=== PATIENT | female | born 1950 | race American Indian/Alaskan Native ===

== ENCOUNTER 2019-04-22 23:03 | Emergency (ER) | payer MEDICARE ==
[2019-04-22] MEDS ORDERED: MORPHINE 4 MG/1 ML INJ IM ONE (23:13)
[2019-04-22] MEDS ORDERED: ONDANSETRON 4 MG/2 ML INJ IM ONE (23:13)
--- NOTE | 2019-04-22 23:17 | Emergency Department Report ---
ED Back Pain/Injury HPI - General Chief Complaint: Back Pain/Injury Stated Complaint: BACK PAIN Time Seen by Provider: 04/22/19 23:09 Source: patient, EMS Limitations: Physical Limitation - History of Present Illness Initial Comments: Patient is 68 years old female, nontoxic, with history of diabetes and seizure. Patient brought to the emergency room via EMS from home for evaluation of sudden onset of lower back pain. Patient stated that she was bending to grab something from the ground when all of a sudden started having CVA or lower back pain. Patient described her pain as sharp with no radiation. Patient denied any weakness numbness or tingling sensation in the lower extremities. She also denied any bowel or bladder incontinence. No fever. MD Complaint: back pain, back injury -: This evening Similar Symptoms Previously: No Place: home Radiation: none Severity: moderate Quality: sharp Consistency: intermittent Improves With: immobilization Worsens With: movement Context: bending Associated Symptoms: denies other symptoms - Related Data Home Medications Medication Instructions Recorded Confirmed Last Taken Depakote 750 mg PO BID 10/22/15 10/22/15 Unknown Elavil 25 mg PO QHS 10/22/15 10/22/15 Unknown Lidocaine Topical 5% TRANSDERMA BID 10/22/15 Unknown Lopressor 25 mg PO DAILY 10/22/15 10/22/15 Unknown Norvasc 10 mg PO DAILY 10/22/15 10/22/15 Unknown Ventolin HFA 2 puff INHALATION Q6H PRN 10/22/15 10/22/15 Unknown Previous Rx's Medication Instructions Recorded Last Taken Type levoFLOXacin [Levaquin] 750 mg PO QDAY #10 tablet 10/27/15 Unknown Rx Allergies Allergy/AdvReac Type Severity Reaction Status Date / Time No Known Allergies Allergy Verified 10/22/15 09:48 ED Review of Systems ROS: Stated complaint: BACK PAIN Other details as noted in HPI Comment: All other systems reviewed and negative Constitutional: denies: chills, fever Respiratory: denies: cough, shortness of breath Cardiovascular: denies: chest pain Gastrointestinal: denies: abdominal pain, nausea, vomiting Musculoskeletal: back pain. denies: joint swelling Neurological: denies: headache, weakness, numbness, paresthesias, confusion, ab normal gait ED Past Medical Hx - Past Medical History Hx Hypertension: Yes Hx Arthritis: Yes Hx Seizures: Yes - Surgical History Additional Surgical History: Hysterectomy, Tonsillectomy - Social History Smoking Status: Never Smoker - Medications Home Medications: Home Medications Medication Instructions Recorded Confirmed Last Taken Type Depakote 750 mg PO BID 10/22/15 10/22/15 Unknown History Elavil 25 mg PO QHS 10/22/15 10/22/15 Unknown History Lidocaine Topical 5% TRANSDERMA BID 10/22/15 Unknown History Lopressor 25 mg PO DAILY 10/22/15 10/22/15 Unknown History Norvasc 10 mg PO DAILY 10/22/15 10/22/15 Unknown History Ventolin HFA 2 puff INHALATION Q6H PRN 10/22/15 10/22/15 Unknown History levoFLOXacin [Levaquin] 750 mg PO QDAY #10 tablet 10/27/15 Unknown Rx ED Physical Exam - General Limitations: Physical Limitation General appearance: alert, in no apparent distress - Head Head exam: Present: atraumatic, normocephalic, normal inspection - Eye Eye exam: Present: normal appearance - ENT ENT exam: Present: normal exam, normal orophraynx, mucous membranes moist - Neck Neck exam: Present: normal inspection - Respiratory Respiratory exam: Present: normal lung sounds bilaterally - Cardiovascular Cardiovascular Exam: Present: regular rate, normal rhythm, normal heart sounds - GI/Abdominal GI/Abdominal exam: Present: soft, normal bowel sounds. Absent: distended, tenderness, guarding, rebound, rigid, organomegaly, mass, bruit, pulsatile mass, hernia - Extremities Exam Extremities exam: Present: normal inspection, full ROM, normal capillary refill - Back Exam Back exam: Present: normal inspection, full ROM, paraspinal tenderness. Absent: tenderness, CVA tenderness (R), CVA tenderness (L), muscle spasm, vertebral tenderness - Neurological Exam Neurological exam: Present: alert, oriented X3, CN II-XII intact, normal gait, reflexes normal - Psychiatric Psychiatric exam: Present: normal mood - Skin Skin exam: Present: warm, intact, normal color ED Course Vital Signs 04/22/19 23:16 Temperature 98.3 F Pulse Rate 103 H Respiratory 18 Rate Blood Pressure 153/97 O2 Sat by Pulse 97 Oximetry ED Medical Decision Making - Medical Decision Making Patient is 68 years old female, nontoxic, with history of diabetes and seizure. Patient brought to the emergency room via EMS from home for evaluation of sudden onset of lower back pain. Patient stated that she was bending to grab something from the ground when all of a sudden started having CVA or lower back pain. Patient described her pain as sharp with no radiation. Patient denied any weakness numbness or tingling sensation in the lower extremities. She also denied any bowel or bladder incontinence. No fever. Patient received morphine and Zofran. Patient is sleeping comfortably in no acute distress. Patient stated that she is feeling much better. CT lumbar spine is unremarkable except for degenerative disease. Patient advised to follow-up with her primary care physician in the next 2-3 days and to return to the ER if symptoms have not improved. Critical care attestation.: If time is entered above; I have spent that time in minutes in the direct care of this critically ill patient, excluding procedure time. ED Disposition Clinical Impression: Acute back pain Disposition: DC-01 TO HOME OR SELFCARE Is pt being admited?: No Condition: Stable Instructions: Acute Low Back Pain (ED) Referrals: PRIMARY CARE [Referring] - 3-5 Days
--- NOTE | 2019-04-23 01:02 | Cat Scan Report ---
Examination: CT of the lumbar spine without contrast, 04/23/2019 Clinical information: Low back pain after heavy lifting Comparison: None Technical: Multiple axial CT images of the lumbar spine were obtained without intravenous contrast. S agittal and coronal reformats were obtained. All CTs at this facility utilize dose reduction techniq ues including automated exposure control, iterative reconstruction and weight based dosing when appro priate to reduce patient radiation dose to as low as reasonable achievable. Findings: There are moderately advanced bony degenerative changes throughout the lumbar spine with multilevel f acet arthropathy and anterior osteophyte formation. There is moderate disc space narrowing at the L4- L5 and L5-S1 level. Vertebral body alignment appears normal. Evaluation of limited intra-abdominal contents demonstrates multiple pancreatic calcifications. Impression: 1. Advanced degenerative changes of the lumbar spine. 2. Pancreatic calcifications compatible with chronic pancreatitis. Signer Name: Arelis Pop MD Signed: 04/23/2019 12:58 AM Workstation Name: [id number]
[2019-04-23 02:57] VITALS: BP 108/63
== END 2019-04-23 03:14 | disposition home or self-care (01) ==
LOC: ED 23:03
DX: M54.89 Other dorsalgia (principal); I10 Essential (primary) hypertension; M19.90 Unspecified osteoarthritis, unspecified site; Z86.69 Personal history of other diseases of the nervous system and sense organs; Z90.710 Acquired absence of both cervix and uterus; Z98.890 Other specified postprocedural states; Z79.899 Other long term (current) drug therapy
CPT/HCPCS: 72131; 96372; 99284; J2270; J2405

== ENCOUNTER 2019-09-01 22:17 | Inpatient (IN) | payer MEDICARE ==
--- NOTE | 2019-09-01 22:25 | Emergency Department Report ---
ED Shortness of Breath HPI - General Stated Complaint: SVT Time Seen by Provider: 09/01/19 22:20 Source: patient Mode of arrival: Stretcher Limitations: No Limitations - History of Present Illness Initial Comments: Ms. Valdovinos is a 69-year-old female with history of SVT, hypertension, seizure, diabetes mellitus who presents with shortness of breath since 10 AM this morning. She called her PCP Dr. Anam Vidales who recommended 911 transfer to the emergency department going directly to the emergency department. Upon arrival EMS discovered the patient did have labored breathing heart rate greater than 200. Systolic blood pressure 240 mmHg. Initial impression EMS ventricu lar tachycardia. Treated with amiodarone and adenosine. Upon my review of the EMS strip rhythm was narrow complex tachycardia, SVT. Patient denies chest pain. Patient does smoke tobacco. Patient denies fever, cough, sick contacts, travel. She has been home with male roommate. Current medications amitriptyline 25 mg 1 tablet p.o. at bedtime Januvia 100 mg 1 tablet daily Lisinopril 2.5 mg 1 tablet daily Amlodipine 2.5 mg 1 tablet daily Divalproex 250 mg ER 3 tablets twice daily Complaint: shortness of breath -: Gradual, This morning Severity: severe Consistency: constant Improves With: oxygen Worsens With: nothing Known History Of: other (SVT pulmonary embolism hypertension no history of coronary artery disease according to her report) - Related Data Home Medications Medication Instructions Recorded Confirmed Last Taken Amitriptyline [Elavil] 25 mg PO QHS 09/01/19 09/01/19 Unknown Amlodipine Besylate [Norvasc] 2.5 mg PO DAILY 09/01/19 09/01/19 Unknown Divalproex ER [DepaKOTE ER] 250 mg PO BID 09/01/19 09/01/19 Unknown Lisinopril [Zestril TAB] 2.5 mg PO QDAY 09/01/19 09/01/19 Unknown Sitagliptin Phosphate [Januvia] 100 mg PO DAILY 09/01/19 09/01/19 Unknown Allergies Allergy/AdvReac Type Severity Reaction Status Date / Time No Known Allergies Allergy Verified 10/22/15 09:48 ED Review of Systems ROS: Stated complaint: SVT Other details as noted in HPI Comment: All other systems reviewed and negative Constitutional: denies: fever, malaise Respiratory: shortness of breath. denies: cough Cardiovascular: palpitations. denies: chest pain Gastrointestinal: denies: abdominal pain ED Past Medical Hx - Past Medical History Previous Medical History?: Yes Hx Hypertension: Yes Hx Arthritis: Yes Hx Seizures: Yes - Surgical History Past Surgical History?: Yes Additional Surgical History: Hysterectomy, Tonsillectomy - Social History Smoking Status: Current Every Day Smoker - Medications Home Medications: Home Medications Medication Instructions Recorded Confirmed Last Taken Type Amitriptyline [Elavil] 25 mg PO QHS 09/01/19 09/01/19 Unknown History Amlodipine Besylate [Norvasc] 2.5 mg PO DAILY 09/01/19 09/01/19 Unknown History Divalproex ER [DepaKOTE ER] 250 mg PO BID 09/01/19 09/01/19 Unknown History Lisinopril [Zestril TAB] 2.5 mg PO QDAY 09/01/19 09/01/19 Unknown History Sitagliptin Phosphate [Januvia] 100 mg PO DAILY 09/01/19 09/01/19 Unknown History ED Physical Exam - General General appearance: alert, in no apparent distress - Head Head exam: Present: atraumatic, normocephalic - Eye Eye exam: Present: normal appearance. Absent: scleral icterus, conjunctival injection - ENT ENT exam: Present: mucous membranes moist - Neck Neck exam: Present: normal inspection - Respiratory Respiratory exam: Present: normal lung sounds bilaterally. Absent: respiratory distress, wheezes, rales, rhonchi - Cardiovascular Cardiovascular Exam: Present: normal rhythm, tachycardia, normal heart sounds. Absent: systolic murmur, diastolic murmur, rubs, gallop - GI/Abdominal GI/Abdominal exam: Present: soft, normal bowel sounds. Absent: distended, tenderness, guarding, rebound - Extremities Exam Extremities exam: Present: normal inspection - Neurological Exam Neurological exam: Present: alert, oriented X3 - Psychiatric Psychiatric exam: Present: normal affect, normal mood - Skin Skin exam: Present: warm, dry, intact, normal color. Absent: rash ED Course Vital Signs 09/01/19 09/01/19 09/01/19 22:27 22:29 23:00 Temperature 99.1 F Pulse Rate 113 H 118 H 112 H Respiratory 28 H 17 Rate Blood Pressure 124/80 Blood Pressure 124/80 [Right] O2 Sat by Pulse 98 95 Oximetry 09/02/19 09/02/19 00:00 00:30 Temperature Pulse Rate 102 H 100 H Respiratory 21 27 H Rate Blood Pressure 115/69 115/69 Blood Pressure [Right] O2 Sat by Pulse 89 96 Oximetry ED Medical Decision Making - Lab Data Result diagrams: 09/01/19 22:42 09/01/19 22:42 Laboratory Results - last 24 hr 09/01/19 09/01/19 09/01/19 22:42 22:42 22:42 WBC 8.1 RBC 4.68 Hgb 15.7 H Hct 45.9 H MCV 98 H MCH 34 H MCHC 34 RDW 15.2 Plt Count 110 L Lymph % (Auto) 10.3 L [place] % (Auto) 4.1 Eos % (Auto) 0.4 Baso % (Auto) 1.1 Lymph # 0.8 L [place] # 0.3 Eos # 0.0 Baso # 0.1 Seg Neutrophils % 84.1 H Seg Neutrophils # 6.8 PT 13.8 INR 1.05 APTT 25.7 D-Dimer 374.58 H Sodium 135 L Potassium 3.4 L Chloride 95.5 L Carbon Dioxide 25 Anion Gap 18 BUN 19 H Creatinine 1.4 H Estimated GFR 45 BUN/Creatinine Ratio 14 Glucose 146 H Calcium 9.3 Total Bilirubin 0.50 AST 18 ALT 8 Alkaline Phosphatase 72 Troponin T 0.031 H NT-Pro-B Natriuret Pep Total Protein 7.2 Albumin 3.2 L Albumin/Globulin Ratio 0.8 Triglycerides 147 Cholesterol 190 LDL Cholesterol Direct 125 HDL Cholesterol 32 L Cholesterol/HDL Ratio 5.93 09/01/19 09/02/19 22:42 01:15 WBC RBC Hgb Hct MCV MCH MCHC RDW Plt Count Lymph % (Auto) [place] % (Auto) Eos % (Auto) Baso % (Auto) Lymph # [place] # Eos # Baso # Seg Neutrophils % Seg Neutrophils # PT INR APTT D-Dimer Sodium Potassium Chloride Carbon Dioxide Anion Gap BUN Creatinine Estimated GFR BUN/Creatinine Ratio Glucose Calcium Total Bilirubin AST ALT Alkaline Phosphatase Troponin T 0.070 H D NT-Pro-B Natriuret Pep 532.1 Total Protein Albumin Albumin/Globulin Ratio Triglycerides Cholesterol LDL Cholesterol Direct HDL Cholesterol Cholesterol/HDL Ratio - EKG Data 09/01/19 22:25 EKG obtained 2216 Sinus tachycardia rate 115 bpm left axis deviation right bundle branch block no ST elevation nonspecific T wave pattern - Radiology Data Radiology results: report reviewed Portable chest 1 view: Mild interstitial disease no airspace consolidation no pneumothorax according to radiology report and my personal interpretation Lung perfusion scan: Bilateral subsegmental perfusion defects differential diagnosis chronic interstitial fibrosis versus small pulmonary emboli - Medical Decision Making Mrs. 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 For rate control per EMS patient required antiarrhythmic and AV lisa blockade with amiodarone and adenosine respectively. Due to comorbid illnesses and cardiovascular risk factors, further inpatient cardiac evaluation is indicated. Due to moderate suspicion of pulmonary embolism and equivocal lung perfusion scan, I do not suspect acute pulmonary embolism as a cause of her symptoms including SVT. CTA unable to be obtained due to lack of appropriate IV access and decreased GFR. Tachycardia has spontaneously resolved. Critical care attestation.: If time is entered above; I have spent that time in minutes in the direct care of this critically ill patient, excluding procedure time. ED Disposition Clinical Impression: SVT (supraventricular tachycardia), Dyspnea Disposition: 09 OP ADMIT IP TO THIS HOSP Is pt being admited?: Yes Does the pt Need Aspirin: No Condition: Stable
[2019-09-01] MEDS ORDERED: ASPIRIN 325 MG TAB PO ONE (22:26)
--- NOTE | 2019-09-01 23:11 | XRay Report ---
CHEST 1 VIEW INDICATION / CLINICAL INFORMATION: Shortness of breath. COMPARISON: 10/26/2015 FINDINGS: SUPPORT DEVICES: None. HEART / MEDIASTINUM: No significant abnormality. LUNGS / PLEURA: There is mild interstitial prominence bilaterally, increased since the comparison bryan dy. No demonstrated airspace consolidation. No pneumothorax. ADDITIONAL FINDINGS: No significant additional findings. IMPRESSION: 1. Mild interstitial disease. Signer Name: Ezekiel Berrios MD Signed: 09/01/2019 11:07 PM Workstation Name: [id number]
[2019-09-01 23:23] LABS: Basophils # (Auto) 0.1 K/mm3 (0.0-0.1); Basophils % (Auto) 1.1 % (0.0-1.8); Eosinophils % (Auto) 0.4 % (0.0-4.3); Hematocrit 45.9 % (30.3-42.9); Hemoglobin 15.7 gm/dl (10.1-14.3); Lymphocytes # (Auto) 0.8 K/mm3 (1.2-5.4); Lymphocytes % (Auto) 10.3 % (13.4-35.0); Mean Corpuscular HGB Conc 34 % (30-34); Mean Corpuscular Volume 98 fl (79-97); Monocytes # (Auto) 0.3 K/mm3 (0.0-0.8); Monocytes % (Auto) 4.1 % (0.0-7.3); Platelet Count 110 K/mm3 (140-440); Red Blood Count 4.68 M/mm3 (3.65-5.03); Red Cell Distribution Width 15.2 % (13.2-15.2)
[2019-09-01 23:41] LABS: INR 1.05 (0.87-1.13)
[2019-09-01 23:42] LABS: Partial Thromboplastin Time 25.7 Sec. (24.2-36.6)
[2019-09-01 23:43] LABS: Albumin 3.2 g/dL (3.9-5); Calcium 9.3 mg/dL (8.4-10.2)
[2019-09-02 01:11] LABS: Chol/HDL Ratio 5.93 %
--- NOTE | 2019-09-02 01:29 | Nuclear Medicine Report ---
NM perfusion only lung scan INDICATION / CLINICAL INFORMATION: dyspnea tachycardia hx of PE. TECHNIQUE: Dose / Agent / Route: 5mCi technetium 99m MAA IV COMPARISON: AP chest x-ray 09/01/2019 FINDINGS: There are bilateral subsegmental perfusion defects. There is upper zone predominance. Interstitial opacity on the chest x-ray may represent chronic lung disease. IMPRESSION: 1. Abnormal perfusion scan most likely on the basis of chronic interstitial fibrosis but small pulmon donna emboli could produce these findings. Signer Name: Ezekiel Berrios MD Signed: 09/02/2019 1:25 AM Workstation Name: [id number]
[2019-09-02] MEDS ORDERED: DEXTROSE 50% IN WATER (25GM) 50 ML SYRINGE IV PRN (02:54)
[2019-09-02] MEDS ORDERED: ONDANSETRON 4 MG/2 ML INJ IV PRN (02:54)
--- NOTE | 2019-09-02 03:00 | History and Physical Report ---
History of Present Illness History of present illness: 69-year-old woman with hypertension, diabetes, chronic kidney disease comes emergency room for evaluation. She stated that this morning she started having palpitations, symptoms worsen so she came to the emergency room for evaluation. Also complain of a dry cough, no fever, chills, recent travel, sick contacts. Per EMS report the patient was in SVT with a rate in the 200s, blood pressure was also in the 200s, she was given adenosine then amiodarone. Patient is now in normal sinus, regular rate. Patient will be admitted for pneumonia, rule out covid Review Of Systems: Constitutional: no weight loss, fever, chills Ears, eyes, nose, mouth and throat: no nasal congestion, no nasal discharge, no sinus pressure, blurry vision, diplopia Neck: No neck pain or rigidity. Cardiovascular: No palpitations, chest pain Respiratory: No shortness of breath, cough Gastrointestinal: No hematochezia Genitourinary : no dysuria, frequency Musculoskeletal: no muscle ache , joint pain Integumentary: no rash, no pruritis Neurological: no parathesias, focal weakness Endocrine: no cold or heat intolerance, no polyuria or polydipsia Hematologic/Lymphatic: no easy bruising, no easy bleeding, no gland swelling Allergic/Immunologic: no urticaria, no angioedema. PAST MEDICAL HISTORY: hypertension, diabetes, chronic kidney disease PAST SURGICAL HISTORY: hysterectomy SOCIAL HISTORY: Social alcohol, smoke 1 pack a day, no drugs FAMILY HISTORY: Hypertension Medications and Allergies Allergies Allergy/AdvReac Type Severity Reaction Status Date / Time No Known Allergies Allergy Verified 10/22/15 09:48 Home Medications Medication Instructions Recorded Confirmed Last Taken Type Amitriptyline [Elavil] 25 mg PO QHS 09/01/19 09/01/19 Unknown History Amlodipine Besylate [Norvasc] 2.5 mg PO DAILY 09/01/19 09/01/19 Unknown History Divalproex ER [DepaKOTE ER] 250 mg PO BID 09/01/19 09/01/19 Unknown History Lisinopril [Zestril TAB] 2.5 mg PO QDAY 09/01/19 09/01/19 Unknown History Sitagliptin Phosphate [Januvia] 100 mg PO DAILY 09/01/19 09/01/19 Unknown History Active Meds: Active Medications Acetaminophen (Tylenol) 650 mg PO Q4H PRN PRN Reason: Pain MILD(1-3)/Fever >100.5/NÚÑEZ Dextrose (D50w (25gm) Syringe) 50 ml IV Q30MIN PRN; Protocol PRN Reason: Hypoglycemia Enoxaparin Sodium (Enoxaparin) 30 mg SUB-Q QDAY EYAD Sodium Chloride (Nacl 0.9% 1000 Ml) 1,000 mls @ 75 mls/hr IV DIRECT EYAD Ondansetron HCl (Zofran) 4 mg IV Q8H PRN PRN Reason: Nausea And Vomiting Sodium Chloride (Sodium Chloride Flush Syringe 10 Ml) 10 ml IV BID EYAD Sodium Chloride (Sodium Chloride Flush Syringe 10 Ml) 10 ml IV PRN PRN PRN Reason: LINE FLUSH Exam - Physical Exam Narrative exam: Gen. appearance: Patient lying in bed, no apparent distress HEENT: Normocephalic, atraumatic, pupils equally round and reactive to light, extraocular movement intact, and no sclericterus,. No JVD or thyromegaly or nod ule,neck supple, no carotid bruit ,mucous membranes moist, no exudate or erythema Heart: S1, S2, regular rate and rhythm Lungs: Decreased breath sounds bilaterally, breathing comfortable Abdomen: Positive bowel sounds, nontender, nondistended, no organomegaly Extremity: no edema, cyanosis, clubbing Skin: No rash, nodules, warm, dry Neuro: speech is fluent, moves extremities, sensory intact - Constitutional Vitals: Temp Pulse Resp BP Pulse Ox 99.1 F 81 25 H 112/70 95 09/01/19 22:27 09/02/19 02:30 09/02/19 02:30 09/02/19 02:30 09/02/19 02:30 Results - Labs CBC & Chem 7: 09/01/19 22:42 09/01/19 22:42 Labs: Abnormal lab results 09/01/19 09/01/19 09/01/19 Range/Units 22:42 22:42 22:42 Hgb 15.7 H (10.1-14.3) gm/dl Hct 45.9 H (30.3-42.9) % MCV 98 H (79-97) fl MCH 34 H (28-32) pg Plt Count 110 L (140-440) K/mm3 Lymph % (Auto) 10.3 L (13.4-35.0) % Lymph # 0.8 L (1.2-5.4) K/mm3 Seg Neutrophils % 84.1 H (40.0-70.0) % D-Dimer 374.58 H (0-234) ng/mlDDU Sodium 135 L (137-145) mmol/L Potassium 3.4 L (3.6-5.0) mmol/L Chloride 95.5 L (98-107) mmol/L BUN 19 H (7-17) mg/dL Creatinine 1.4 H (0.7-1.2) mg/dL Glucose 146 H (65-100) mg/dL Troponin T 0.031 H (0.00-0.029) ng/mL Albumin 3.2 L (3.9-5) g/dL HDL Cholesterol 32 L (40-59) mg/dL 09/02/19 Range/Units 01:15 Hgb (10.1-14.3) gm/dl Hct (30.3-42.9) % MCV (79-97) fl MCH (28-32) pg Plt Count (140-440) K/mm3 Lymph % (Auto) (13.4-35.0) % Lymph # (1.2-5.4) K/mm3 Seg Neutrophils % (40.0-70.0) % D-Dimer (0-234) ng/mlDDU Sodium (137-145) mmol/L Potassium (3.6-5.0) mmol/L Chloride (98-107) mmol/L BUN (7-17) mg/dL Creatinine (0.7-1.2) mg/dL Glucose (65-100) mg/dL Troponin T 0.070 H D (0.00-0.029) ng/mL Albumin (3.9-5) g/dL HDL Cholesterol (40-59) mg/dL - Imaging and Cardiology EKG: image reviewed Chest x-ray: report reviewed Assessment and Plan Assessment Assessment SVT Check cardiac enzymes, consult cardiology v/q equivocial, check doppler of LE Fever, cough, rule out covid Start Rocephin, consult ID Placed on contact and droplet precaution Paperwork for COVID were filled out, Department of Health notified Hypertension Continue outpatient medications Diabetes check fingersticks, start insulin sliding scale DVT prophylaxis
[2019-09-02] MEDS: SODIUM CHLORIDE 0.9% 1000 ML 1,000 ML IV SCH ×3 (03:39→21:38)
[2019-09-02 04:31] LABS: Creatine Kinase MB 2.9 ng/mL (0.0-4.0)
[2019-09-02] MEDS: DIVALPROEX ER 250 MG TAB PO SCH ×2 (09:53→21:50)
[2019-09-02] MEDS: ENOXAPARIN 40 MG/0.4 ML INJ SUB-Q SCH (09:53)
[2019-09-02] MEDS: LISINOPRIL 5 MG TAB PO SCH (09:53)
[2019-09-02] MEDS: LINAGLIPTIN 5 MG TAB PO SCH (09:53)
[2019-09-02] MEDS ORDERED: NON-FORMULARY EACH (Sitagliptin Phosphate [Januvia] 100 MG) PO SCH (10:00)
[2019-09-02] MEDS ORDERED: AMLODIPINE BESYLATE 2.5 MG PO SCH (10:00)
[2019-09-02] MEDS ORDERED: amLODIPine 5 MG TAB PO SCH (10:00)
[2019-09-02] MEDS ORDERED: NON-FORMULARY EACH (Lisinopril [Zestril Tab] 2.5 MG) PO SCH (10:00)
[2019-09-02 10:07] LABS: Calcium 8.8 mg/dL (8.4-10.2)
[2019-09-02 10:08] LABS: Creatine Kinase MB 3.1 ng/mL (0.0-4.0)
[2019-09-02 10:09] LABS: C-Reactive Protein 13.1 mg/dL (0.00-1.30)
--- NOTE | 2019-09-02 13:25 | Consultation ---
History of Present Illness Consult date: 09/02/19 Requesting physician: VIKTOR DELUCA Consult reason: other (svt) History of present illness: The pt is a 69-year-old female with history of paroxysmal SVT, hypertension, seizure disorder, diabetes. She is previously unknown to our practice. Pt is COVID-19 PUI and thus HPI is obtained per the chart. Pt presented with c/o SOB since yesterday morning. She called her PCP Dr. Anam Vidales who recommended 911 transfer to the emergency department. Upon EMS arrival, patient found to have labored breathing heart rate greater than 200. Systolic blood pressure 240 mmHg. Initial impression per EMS ventricular tachycardia, pt was given amiodarone and adenosine. Per ED physician, EMS strip rhythm showed narrow complex tachycardia, SVT. Rhythm strips are not currently available for review. Review of ECG and telemetry since admission shows NSR. 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 Past History Past Medical History: other (as per HPI) Medications and Allergies Allergies Allergy/AdvReac Type Severity Reaction Status Date / Time No Known Allergies Allergy Verified 10/22/15 09:48 Home Medications Medication Instructions Recorded Confirmed Last Taken Type Amitriptyline [Elavil] 25 mg PO QHS 09/01/19 09/01/19 Unknown History Amlodipine Besylate [Norvasc] 2.5 mg PO DAILY 09/01/19 09/01/19 Unknown History Divalproex ER [DepaKOTE ER] 250 mg PO BID 09/01/19 09/01/19 Unknown History Lisinopril [Zestril TAB] 2.5 mg PO QDAY 09/01/19 09/01/19 Unknown History Sitagliptin Phosphate [Januvia] 100 mg PO DAILY 09/01/19 09/01/19 Unknown History Active Meds: Active Medications Acetaminophen (Tylenol) 650 mg PO Q4H PRN PRN Reason: Pain MILD(1-3)/Fever >100.5/NÚÑEZ Amitriptyline HCl (Elavil) 25 mg PO QHS [facility] Amlodipine Besylate (Amlodipine) 2.5 mg PO QDAY [facility] Last Admin: 09/02/19 09:53 Dose: 2.5 mg Documented by: Dextrose (D50w (25gm) Syringe) 0 ml IV Q30MIN PRN; Protocol PRN Reason: Hypoglycemia Divalproex Sodium (Depakote Er) 250 mg PO BID [facility] Last Admin: 09/02/19 09:53 Dose: 250 mg Documented by: Enoxaparin Sodium (Enoxaparin) 40 mg SUB-Q QDAY [facility] Last Admin: 09/02/19 09:53 Dose: 40 mg Documented by: Sodium Chloride (Nacl 0.9% 1000 Ml) 1,000 mls @ 75 mls/hr IV DIRECT [facility] Last Admin: 09/02/19 03:39 Dose: 75 mls/hr Documented by: Linagliptin (Tradjenta) 5 mg PO QDAY [facility] Last Admin: 09/02/19 09:53 Dose: 5 mg Documented by: Lisinopril (Zestril) 2.5 mg PO QDAY [facility] Last Admin: 09/02/19 09:53 Dose: 2.5 mg Documented by: Ondansetron HCl (Zofran) 4 mg IV Q8H PRN PRN Reason: Nausea And Vomiting Sodium Chloride (Sodium Chloride Flush Syringe 10 Ml) 10 ml IV BID [facility] Last Admin: 09/02/19 09:53 Dose: 10 ml Documented by: Sodium Chloride (Sodium Chloride Flush Syringe 10 Ml) 10 ml IV PRN PRN PRN Reason: LINE FLUSH Review of Systems All systems: negative (as per HPI) Physical Examination Vital Signs Temp Pulse Resp BP Pulse Ox 99.1 F 113 H 28 H 124/80 98 09/01/19 22:27 09/01/19 22:27 09/01/19 22:27 09/01/19 22:27 09/01/19 22:27 Narrative exam: Physical examination deferred to primary team Results 09/01/19 22:42 09/02/19 08:24 Cardiac Enzymes 09/01/19 09/02/19 09/02/19 Range/Units 22:42 03:58 08:24 AST 18 (5-40) units/L Lactate Dehydrogenase 266 H (91-180) units/L CK-MB (CK-2) 2.9 3.1 (0.0-4.0) ng/mL Coagulation 09/01/19 Range/Units 22:42 PT 13.8 (12.2-14.9) Sec. INR 1.05 (0.87-1.13) APTT 25.7 (24.2-36.6) Sec. Lipids 09/01/19 Range/Units 22:42 Triglycerides 147 (2-149) mg/dL Cholesterol 190 (50-199) mg/dL HDL Cholesterol 32 L (40-59) mg/dL Cholesterol/HDL Ratio 5.93 % CBC 09/01/19 Range/Units 22:42 WBC 8.1 (4.5-11.0) K/mm3 RBC 4.68 (3.65-5.03) M/mm3 Hgb 15.7 H (10.1-14.3) gm/dl Hct 45.9 H (30.3-42.9) % Plt Count 110 L (140-440) K/mm3 Lymph # 0.8 L (1.2-5.4) K/mm3 [place] # 0.3 (0.0-0.8) K/mm3 Eos # 0.0 (0.0-0.4) K/mm3 Baso # 0.1 (0.0-0.1) K/mm3 Comprehensive Metabolic Panel 09/01/19 09/02/19 Range/Units 22:42 08:24 Sodium 135 L 134 L (137-145) mmol/L Potassium 3.4 L 3.6 (3.6-5.0) mmol/L Chloride 95.5 L 93.8 L (98-107) mmol/L Carbon Dioxide 25 25 (22-30) mmol/L BUN 19 H 22 H (7-17) mg/dL Creatinine 1.4 H 1.2 (0.7-1.2) mg/dL Glucose 146 H 102 H (65-100) mg/dL Calcium 9.3 8.8 (8.4-10.2) mg/dL AST 18 (5-40) units/L ALT 8 (7-56) units/L Alkaline Phosphatase 72 (35-129) units/L Total Protein 7.2 (6.3-8.2) g/dL Albumin 3.2 L (3.9-5) g/dL - Imaging and Cardiology Echo: pending EKG: report reviewed, image reviewed EKG interpretations - Telemetry EKG Rhythm: Sinus Rhythm - EKG Sinus rhythms and dysrhythmias: sinus rhythm AV and intraventricular conduction: right bundle branch block, left anterior fascicular Assessment and Plan Initiate lopressor. Obtain thyroid profile and serum Mg. Obtain echo. Cont to observe on telemetry. Consider stress test once medically stabilized - could be done as OP. R/o COVID-19 per primary. Will follow. The patient has been seen in conjunction with Dr. Yessy Choe who agrees with the assessment and plan of care. - Patient Problems (1) SVT (supraventricular tachycardia) Current Visit: Yes Status: Suspected (2) RBBB Current Visit: Yes Status: Acute (3) Suspected 2019 novel coronavirus infection Current Visit: Yes Status: Suspected (4) HTN (hypertension) Current Visit: Yes Status: Chronic (5) Diabetes Current Visit: Yes Status: Chronic (6) History of seizure Current Visit: Yes Status: Chronic
--- NOTE | 2019-09-02 14:31 | Event Note ---
Date: 09/02/19 Patient seen and examined remains clinically stable no new complaints at this time. She complains of bilateral knee pain which is chronic for her she has osteoarthritis. Continue rule out for COVID 19 induced pneumonia
--- NOTE | 2019-09-02 20:43 | Consultation ---
History of Present Illness - Reason for Consult Consult date: 09/02/19 r/o COVID Requesting physician: VIKTOR DELUCA - History of Present Illness 69-year-old woman with hypertension, paroximal SVT, seizure disorder, diabetes, chronic kidney disease admitted on due to 3-day history of generalized weakness, palpitations, sweats, cough and progressive SOB. She called her PCP who sent her to the ED. She lives in [place], has been mainly staying home. comes emergency room for evaluation. Per EMS report, the patient was in SVT with a rate in the 200s, blood pressure was also in the 200s, she was given adenosine then amiodarone. On arrival, temp 99.1, HR 113. WB 8.1. Plat 110. Creat 1.4. CRP 13. LDH 266. Ferritin 711. Ddimer 374. Influenza ag negative. CXR with bilateral interstitial prominence. Review of Systems: positive in bold print General: + fever, +chills, +malaise Cutaneous: rash, pruritus Head: headaches or injury Eyes: changes in vision, eye pain, double vision Ears: ear pain, ear discharge, ringing or hearing loss Nose: nose bleeding, stuffiness Mouth & throat: bleeding gums, horseness, no dental problems, or swollen glands Neck: no pain, node enlargement/lumps, tyroid enlargement or tenderness Respiratory: +SOB, +cough, +STEVENSON, wheezing, pleuritic chest pain Cardiovascular: +palpitations, chest pain, leg edema, cyanosis, STEVENSON, orthopnea Musculoskeletal: edema Gastrointestinal: nausea, vomiting, hematemesis, diarrhea, constipation, melena, bright red blood in stools, fecal incontinence, jaundice Genitourinary/Reproductive: frequent urination, dysuria, hematuria, incontinence Neurogical: seizures, headaches, weakness, paresthesias, loss of speech or vision; memory loss, vertigo, tremors, numbness Psychiatric: stable mood; excessive anxiety, sadness or moodiness Past History Past Medical History: other (as per HPI) Medications and Allergies Allergies Allergy/AdvReac Type Severity Reaction Status Date / Time No Known Allergies Allergy Verified 10/22/15 09:48 Home Medications Medication Instructions Recorded Confirmed Last Taken Type Amitriptyline [Elavil] 25 mg PO QHS 09/01/19 09/01/19 Unknown History Amlodipine Besylate [Norvasc] 2.5 mg PO DAILY 09/01/19 09/01/19 Unknown History Divalproex ER [DepaKOTE ER] 250 mg PO BID 09/01/19 09/01/19 Unknown History Lisinopril [Zestril TAB] 2.5 mg PO QDAY 09/01/19 09/01/19 Unknown History Sitagliptin Phosphate [Januvia] 100 mg PO DAILY 09/01/19 09/01/19 Unknown History Active Meds: Active Medications Acetaminophen (Tylenol) 650 mg PO Q4H PRN PRN Reason: Pain MILD(1-3)/Fever >100.5/NÚÑEZ Amitriptyline HCl (Elavil) 25 mg PO QHS [facility] Dextrose (D50w (25gm) Syringe) 0 ml IV Q30MIN PRN; Protocol PRN Reason: Hypoglycemia Divalproex Sodium (Depakote Er) 250 mg PO BID [facility] Last Admin: 09/02/19 09:53 Dose: 250 mg Documented by: Enoxaparin Sodium (Enoxaparin) 40 mg SUB-Q QDAY [facility] Last Admin: 09/02/19 09:53 Dose: 40 mg Documented by: Sodium Chloride (Nacl 0.9% 1000 Ml) 1,000 mls @ 75 mls/hr IV DIRECT [facility] Last Admin: 09/02/19 19:49 Dose: 75 mls/hr Documented by: Linagliptin (Tradjenta) 5 mg PO QDAY [facility] Last Admin: 09/02/19 09:53 Dose: 5 mg Documented by: Lisinopril (Zestril) 2.5 mg PO QDAY [facility] Last Admin: 09/02/19 09:53 Dose: 2.5 mg Documented by: Metoprolol Tartrate (Metoprolol) 25 mg PO BID [facility] Ondansetron HCl (Zofran) 4 mg IV Q8H PRN PRN Reason: Nausea And Vomiting Sodium Chloride (Sodium Chloride Flush Syringe 10 Ml) 10 ml IV BID [facility] Last Admin: 09/02/19 09:53 Dose: 10 ml Documented by: Sodium Chloride (Sodium Chloride Flush Syringe 10 Ml) 10 ml IV PRN PRN PRN Reason: LINE FLUSH Physical Examination - Physical Exam Narrative exam: Exam performed in conjunction with nursings staff due to lack of PPE General appearance: Alert in NAD Eyes: limited due to lack of PPE HENT: Atraumatic; oropharynx limited due to lack of PPE Lungs: Coarse breath sounds bilaterally CV: RRR Abdomen: limited due to lack of PPE Extremities: limited due to lack of PPE Skin: No rash. Psych: Appropriate affect, alert and oriented to person, place and time. Neuro: alert and oriented x 3. Moving all extermities - Constitutional Vitals: Vital Signs Temp Pulse Resp BP Pulse Ox 97.5 F L 100 H 22 137/72 91 09/02/19 17:28 09/02/19 18:04 09/02/19 18:04 09/02/19 17:28 09/02/19 18:04 Temperature -Last 24 Hours Temperature 97.5 F Temperature 98.0 F Temperature 97.4 F Temperature 99.1 F Results - Labs CBC & Chem 7: 09/01/19 22:42 09/02/19 08:24 Labs: Abnormal lab results 09/01/19 09/01/19 09/01/19 Range/Units 22:42 22:42 22:42 Hgb 15.7 H (10.1-14.3) gm/dl Hct 45.9 H (30.3-42.9) % MCV 98 H (79-97) fl MCH 34 H (28-32) pg Plt Count 110 L (140-440) K/mm3 Lymph % (Auto) 10.3 L (13.4-35.0) % Lymph # 0.8 L (1.2-5.4) K/mm3 Seg Neutrophils % 84.1 H (40.0-70.0) % D-Dimer 374.58 H (0-234) ng/mlDDU Sodium 135 L (137-145) mmol/L Potassium 3.4 L (3.6-5.0) mmol/L Chloride 95.5 L (98-107) mmol/L BUN 19 H (7-17) mg/dL Creatinine 1.4 H (0.7-1.2) mg/dL Glucose 146 H (65-100) mg/dL Ferritin (13.0-400.0) ng/mL Lactate Dehydrogenase (91-180) units/L CK-MB (CK-2) Rel Index (0-4) Troponin T 0.031 H (0.00-0.029) ng/mL C-Reactive Protein (0.00-1.30) mg/dL Albumin 3.2 L (3.9-5) g/dL HDL Cholesterol 32 L (40-59) mg/dL 09/02/19 09/02/19 09/02/19 Range/Units 01:15 03:58 08:24 Hgb (10.1-14.3) gm/dl Hct (30.3-42.9) % MCV (79-97) fl MCH (28-32) pg Plt Count (140-440) K/mm3 Lymph % (Auto) (13.4-35.0) % Lymph # (1.2-5.4) K/mm3 Seg Neutrophils % (40.0-70.0) % D-Dimer (0-234) ng/mlDDU Sodium (137-145) mmol/L Potassium (3.6-5.0) mmol/L Chloride (98-107) mmol/L BUN (7-17) mg/dL Creatinine (0.7-1.2) mg/dL Glucose (65-100) mg/dL Ferritin (13.0-400.0) ng/mL Lactate Dehydrogenase 266 H (91-180) units/L CK-MB (CK-2) Rel Index 4.5 H (0-4) Troponin T 0.070 H D 0.069 H 0.047 H D (0.00-0.029) ng/mL C-Reactive Protein 13.10 H (0.00-1.30) mg/dL Albumin (3.9-5) g/dL HDL Cholesterol (40-59) mg/dL 09/02/19 09/02/19 Range/Units 08:24 09:16 Hgb (10.1-14.3) gm/dl Hct (30.3-42.9) % MCV (79-97) fl MCH (28-32) pg Plt Count (140-440) K/mm3 Lymph % (Auto) (13.4-35.0) % Lymph # (1.2-5.4) K/mm3 Seg Neutrophils % (40.0-70.0) % D-Dimer (0-234) ng/mlDDU Sodium 134 L (137-145) mmol/L Potassium (3.6-5.0) mmol/L Chloride 93.8 L (98-107) mmol/L BUN 22 H (7-17) mg/dL Creatinine (0.7-1.2) mg/dL Glucose 102 H (65-100) mg/dL Ferritin 711.6 H (13.0-400.0) ng/mL Lactate Dehydrogenase (91-180) units/L CK-MB (CK-2) Rel Index (0-4) Troponin T (0.00-0.029) ng/mL C-Reactive Protein (0.00-1.30) mg/dL Albumin (3.9-5) g/dL HDL Cholesterol (40-59) mg/dL Assessment and Plan Culture: none Assessment: 69-year-old woman with hypertension, paroximal SVT, seizure disorder, diabetes, chronic kidney disease admitted on due to 3-day history of generalized weakness, palpitations, sweats, cough and progressive SOB: #Severe sepsis: Present on admission with low grade fever, tachycardia, KI. Li morgan due to bilateral pneumonia #Bilateral pneumonia: suspicion for COVID pneumonia. COVID test pending. Risk for ARDS is mild for now. Inflammatory markers - mildly elevated - CRP 13. LDH 266. Ferritin 711. Ddimer 374. #Acute hypoxemia: on NC 2 L #STV #Thrombocytopenia: due to COVIV? Recommendations: Continuos pulse oximetry and exercise oxymetry Repeat CXR in the am Continue COVID isolation precautions per [facility] protocol Follow-up COVID testing Check serial Ferritin, LDH, D-Dimer, CRP every 48 hour Start ceftriaxone 2 gm IV q day and azithromycin Will follow Constance Hu MD Infectious Diseases Hemstitching Machine Operator [facility] ([facility]) M [phone] O [phone]
[2019-09-02] MEDS ORDERED: cefTRIAXone/NS 2 GM/100 ML 2 GM/100 ML BAG IV SCH (21:00)
[2019-09-02] MEDS: AMITRIPTYLINE 25 MG TAB PO SCH (21:50)
[2019-09-02] MEDS: METOPROLOL TARTRATE 25 MG TAB PO SCH (21:51)
[2019-09-02] MEDS: ACETAMINOPHEN 325 MG TAB PO PRN (21:52)
[2019-09-02] MEDS: cefTRIAXone/NS 2 GM/100 ML 2 GM/100 ML BAG IV SCH (21:54)
[2019-09-03] MEDS: cefTRIAXone/NS 2 GM/100 ML 2 GM/100 ML BAG IV SCH (09:03)
[2019-09-03] MEDS: ENOXAPARIN 40 MG/0.4 ML INJ SUB-Q SCH (09:03)
[2019-09-03] MEDS: METOPROLOL TARTRATE 25 MG TAB PO SCH ×2 (09:04→22:08)
[2019-09-03] MEDS: AZITHROMYCIN 250 MG TAB PO SCH (09:04)
[2019-09-03] MEDS: DIVALPROEX ER 250 MG TAB PO SCH ×2 (09:05→22:07)
[2019-09-03] MEDS: LISINOPRIL 5 MG TAB PO SCH (09:07)
[2019-09-03] MEDS: LINAGLIPTIN 5 MG TAB PO SCH (09:10)
[2019-09-03] MEDS ORDERED: cefTRIAXone/NS 2 GM/100 ML 2 GM/100 ML BAG IV SCH (10:00)
--- NOTE | 2019-09-03 11:14 | Progress Note ---
Assessment and Plan Tele reviewed - in NSR with no acute events overnight. tte reviewed - EF 35-40%, mild LVH. No apparent evidence of acutely decompensated HF. Cont present cardiac management, including lopressor and lisinopril. Cont to observe on telemetry. Consider stress test once medically stabilized - could be done as OP. R/o COVID-19 per primary. The patient has been seen in conjunction with Dr. Yessy Choe who agrees with the assessment and plan of care. - Patient Problems (1) SVT (supraventricular tachycardia) Current Visit: Yes Status: Suspected (2) RBBB Current Visit: Yes Status: Acute (3) Suspected 2019 novel coronavirus infection Current Visit: Yes Status: Suspected (4) HTN (hypertension) Current Visit: Yes Status: Chronic (5) Diabetes Current Visit: Yes Status: Chronic (6) History of seizure Current Visit: Yes Status: Chronic Subjective Date of service: 09/03/19 Principal diagnosis: SVT Interval history: tele reviewed - in NSR, no acute events noted overnight. PUI?: Yes COVID19: Pending Objective Last Vital Signs Temp 99.9 F H 09/03/19 04:20 Pulse 100 H 09/03/19 09:07 Resp 22 09/03/19 06:00 BP 133/69 09/03/19 09:07 Pulse Ox 95 09/03/19 09:35 - Physical Examination Narrative exam: Physical examination deferred to primary team - Imaging and Cardiology EKG: report reviewed, image reviewed Echo: pending - EKG Sinus rhythms and dysrhythmias: sinus rhythm AV and intraventricular conduction: right bundle branch block, left anterior fascicular
[2019-09-03 11:28] LABS: Basophils % (Auto) 0.8 % (0.0-1.8); Hemoglobin 14.7 gm/dl (10.1-14.3); Lymphocytes # (Auto) 0.7 K/mm3 (1.2-5.4); Lymphocytes % (Auto) 16.2 % (13.4-35.0); Mean Corpuscular HGB Conc 35 % (30-34); Mean Corpuscular Volume 95 fl (79-97); Monocytes # (Auto) 0.3 K/mm3 (0.0-0.8); Monocytes % (Auto) 5.6 % (0.0-7.3); Platelet Count 121 K/mm3 (140-440); Red Blood Count 4.41 M/mm3 (3.65-5.03)
[2019-09-03 11:55] LABS: BUN/Creatinine Ratio 16; Blood Urea Nitrogen 13 mg/dL (7-17); Calcium 8.6 mg/dL (8.4-10.2); Hemolysis Index 20
[2019-09-03] MEDS: SODIUM CHLORIDE 0.9% 1000 ML 1,000 ML IV SCH (14:22)
--- NOTE | 2019-09-03 19:19 | Progress Note ---
Assessment and Plan Culture: none Assessment: 69-year-old woman with hypertension, paroximal SVT, seizure disorder, diabetes, chronic kidney disease admitted on due to 3-day history of generalized weakness, palpitations, sweats, cough and progressive SOB: #Severe sepsis: fever better. Likely due to bilateral pneumonia #COVID pneumonia: COVID test positive.Risk for ARDS is mild for now. Inflammatory markers - mildly elevated - CRP 13. LDH 266. Ferritin 711. Ddimer 374. #Acute hypoxemia: on NC 2 L #STV #Thrombocytopenia: due to COVID? Better Recommendations: Continuos pulse oximetry and exercise oxymetry Repeat CXR in the am If O2 sat <93% start hydroxychoroquine Continue COVID isolation precautions per [facility] protocol Check serial Ferritin, LDH, D-Dimer, CRP every 48 hour Continue ceftriaxone 2 gm IV q day and azithromycin Will follow Constance Hu MD Infectious Diseases Regulatory Compliance Officer [facility] ([facility]) M [phone] O [phone] Subjective Date of service: 09/03/19 Principal diagnosis: SVT Interval history: No fever today better on NC O 2 2L PUI?: Yes COVID19: Pending Objective - Exam Narrative Exam: Exam performed in conjunction with nursings staff due to lack of PPE General appearance: Alert in NAD Eyes: limited due to lack of PPE HENT: Atraumatic; oropharynx limited due to lack of PPE Lungs: Coarse breath sounds bilaterally CV: RRR Abdomen: limited due to lack of PPE Extremities: limited due to lack of PPE Skin: No rash. Psych: Appropriate affect, alert and oriented to person, place and time. Neuro: alert and oriented x 3. Moving all extermities - Constitutional Vitals: Vital Signs Temp Pulse Resp BP Pulse Ox 99.5 F 88 20 116/66 92 09/03/19 15:30 09/03/19 15:30 09/03/19 15:30 09/03/19 15:30 09/03/19 18:00 Temperature -Last 24 Hours Temperature 99.5 F Temperature 98.8 F Temperature 99.9 F Temperature 101.6 F - Labs CBC & Chem 7: 09/03/19 10:20 09/03/19 10:20 Labs: Abnormal lab results 09/03/19 09/03/19 09/03/19 Range/Units 09:20 10:20 10:20 Hgb 14.7 H (10.1-14.3) gm/dl MCH 33 H (28-32) pg MCHC 35 H (30-34) % Plt Count 121 L (140-440) K/mm3 Lymph # 0.7 L (1.2-5.4) K/mm3 Seg Neutrophils % 77.4 H (40.0-70.0) % Sodium 133 L (137-145) mmol/L Potassium 3.5 L (3.6-5.0) mmol/L Chloride 96.8 L (98-107) mmol/L Carbon Dioxide 21 L (22-30) mmol/L Glucose 118 H (65-100) mg/dL POC Glucose 119 H (70-105)
[2019-09-03] MEDS: AMITRIPTYLINE 25 MG TAB PO SCH (22:07)
[2019-09-03] MEDS: ACETAMINOPHEN 325 MG TAB PO PRN (22:28)
[2019-09-04] MEDS: SODIUM CHLORIDE 0.9% 1000 ML 1,000 ML IV SCH ×2 (04:54→22:02)
[2019-09-04 05:41] LABS: Hematocrit 45.4 % (30.3-42.9); Hemoglobin 15.3 gm/dl (10.1-14.3); Mean Corpuscular HGB Conc 34 % (30-34); Mean Corpuscular Volume 97 fl (79-97); Platelet Count 142 K/mm3 (140-440); Red Blood Count 4.66 M/mm3 (3.65-5.03); Red Cell Distribution Width 15.2 % (13.2-15.2)
[2019-09-04 06:10] LABS: BUN/Creatinine Ratio 13; Blood Urea Nitrogen 10 mg/dL (7-17); Calcium 8.9 mg/dL (8.4-10.2); Hemolysis Index 4
--- NOTE | 2019-09-04 08:50 | Progress Note ---
Assessment and Plan Assessment and plan: Patient is a 69 yo woman with a history of tobacco dependency, OA, SVT, hypertension, seizure disorder and DM type 2 who presented to [facility] ED on 09/02/19 with SOB and cough. Per ED documentation, EMS found HR >200, SVT, SBP 240 mmHg and treated with Amiodarone and Adenosine. * pCXR: Mild bilateral interstitial disease * NM perfusion lung scan (v/q not available) Impression: Abnormal perfusion scan most likely on the basis of chronic interstitial fibrosis but small PE could produce these findings (no CTA due Ki and lack IV access placement) * TTE Conclusions: mild concentric LVH, est EF 35-40%, abnormal diastolic filling c/w impaired relaxation, RVSF mildly reduced, technically difficult Severe Sespis due to pneumonia: treat with IV abx Bilateral pneumonia most likely COVID 19 related: treat with rocephin, azithromycin, ID following Acute hypoxic respiratory failure: continue O2 supplementation SVT: consulted cardiology, input noted +COVID 19: ID following, ordered procalitonin and prone position KI, suspected vasomotor nephropathy, poa, resolved HYpokalemia: replete and monitor closely Tobacco dependency: nurses' association counselor on stopping. Chronic Combined heart failure: Cardiology following DM type 2: SSI Seizure D/O: continue Depakote DVT ppx sq lovenox full code 09/04/19: First day with patient, he is COVID 19 positive. D/W ID will start protocol. History Interval history: Patient was seen and examined. Follow-up on current diagnosis PNA and PUI for COVID 19. Overnight uneventful as no events directly reported to me. Patient denies any chest pain, or severe headaches. Imaging, nursing note, chart, labs and old chart reviewed. Discussed with patient. PUI?: Yes COVID19: Positive Hospitalist Physical - Physical exam Narrative exam: Gen: WDWN, NAD, Awake, Alert, Orientated HEENT: NCAT, EOMI, PERRL, OP Clear Neck: supple, no adenopathy, no thyromegaly, no JVD CVS/Heart: RRR, normal S1S2, pulses present bilaterally Chest/Lungs: diminished bs bilateral Symmetrical chest expansion, good air entry bilaterally GI/Abdomen: soft, NTND, good bowel sounds, no guarding or rebound /Bladder: no suprapubic tenderness, no CVA or paraspinal tenderness Extermity/Skin: no c/c/e, no obvious rash MSK: FROM x 4 Neuro: CN 2-12 grossly intact, no new focal deficits Psych: calm - Constitutional Vitals: Temp Pulse Resp BP Pulse Ox 98.4 F 100 H 20 146/86 95 09/04/19 05:36 09/04/19 05:36 09/04/19 05:36 09/04/19 05:36 09/04/19 05:36 Results - Labs CBC & Chem 7: 09/04/19 04:36 09/04/19 04:36 Labs: Laboratory Last Values WBC 5.3 K/mm3 (4.5-11.0) 09/04/19 04:36 RBC 4.66 M/mm3 (3.65-5.03) 09/04/19 04:36 Hgb 15.3 gm/dl (10.1-14.3) H 09/04/19 04:36 Hct 45.4 % (30.3-42.9) H 09/04/19 04:36 MCV 97 fl (79-97) 09/04/19 04:36 MCH 33 pg (28-32) H 09/04/19 04:36 MCHC 34 % (30-34) 09/04/19 04:36 RDW 15.2 % (13.2-15.2) 09/04/19 04:36 Plt Count 142 K/mm3 (140-440) 09/04/19 04:36 Lymph % (Auto) 16.2 % (13.4-35.0) 09/03/19 10:20 [place] % (Auto) 5.6 % (0.0-7.3) 09/03/19 10:20 Eos % (Auto) 0.0 % (0.0-4.3) 09/03/19 10:20 Baso % (Auto) 0.8 % (0.0-1.8) 09/03/19 10:20 Lymph # 0.7 K/mm3 (1.2-5.4) L 09/03/19 10:20 [place] # 0.3 K/mm3 (0.0-0.8) 09/03/19 10:20 Eos # 0.0 K/mm3 (0.0-0.4) 09/03/19 10:20 Baso # 0.0 K/mm3 (0.0-0.1) 09/03/19 10:20 Seg Neutrophils % 77.4 % (40.0-70.0) H 09/03/19 10:20 Seg Neutrophils # 3.6 K/mm3 (1.8-7.7) 09/03/19 10:20 PT 13.8 Sec. (12.2-14.9) 09/01/19 22:42 INR 1.05 (0.87-1.13) 09/01/19 22:42 APTT 25.7 Sec. (24.2-36.6) 09/01/19 22:42 D-Dimer 556.48 ng/mlDDU (0-234) H 09/04/19 04:36 Sodium 136 mmol/L (137-145) L 09/04/19 04:36 Potassium 3.3 mmol/L (3.6-5.0) L 09/04/19 04:36 Chloride 97.2 mmol/L (98-107) L 09/04/19 04:36 Carbon Dioxide 22 mmol/L (22-30) 09/04/19 04:36 Anion Gap 20 mmol/L 09/04/19 04:36 BUN 10 mg/dL (7-17) 09/04/19 04:36 Creatinine 0.8 mg/dL (0.7-1.2) 09/04/19 04:36 Estimated GFR > 60 ml/min 09/04/19 04:36 BUN/Creatinine Ratio 13 % 09/04/19 04:36 Glucose 89 mg/dL (65-100) 09/04/19 04:36 POC Glucose 119 (70-105) H 09/03/19 09:20 Calcium 8.9 mg/dL (8.4-10.2) 09/04/19 04:36 Magnesium 2.10 mg/dL (1.7-2.3) 09/02/19 13:51 Ferritin 753.3 ng/mL (13.0-400.0) H 09/04/19 04:36 Total Bilirubin 0.50 mg/dL (0.1-1.2) 09/01/19 22:42 AST 18 units/L (5-40) 09/01/19 22:42 ALT 8 units/L (7-56) 09/01/19 22:42 Alkaline Phosphatase 72 units/L (35-129) 09/01/19 22:42 Lactate Dehydrogenase 385 units/L (91-180) H 09/04/19 04:36 Total Creatine Kinase 68 units/L (30-135) 09/02/19 08:24 CK-MB (CK-2) 3.1 ng/mL (0.0-4.0) 09/02/19 08:24 CK-MB (CK-2) Rel Index 4.5 (0-4) H 09/02/19 08:24 Troponin T 0.047 ng/mL (0.00-0.029) H D 09/02/19 08:24 C-Reactive Protein 11.10 mg/dL (0.00-1.30) H 09/04/19 04:36 NT-Pro-B Natriuret Pep 532.1 pg/mL (0-900) 09/01/19 22:42 Total Protein 7.2 g/dL (6.3-8.2) 09/01/19 22:42 Albumin 3.2 g/dL (3.9-5) L 09/01/19 22:42 Albumin/Globulin Ratio 0.8 % 09/01/19 22:42 Triglycerides 147 mg/dL (2-149) 09/01/19 22:42 Cholesterol 190 mg/dL (50-199) 09/01/19 22:42 LDL Cholesterol Direct 125 mg/dL (50-130) 09/01/19 22:42 HDL Cholesterol 32 mg/dL (40-59) L 09/01/19 22:42 Cholesterol/HDL Ratio 5.93 % 09/01/19 22:42 TSH 0.868 mlU/mL (0.270-4.200) 09/02/19 13:51 Free T4 1.04 ng/dL (0.76-1.46) 09/02/19 13:51 Influenza A (Rapid) Negative (Negative) 09/02/19 02:36 Influenza B (Rapid) Negative (Negative) 09/02/19 02:36 Miscellaneous Test See scanned result 09/02/19 Unknown - Diagnostic Impressions Diagnostic Impressions: Echocardiogram 09/02/19 02:58 Transthoracic Echocardiogram Indication: SVT BP: 116/58 HR: 89 Conclusions *Mild concentric left ventricular hypertrophy is observed. *Global left ventricular systolic function is moderately decreased. *The estimated ejection fraction is 35-40%. *There is no pericardial effusion. Findings Procedure Info: The study quality is technically difficult. Left Ventricle: The left ventricular chamber size is normal. Mild concentric left ventricular hypertrophy is observed. Global left ventricular systolic function is moderately decreased. The estimated ejection fraction is 35-40%. Abnormal left ventricular diastolic filling is observed, consistent with impaired relaxation. Left Atrium: The left atrial chamber size is normal. Right Ventricle: The right ventricular cavity size is normal. The right ventricular global systolic function is mildly reduced. Right Atrium: The right atrial cavity size is normal. Aortic Valve: Mild aortic leaflet calcification is visualized. Mitral Valve: The mitral valve leaflets are mildly thickened. There is trace of mitral regurgitation. Tricuspid Valve: The tricuspid valve leaflets are normal. Pulmonic Valve: The pulmonic valve is not well visualized. Pericardium: There is no pericardial effusion. Aorta: The aorta appears normal. Venous: The inferior vena cava appears normal. Measurements Chambers 2D Name Value Normal Range IVSd (2D) 1.17 cm (0.6 - 1.1) LVPWd (2D) 1.16 cm (0.6 - 1.1) LVIDd (2D) 4.74 cm (3.7 - 5.6) LVIDs (2D) 3.87 cm (2 - 3.8) LV FS (2D) 18.41 % - EF Teichholz (2D) 38.12 % - Ao root diameter (2D) 2.89 cm (2 - 3.7) Volumes/Mass Name Value Normal Range LA ESV SP 4CH (A/L) 29.66 ml - LA ESV SP 2CH (A/L) 42.5 ml - LA ESV BP (A/L) 38.26 ml - LA ESV BP (A/L) index 18.22 ml/m2 - LA ESV SP 4CH (MOD) 28.22 ml - LA ESV SP 2CH (MOD) 40.85 ml - LA ESV BP (MOD) 36.54 ml - LA ESV BP (MOD) index 17.4 ml/m2 - LV EDV SP 4CH (MOD) 66.87 ml - LV ESV SP 4CH (MOD) 50.83 ml - EF SP 4CH (MOD) 23.99 % - LV EDV SP 2CH (MOD) 83.49 ml - LV ESV SP 2CH (MOD) 51.79 ml - EF SP 2CH (MOD) 37.98 % - LV EDV BP 80.05 ml - LV ESV BP 52.53 ml - BP EF (MOD) 34.38 % - Diastolic/Systolic Function Name Value Normal Range MV E-wave Vmax 0.68 m/sec - MV deceleration time 223.11 msec - MV A-wave Vmax 1.06 m/sec - MV E:A ratio 0.64 ratio - Aortic Valve Name Value Normal Range AV Vmax 1.31 m/sec - AV VTI 22.93 cm - AV peak gradient 6.86 mmHg - AV mean gradient 3.78 mmHg - LVOT diameter 2.06 cm - LVOT Vmax 0.8 m/sec - LVOT VTI 16.35 cm - LVOT peak gradient 2.57 mmHg - LVOT mean gradient 1.4 mmHg - SV LVOT 54.25 ml - [place] (continuity Vmax) 2.03 cm2 - [place] (continuity VTI) 2.37 cm2 - Mitral Valve Name Value Normal Range MR Vmax 3.22 m/sec - [place]/IV: Voiding Method External Female Catheter IV Catheter Type [Left Hand] INT / Saline Lock Active Medications - Current Medications Current Medications: Generic Name Dose Route Start Last Admin Trade Name Freq PRN Reason Stop Dose Admin Acetaminophen 650 mg 09/02/19 02:54 09/03/19 22:28 Tylenol PO 650 mg Q4H PRN Administration Pain MILD(1-3)/Fever >100.5/NÚÑEZ Amitriptyline HCl 25 mg 09/02/19 22:00 09/03/19 22:07 Elavil PO 25 mg QHS EYAD Administration Azithromycin 250 mg 09/03/19 10:00 09/03/19 09:04 Zithromax PO 250 mg QDAY EYAD Administration Dextrose 0 ml 09/02/19 02:54 D50w (25gm) Syringe IV Q30MIN PRN Hypoglycemia Protocol Divalproex Sodium 250 mg 09/02/19 10:00 09/03/19 22:07 Depakote Er PO 250 mg BID EYAD Administration Enoxaparin Sodium 40 mg 09/02/19 10:00 09/03/19 09:03 Enoxaparin SUB-Q 40 mg QDAY EYAD Administration Sodium Chloride 1,000 mls @ 75 mls/hr 09/02/19 03:00 09/04/19 04:54 Nacl 0.9% 1000 Ml IV 75 mls/hr DIRECT EYAD Administration Ceftriaxone Sodium 2 gm in 100 mls @ 200 mls/hr 09/02/19 21:00 09/03/19 09:03 Rocephin/Ns 2 Gm/100 Ml IV 200 mls/hr Q24HR EYAD Administration Protocol Linagliptin 5 mg 09/02/19 10:00 09/03/19 09:10 Tradjenta PO 5 mg QDAY EYAD Administration Lisinopril 2.5 mg 09/02/19 10:00 09/03/19 09:07 Zestril PO 2.5 mg QDAY EYAD Administration Metoprolol Tartrate 25 mg 09/02/19 22:00 09/03/19 22:08 Metoprolol PO 25 mg BID EYAD Administration Ondansetron HCl 4 mg 09/02/19 02:54 Zofran IV Q8H PRN Nausea And Vomiting Sodium Chloride 10 ml 09/02/19 10:00 09/03/19 22:07 Sodium Chloride Flush Syringe 10 Ml IV 10 ml BID EYAD Administration Sodium Chloride 10 ml 09/02/19 02:54 Sodium Chloride Flush Syringe 10 Ml IV PRN PRN LINE FLUSH
[2019-09-04] MEDS: cefTRIAXone/NS 2 GM/100 ML 2 GM/100 ML BAG IV SCH (09:25)
[2019-09-04] MEDS: LISINOPRIL 5 MG TAB PO SCH (09:26)
[2019-09-04] MEDS: LINAGLIPTIN 5 MG TAB PO SCH (09:28)
[2019-09-04] MEDS: DIVALPROEX ER 250 MG TAB PO SCH (09:28)
[2019-09-04] MEDS: AZITHROMYCIN 250 MG TAB PO SCH (09:28)
[2019-09-04] MEDS: METOPROLOL TARTRATE 25 MG TAB PO SCH ×2 (09:29→22:01)
[2019-09-04] MEDS: ENOXAPARIN 40 MG/0.4 ML INJ SUB-Q SCH (09:29)
--- NOTE | 2019-09-04 10:28 | Progress Note ---
Assessment and Plan Tele reviewed - in NSR with no acute events overnight. tte reviewed - EF 35-40%, mild LVH. No apparent evidence of acutely decompensated HF. Cont present cardiac management, including lopressor and lisinopril. Cont to observe on telemetry. Consider stress test once medically stabilized - could be done as OP. Management of COVID-19 per primary. The patient has been seen in conjunction with Dr. Yessy Choe who agrees with the assessment and plan of care. - Patient Problems (1) COVID-19 virus infection Current Visit: Yes Status: Acute (2) SVT (supraventricular tachycardia) Current Visit: Yes Status: Suspected (3) RBBB Current Visit: Yes Status: Acute (4) HTN (hypertension) Current Visit: Yes Status: Chronic (5) Diabetes Current Visit: Yes Status: Chronic (6) History of seizure Current Visit: Yes Status: Chronic Subjective Date of service: 09/04/19 Principal diagnosis: SVT Interval history: tele reviewed - in NSR, no acute events noted overnight. PUI?: Yes COVID19: Positive Objective Last Vital Signs Temp 98.4 F 09/04/19 05:36 Pulse 100 H 09/04/19 09:29 Resp 20 09/04/19 05:36 BP 146/86 09/04/19 09:29 Pulse Ox 95 09/04/19 05:36 - Physical Examination Narrative exam: Physical examination deferred to primary team - Labs and Meds Cardiac Enzymes 09/04/19 Range/Units 04:36 Lactate Dehydrogenase 385 H (91-180) units/L CBC 09/03/19 09/04/19 Range/Units 10:20 04:36 WBC 4.6 5.3 (4.5-11.0) K/mm3 RBC 4.41 4.66 (3.65-5.03) M/mm3 Hgb 14.7 H 15.3 H (10.1-14.3) gm/dl Hct 42.0 45.4 H (30.3-42.9) % Plt Count 121 L 142 (140-440) K/mm3 Lymph # 0.7 L (1.2-5.4) K/mm3 [place] # 0.3 (0.0-0.8) K/mm3 Eos # 0.0 (0.0-0.4) K/mm3 Baso # 0.0 (0.0-0.1) K/mm3 Comprehensive Metabolic Panel 09/03/19 09/04/19 Range/Units 10:20 04:36 Sodium 133 L 136 L (137-145) mmol/L Potassium 3.5 L 3.3 L (3.6-5.0) mmol/L Chloride 96.8 L 97.2 L (98-107) mmol/L Carbon Dioxide 21 L 22 (22-30) mmol/L BUN 13 10 (7-17) mg/dL Creatinine 0.8 0.8 (0.7-1.2) mg/dL Glucose 118 H 89 (65-100) mg/dL Calcium 8.6 8.9 (8.4-10.2) mg/dL - Imaging and Cardiology EKG: report reviewed, image reviewed Echo: pending - EKG Sinus rhythms and dysrhythmias: sinus rhythm AV and intraventricular conduction: right bundle branch block, left anterior fascicular
[2019-09-04] MEDS: INSULIN LISPRO 100 UNIT/ML SUB-Q SCH ×2 (14:55→22:00)
--- NOTE | 2019-09-04 14:56 | Progress Note ---
Assessment and Plan Culture: none Assessment: 69-year-old woman with hypertension, paroximal SVT, seizure disorder, diabetes, chronic kidney disease admitted on due to 3-day history of generalized weakness, palpitations, sweats, cough and progressive SOB: #Severe sepsis: remains with fever. Likely due to bilateral pneumonia #COVID pneumonia: COVID test positive. Risk for ARDS is mild for now. Inflammatory markers - mildly elevated - CRP 13-->11. LDH 266-->385. Ferritin 711-->753. Ddimer 374-->556. #Acute hypoxemia: on NC 2 L #STV #Thrombocytopenia: due to COVID? Better Recommendations: Continuos pulse oximetry and exercise oxymetry Repeat CXR in the am start hydroxychoroquine - markers up and sats 94% on 2 L Continue COVID isolation precautions per [facility] protocol Check serial Ferritin, LDH, D-Dimer, CRP every 48 hour Continue ceftriaxone 2 gm IV q day Stop azithromycin Will follow Constance Hu MD Infectious Diseases Supply Chain Engineer [facility] ([facility]) M [phone] O [phone] Subjective Date of service: 09/04/19 Principal diagnosis: SVT Interval history: Feels better temp 101.2 on NC O 2 2L PUI?: Yes COVID19: Positive Objective - Exam Narrative Exam: Exam performed in conjunction with nursings staff due to lack of PPE General appearance: Alert in NAD Eyes: limited due to lack of PPE HENT: Atraumatic; oropharynx limited due to lack of PPE Lungs: Coarse breath sounds bilaterally CV: RRR Abdomen: limited due to lack of PPE Extremities: limited due to lack of PPE Skin: No rash. Psych: Appropriate affect, alert and oriented to person, place and time. Neuro: alert and oriented x 3. Moving all extermities - Constitutional Vitals: Vital Signs Temp Pulse Resp BP Pulse Ox 98.8 F 92 H 22 125/79 94 09/04/19 11:45 09/04/19 11:45 09/04/19 11:45 09/04/19 11:45 09/04/19 11:45 Temperature -Last 24 Hours Temperature 98.8 F Temperature 98.4 F Temperature 101.2 F Temperature 99.5 F - Labs CBC & Chem 7: 09/04/19 04:36 09/04/19 04:36 Labs: Abnormal lab results 09/04/19 09/04/19 09/04/19 Range/Units 04:36 04:36 04:36 Hgb 15.3 H (10.1-14.3) gm/dl Hct 45.4 H (30.3-42.9) % MCH 33 H (28-32) pg D-Dimer 556.48 H (0-234) ng/mlDDU Sodium 136 L (137-145) mmol/L Potassium 3.3 L (3.6-5.0) mmol/L Chloride 97.2 L (98-107) mmol/L Ferritin (13.0-400.0) ng/mL Lactate Dehydrogenase 385 H (91-180) units/L C-Reactive Protein 11.10 H (0.00-1.30) mg/dL 09/04/19 Range/Units 04:36 Hgb (10.1-14.3) gm/dl Hct (30.3-42.9) % MCH (28-32) pg D-Dimer (0-234) ng/mlDDU Sodium (137-145) mmol/L Potassium (3.6-5.0) mmol/L Chloride (98-107) mmol/L Ferritin 753.3 H (13.0-400.0) ng/mL Lactate Dehydrogenase (91-180) units/L C-Reactive Protein (0.00-1.30) mg/dL
[2019-09-04] MEDS ORDERED: HYDROXYCHLOROQUINE 200 MG TAB PO SCH (14:58)
[2019-09-04] MEDS ORDERED: POTASSIUM CHLORIDE ER 20 MEQ TAB PO ONE (15:21)
[2019-09-04] MEDS: DIVALPROEX DR 250 MG TAB PO SCH (22:01)
[2019-09-04] MEDS: AMITRIPTYLINE 25 MG TAB PO SCH (22:01)
[2019-09-05] MEDS: cefTRIAXone/NS 2 GM/100 ML 2 GM/100 ML BAG IV SCH (09:37)
[2019-09-05] MEDS: LINAGLIPTIN 5 MG TAB PO SCH (09:37)
[2019-09-05] MEDS: DIVALPROEX DR 250 MG TAB PO SCH ×2 (09:37→22:00)
[2019-09-05] MEDS: METOPROLOL TARTRATE 25 MG TAB PO SCH ×2 (09:38→22:00)
[2019-09-05] MEDS: ENOXAPARIN 40 MG/0.4 ML INJ SUB-Q SCH (09:38)
[2019-09-05] MEDS: HYDROXYCHLOROQUINE 200 MG TAB PO SCH ×2 (09:38→21:59)
[2019-09-05] MEDS: LISINOPRIL 5 MG TAB PO SCH (09:39)
--- NOTE | 2019-09-05 11:08 | Progress Note ---
Assessment and Plan Tele reviewed - in NSR with no acute events overnight. tte reviewed - EF 35-40%, mild LVH. No apparent evidence of acutely decompensated HF. Cont present cardiac management, including lopressor and lisinopril. Cont to observe on telemetry. Consider stress test once medically stabilized - could be done as OP. Management of COVID-19 per primary. Nothing further to add from cardiac perspective at this time. Will sign off. Recommend pt follow up in our office with Dr. Yessy Choe within 1 month of discharge ([phone]). The patient has been seen in conjunction with Dr. Yessy Choe who agrees with the assessment and plan of care. - Patient Problems (1) COVID-19 virus infection Current Visit: Yes Status: Acute (2) SVT (supraventricular tachycardia) Current Visit: Yes Status: Suspected (3) RBBB Current Visit: Yes Status: Acute (4) HTN (hypertension) Current Visit: Yes Status: Chronic (5) Diabetes Current Visit: Yes Status: Chronic (6) History of seizure Current Visit: Yes Status: Chronic Subjective Date of service: 09/05/19 Principal diagnosis: SVT Interval history: tele reviewed - in NSR, no acute events noted overnight. PUI?: Yes COVID19: Positive Objective Last Vital Signs Temp 99.9 F H 09/05/19 04:10 Pulse 104 H 09/05/19 09:39 Resp 24 09/05/19 04:10 BP 139/72 09/05/19 09:39 Pulse Ox 90 09/05/19 04:10 - Physical Examination Narrative exam: Physical examination deferred to primary team - Imaging and Cardiology EKG: report reviewed, image reviewed Echo: pending - EKG Sinus rhythms and dysrhythmias: sinus rhythm AV and intraventricular conduction: right bundle branch block, left anterior fascicular
[2019-09-05] MEDS: ZINC SULFATE 220 MG CAP PO SCH (12:00)
--- NOTE | 2019-09-05 16:34 | Progress Note ---
Assessment and Plan Culture: none Assessment: 69-year-old woman with hypertension, paroximal SVT, seizure disorder, diabetes, chronic kidney disease admitted on due to 3-day history of generalized weakness, palpitations, sweats, cough and progressive SOB: #Severe sepsis: remains with fever. Likely due to bilateral pneumonia #COVID pneumonia: COVID test positive. Risk for ARDS is mild for now. Inflammatory markers - mildly elevated - CRP 13-->11. LDH 266-->385. Ferritin 711-->753. Ddimer 374-->556. MARKERS SLIGHTLY WORSENING #Acute hypoxemia: on NC 2 L now on 3L #STV #Thrombocytopenia: due to COVID? Better Recommendations: Close monitor - may progress to ARDS Continuos pulse oximetry and exercise oxymetry Repeat CXR Continue hydroxychoroquine and zinc Consider prophylactic anticoagulation Continue COVID isolation precautions per [facility] protocol Check serial Ferritin, LDH, D-Dimer, CRP every 48 hour Continue ceftriaxone 2 gm IV q day Will follow Constance Hu MD Infectious Diseases Sales Agent Insurance [facility] ([facility]) M [phone] O [phone] Subjective Date of service: 09/05/19 Principal diagnosis: SVT Interval history: Feels better fever improving on NC O2 3L PUI?: Yes COVID19: Positive Objective - Exam Narrative Exam: Exam performed in conjunction with nursings staff due to lack of PPE General appearance: Alert in NAD Eyes: limited due to lack of PPE HENT: Atraumatic; oropharynx limited due to lack of PPE Lungs: Coarse breath sounds bilaterally CV: RRR Abdomen: limited due to lack of PPE Extremities: limited due to lack of PPE Skin: No rash. Psych: Appropriate affect, alert and oriented to person, place and time. Neuro: alert and oriented x 3. Moving all extermities - Constitutional Vitals: Vital Signs Temp Pulse Resp BP Pulse Ox 98.7 F 89 20 115/65 92 09/05/19 12:09 09/05/19 12:09 09/05/19 12:09 09/05/19 12:09 09/05/19 12:09 Temperature -Last 24 Hours Temperature 98.7 F Temperature 99.9 F Temperature 99 F Temperature 99.0 F Temperature 98.9 F - Labs CBC & Chem 7: 09/04/19 04:36 09/04/19 04:36
[2019-09-05] MEDS ORDERED: POTASSIUM CHLORIDE ER 20 MEQ TAB PO NR (16:39)
--- NOTE | 2019-09-05 16:43 | Progress Note ---
Assessment and Plan Assessment and plan: Patient is a 69 yo woman with a history of tobacco dependency, OA, SVT, hypertension, seizure disorder and DM type 2 who presented to [facility] ED on 09/02/19 with SOB and cough. Per ED documentation, EMS found HR >200, SVT, SBP 240 mmHg and treated with Amiodarone and Adenosine. * pCXR: Mild bilateral interstitial disease * NM perfusion lung scan (v/q not available) Impression: Abnormal perfusion scan most likely on the basis of chronic interstitial fibrosis but small PE could produce these findings (no CTA due Ki and lack IV access placement) * TTE Conclusions: mild concentric LVH, est EF 35-40%, abnormal diastolic filling c/w impaired relaxation, RVSF mildly reduced, technically difficult Severe Sespis due to pneumonia: treat with IV abx Bilateral pneumonia most likely COVID 19 related: treat with rocephin, azithromycin, ID following Acute hypoxic respiratory failure: continue O2 supplementation SVT: consulted cardiology, input noted +COVID 19: ID following, ordered procalitonin and prone position KI, suspected vasomotor nephropathy, poa, resolved HYpokalemia: replete and monitor closely Tobacco dependency: deputy general counsel on stopping. Chronic Combined heart failure: Cardiology following DM type 2: SSI Seizure D/O: continue Depakote DVT ppx sq lovenox full code 09/04/19: First day with patient, he is COVID 19 positive. D/W ID will start protocol. 09/05/19: still on 3liters O2, 93% o2 sat, holding steady, Inflammatory markers slightly increase, will repeat in 48h History Interval history: Patient was seen and examined. Follow-up on current diagnosis PNA and PUI for COVID 19. Overnight uneventful as no events directly reported to me. Patient denies any chest pain, or severe headaches. Imaging, nursing note, chart, labs and old chart reviewed. Discussed with patient. PUI?: Yes COVID19: Positive Hospitalist Physical - Physical exam Narrative exam: Gen: WDWN, NAD, Awake, Alert, Orientated HEENT: NCAT, EOMI, PERRL, OP Clear Neck: supple, no adenopathy, no thyromegaly, no JVD CVS/Heart: RRR, normal S1S2, pulses present bilaterally Chest/Lungs: diminished bs bilateral Symmetrical chest expansion, good air entry bilaterally GI/Abdomen: soft, NTND, good bowel sounds, no guarding or rebound /Bladder: no suprapubic tenderness, no CVA or paraspinal tenderness Extermity/Skin: no c/c/e, no obvious rash MSK: FROM x 4 Neuro: CN 2-12 grossly intact, no new focal deficits Psych: calm - Constitutional Vitals: Temp Pulse Resp BP Pulse Ox 98.7 F 89 20 115/65 92 09/05/19 12:09 09/05/19 12:09 09/05/19 12:09 09/05/19 12:09 09/05/19 12:09 Results - Labs CBC & Chem 7: 09/04/19 04:36 09/04/19 04:36 Labs: Laboratory Last Values WBC 5.3 K/mm3 (4.5-11.0) 09/04/19 04:36 RBC 4.66 M/mm3 (3.65-5.03) 09/04/19 04:36 Hgb 15.3 gm/dl (10.1-14.3) H 09/04/19 04:36 Hct 45.4 % (30.3-42.9) H 09/04/19 04:36 MCV 97 fl (79-97) 09/04/19 04:36 MCH 33 pg (28-32) H 09/04/19 04:36 MCHC 34 % (30-34) 09/04/19 04:36 RDW 15.2 % (13.2-15.2) 09/04/19 04:36 Plt Count 142 K/mm3 (140-440) 09/04/19 04:36 Lymph % (Auto) 16.2 % (13.4-35.0) 09/03/19 10:20 Cataño % (Auto) 5.6 % (0.0-7.3) 09/03/19 10:20 Eos % (Auto) 0.0 % (0.0-4.3) 09/03/19 10:20 Baso % (Auto) 0.8 % (0.0-1.8) 09/03/19 10:20 Lymph # 0.7 K/mm3 (1.2-5.4) L 09/03/19 10:20 Cataño # 0.3 K/mm3 (0.0-0.8) 09/03/19 10:20 Eos # 0.0 K/mm3 (0.0-0.4) 09/03/19 10:20 Baso # 0.0 K/mm3 (0.0-0.1) 09/03/19 10:20 Seg Neutrophils % 77.4 % (40.0-70.0) H 09/03/19 10:20 Seg Neutrophils # 3.6 K/mm3 (1.8-7.7) 09/03/19 10:20 PT 13.8 Sec. (12.2-14.9) 09/01/19 22:42 INR 1.05 (0.87-1.13) 09/01/19 22:42 APTT 25.7 Sec. (24.2-36.6) 09/01/19 22:42 D-Dimer 556.48 ng/mlDDU (0-234) H 09/04/19 04:36 Sodium 136 mmol/L (137-145) L 09/04/19 04:36 Potassium 3.3 mmol/L (3.6-5.0) L 09/04/19 04:36 Chloride 97.2 mmol/L (98-107) L 09/04/19 04:36 Carbon Dioxide 22 mmol/L (22-30) 09/04/19 04:36 Anion Gap 20 mmol/L 09/04/19 04:36 BUN 10 mg/dL (7-17) 09/04/19 04:36 Creatinine 0.8 mg/dL (0.7-1.2) 09/04/19 04:36 Estimated GFR > 60 ml/min 09/04/19 04:36 BUN/Creatinine Ratio 13 % 09/04/19 04:36 Glucose 89 mg/dL (65-100) 09/04/19 04:36 POC Glucose 83 (70-105) 09/04/19 21:50 Calcium 8.9 mg/dL (8.4-10.2) 09/04/19 04:36 Magnesium 2.10 mg/dL (1.7-2.3) 09/02/19 13:51 Ferritin 753.3 ng/mL (13.0-400.0) H 09/04/19 04:36 Total Bilirubin 0.50 mg/dL (0.1-1.2) 09/01/19 22:42 AST 18 units/L (5-40) 09/01/19 22:42 ALT 8 units/L (7-56) 09/01/19 22:42 Alkaline Phosphatase 72 units/L (35-129) 09/01/19 22:42 Lactate Dehydrogenase 385 units/L (91-180) H 09/04/19 04:36 Total Creatine Kinase 68 units/L (30-135) 09/02/19 08:24 CK-MB (CK-2) 3.1 ng/mL (0.0-4.0) 09/02/19 08:24 CK-MB (CK-2) Rel Index 4.5 (0-4) H 09/02/19 08:24 Troponin T 0.047 ng/mL (0.00-0.029) H D 09/02/19 08:24 C-Reactive Protein 11.10 mg/dL (0.00-1.30) H 09/04/19 04:36 NT-Pro-B Natriuret Pep 532.1 pg/mL (0-900) 09/01/19 22:42 Total Protein 7.2 g/dL (6.3-8.2) 09/01/19 22:42 Albumin 3.2 g/dL (3.9-5) L 09/01/19 22:42 Albumin/Globulin Ratio 0.8 % 09/01/19 22:42 Triglycerides 147 mg/dL (2-149) 09/01/19 22:42 Cholesterol 190 mg/dL (50-199) 09/01/19 22:42 LDL Cholesterol Direct 125 mg/dL (50-130) 09/01/19 22:42 HDL Cholesterol 32 mg/dL (40-59) L 09/01/19 22:42 Cholesterol/HDL Ratio 5.93 % 09/01/19 22:42 Procalcitonin < 0.05 ng/mL (<0.15) 09/04/19 04:36 TSH 0.868 mlU/mL (0.270-4.200) 09/02/19 13:51 Free T4 1.04 ng/dL (0.76-1.46) 09/02/19 13:51 Influenza A (Rapid) Negative (Negative) 09/02/19 02:36 Influenza B (Rapid) Negative (Negative) 09/02/19 02:36 Miscellaneous Test See scanned result 09/02/19 Unknown - Diagnostic Impressions Diagnostic Impressions: Echocardiogram 09/02/19 02:58 Transthoracic Echocardiogram Indication: SVT BP: 116/58 HR: 89 Conclusions *Mild concentric left ventricular hypertrophy is observed. *Global left ventricular systolic function is moderately decreased. *The estimated ejection fraction is 35-40%. *There is no pericardial effusion. Findings Procedure Info: The study quality is technically difficult. Left Ventricle: The left ventricular chamber size is normal. Mild concentric left ventricular hypertrophy is observed. Global left ventricular systolic function is moderately decreased. The estimated ejection fraction is 35-40%. Abnormal left ventricular diastolic filling is observed, consistent with impaired relaxation. Left Atrium: The left atrial chamber size is normal. Right Ventricle: The right ventricular cavity size is normal. The right ventricular global systolic function is mildly reduced. Right Atrium: The right atrial cavity size is normal. Aortic Valve: Mild aortic leaflet calcification is visualized. Mitral Valve: The mitral valve leaflets are mildly thickened. There is trace of mitral regurgitation. Tricuspid Valve: The tricuspid valve leaflets are normal. Pulmonic Valve: The pulmonic valve is not well visualized. Pericardium: There is no pericardial effusion. Aorta: The aorta appears normal. Venous: The inferior vena cava appears normal. Measurements Chambers 2D Name Value Normal Range IVSd (2D) 1.17 cm (0.6 - 1.1) LVPWd (2D) 1.16 cm (0.6 - 1.1) LVIDd (2D) 4.74 cm (3.7 - 5.6) LVIDs (2D) 3.87 cm (2 - 3.8) LV FS (2D) 18.41 % - EF Teichholz (2D) 38.12 % - Ao root diameter (2D) 2.89 cm (2 - 3.7) Volumes/Mass Name Value Normal Range LA ESV SP 4CH (A/L) 29.66 ml - LA ESV SP 2CH (A/L) 42.5 ml - LA ESV BP (A/L) 38.26 ml - LA ESV BP (A/L) index 18.22 ml/m2 - LA ESV SP 4CH (MOD) 28.22 ml - LA ESV SP 2CH (MOD) 40.85 ml - LA ESV BP (MOD) 36.54 ml - LA ESV BP (MOD) index 17.4 ml/m2 - LV EDV SP 4CH (MOD) 66.87 ml - LV ESV SP 4CH (MOD) 50.83 ml - EF SP 4CH (MOD) 23.99 % - LV EDV SP 2CH (MOD) 83.49 ml - LV ESV SP 2CH (MOD) 51.79 ml - EF SP 2CH (MOD) 37.98 % - LV EDV BP 80.05 ml - LV ESV BP 52.53 ml - BP EF (MOD) 34.38 % - Diastolic/Systolic Function Name Value Normal Range MV E-wave Vmax 0.68 m/sec - MV deceleration time 223.11 msec - MV A-wave Vmax 1.06 m/sec - MV E:A ratio 0.64 ratio - Aortic Valve Name Value Normal Range AV Vmax 1.31 m/sec - AV VTI 22.93 cm - AV peak gradient 6.86 mmHg - AV mean gradient 3.78 mmHg - LVOT diameter 2.06 cm - LVOT Vmax 0.8 m/sec - LVOT VTI 16.35 cm - LVOT peak gradient 2.57 mmHg - LVOT mean gradient 1.4 mmHg - SV LVOT 54.25 ml - CARLTON (continuity Vmax) 2.03 cm2 - CARLTON (continuity VTI) 2.37 cm2 - Mitral Valve Name Value Normal Range MR Vmax 3.22 m/sec - Fountain/IV: Voiding Method Toilet IV Catheter Type [Left Hand] INT / Saline Lock Active Medications - Current Medications Current Medications: Generic Name Dose Route Start Last Admin Trade Name Freq PRN Reason Stop Dose Admin Acetaminophen 650 mg 09/02/19 02:54 09/03/19 22:28 Tylenol PO 650 mg Q4H PRN Administration Pain MILD(1-3)/Fever >100.5/NÚÑEZ Amitriptyline HCl 25 mg 09/02/19 22:00 09/04/19 22:01 Elavil PO 25 mg QHS EYAD Administration Dextrose 0 ml 09/02/19 02:54 D50w (25gm) Syringe IV Q30MIN PRN Hypoglycemia Protocol Divalproex Sodium 250 mg 09/04/19 22:00 09/05/19 09:[address] PO 250 mg BID EYAD Administration Enoxaparin Sodium 40 mg 09/02/19 10:00 09/05/19 09:38 Enoxaparin SUB-Q 40 mg QDAY EYAD Administration Hydroxychloroquine Sulfate 200 mg 09/05/19 10:00 09/05/19 09:38 Plaquenil PO 09/08/19 22:01 200 mg BID EYAD Administration Sodium Chloride 1,000 mls @ 75 mls/hr 09/02/19 03:00 09/04/19 22:02 Nacl 0.9% 1000 Ml IV 75 mls/hr DIRECT EYAD Administration Ceftriaxone Sodium 2 gm in 100 mls @ 200 mls/hr 09/02/19 21:00 09/05/19 09:37 Rocephin/Ns 2 Gm/100 Ml IV 200 mls/hr Q24HR EYAD Administration Protocol Insulin Human Lispro 0 unit 09/04/19 11:30 09/04/19 22:00 Humalog SUB-Q Not Given ACHS EYAD Protocol Linagliptin 5 mg 09/02/19 10:00 09/05/19 09:37 Tradjenta PO 5 mg QDAY EYAD Administration Lisinopril 2.5 mg 09/02/19 10:00 09/05/19 09:39 Zestril PO 2.5 mg QDAY EYAD Administration Metoprolol Tartrate 25 mg 09/02/19 22:00 09/05/19 09:38 Metoprolol PO 25 mg BID EYAD Administration Ondansetron HCl 4 mg 09/02/19 02:54 Zofran IV Q8H PRN Nausea And Vomiting Potassium Chloride 40 meq 09/05/19 16:39 K-Dur PO 09/05/19 16:40 ONCE ONE Sodium Chloride 10 ml 09/02/19 10:00 09/05/19 09:38 Sodium Chloride Flush Syringe 10 Ml IV 10 ml BID EYAD Administration Sodium Chloride 10 ml 09/02/19 02:54 Sodium Chloride Flush Syringe 10 Ml IV PRN PRN LINE FLUSH Zinc Sulfate 220 mg 09/05/19 12:00 09/05/19 12:00 Zinc Sulfate PO 09/08/19 12:01 220 mg DAILY@1200 EYAD Administration
[2019-09-05] MEDS: SODIUM CHLORIDE 0.9% 1000 ML 1,000 ML IV SCH (17:37)
--- NOTE | 2019-09-05 19:27 | XRay Report ---
CHEST 1 VIEW INDICATION / CLINICAL INFORMATION: worsening inflammatory markers for ARDS, COVID+. COMPARISON: Chest radiograph 09/01/2019 FINDINGS: SUPPORT DEVICES: None. HEART / MEDIASTINUM: No significant abnormality. LUNGS / PLEURA: Increased interstitial prominence with diffuse, symmetric distribution. No focal airs pace opacity or pleural fluid. No pneumothorax. IMPRESSION: Slight increase in the prominence of the interstitial markings in the lungs in comparison to 09/01/2019 . Heart size remains normal. Signer Name: Demario Cavanaugh MD Signed: 09/05/2019 7:23 PM Workstation Name: [id number]
[2019-09-05] MEDS: AMITRIPTYLINE 25 MG TAB PO SCH (22:00)
[2019-09-05] MEDS: INSULIN LISPRO 100 UNIT/ML SUB-Q SCH (22:00)
[2019-09-05] MEDS: ACETAMINOPHEN 325 MG TAB PO PRN (22:00)
[2019-09-06 06:15] LABS: C-Reactive Protein 17.3 mg/dL (0.00-1.30)
[2019-09-06] MEDS: LISINOPRIL 5 MG TAB PO SCH (09:48)
[2019-09-06] MEDS: ENOXAPARIN 40 MG/0.4 ML INJ SUB-Q SCH (09:48)
[2019-09-06] MEDS: METOPROLOL TARTRATE 25 MG TAB PO SCH ×2 (09:48→21:48)
[2019-09-06] MEDS: HYDROXYCHLOROQUINE 200 MG TAB PO SCH ×2 (09:48→21:48)
[2019-09-06] MEDS: SODIUM CHLORIDE 0.9% 1000 ML 1,000 ML IV SCH ×2 (09:50→21:50)
[2019-09-06] MEDS: INSULIN LISPRO 100 UNIT/ML SUB-Q SCH ×3 (09:50→17:13)
[2019-09-06] MEDS: DIVALPROEX DR 250 MG TAB PO SCH ×2 (09:50→21:48)
--- NOTE | 2019-09-06 10:19 | Progress Note ---
Assessment and Plan Culture: none Assessment: 69-year-old woman with hypertension, paroximal SVT, seizure disorder, diabetes, chronic kidney disease admitted on due to 3-day history of generalized weakness, palpitations, sweats, cough and progressive SOB: #Severe sepsis: remains with fever. Likely due to bilateral pneumonia #COVID pneumonia: COVID test positive. Risk for ARDS is mild for now. Inflammatory markers continue to worsen, trend every 48 hours. #Acute hypoxemia: on NC 2 L now on 3L #STV #Thrombocytopenia: due to COVID? Better Recommendations: Close monitor - may progress to ARDS Continuos pulse oximetry and exercise oxymetry Continue hydroxychoroquine and zinc total 5 days Consider prophylactic anticoagulation Continue COVID isolation precautions per [facility] protocol Check serial Ferritin, LDH, D-Dimer, CRP every 48 hour Continue ceftriaxone 2 gm IV q day Will follow Laya Soares MD [facility] ([facility]) M: [phone] O: [phone] F: [phone] Subjective Date of service: 09/06/19 Principal diagnosis: SVT Interval history: Afebrile with low grade temperatures. Reports some SOB with exertion. PUI?: Yes COVID19: Positive Objective - Exam Narrative Exam: Exam performed in conjunction with nursings staff due to lack of PPE General appearance: Alert in NAD Eyes: limited due to lack of PPE HENT: Atraumatic; oropharynx limited due to lack of PPE Lungs: Coarse breath sounds bilaterally CV: RRR Abdomen: limited due to lack of PPE Extremities: limited due to lack of PPE Skin: No rash. Psych: Appropriate affect, alert and oriented to person, place and time. Neuro: alert and oriented x 3. Moving all extremities - Constitutional Vitals: Vital Signs Temp Pulse Resp BP Pulse Ox 98.4 F 84 16 125/64 96 09/06/19 05:13 09/06/19 05:13 09/06/19 05:13 09/06/19 05:13 09/06/19 09:18 Temperature -Last 24 Hours Temperature 98.4 F Temperature 100.2 F Temperature 98.1 F Temperature 98.7 F - Labs CBC & Chem 7: 09/04/19 04:36 09/04/19 04:36 Labs: Abnormal lab results 09/05/19 09/06/19 09/06/19 Range/Units 21:33 05:16 05:16 D-Dimer 843.94 H (0-234) ng/mlDDU POC Glucose 118 H (70-105) Ferritin 856.2 H (13.0-400.0) ng/mL Lactate Dehydrogenase (91-180) units/L C-Reactive Protein (0.00-1.30) mg/dL 09/06/19 Range/Units 05:16 D-Dimer (0-234) ng/mlDDU POC Glucose (70-105) Ferritin (13.0-400.0) ng/mL Lactate Dehydrogenase 491 H (91-180) units/L C-Reactive Protein 17.30 H (0.00-1.30) mg/dL
[2019-09-06] MEDS: LINAGLIPTIN 5 MG TAB PO SCH (11:01)
--- NOTE | 2019-09-06 11:09 | Progress Note ---
Assessment and Plan Assessment and plan: Patient is a 69 yo woman with a history of tobacco dependency, OA, SVT, hypertension, seizure disorder and DM type 2 who presented to [facility] ED on 09/02/19 with SOB and cough. Per ED documentation, EMS found HR >200, SVT, SBP 240 mmHg and treated with Amiodarone and Adenosine. * pCXR: Mild bilateral interstitial disease * NM perfusion lung scan (v/q not available) Impression: Abnormal perfusion scan most likely on the basis of chronic interstitial fibrosis but small PE could produce these findings (no CTA due Ki and lack IV access placement) * TTE Conclusions: mild concentric LVH, est EF 35-40%, abnormal diastolic filling c/w impaired relaxation, RVSF mildly reduced, technically difficult Severe Sespis due to pneumonia: treat with IV abx Bilateral pneumonia most likely COVID 19 related: treat with rocephin, azithromycin, ID following Acute hypoxic respiratory failure: continue O2 supplementation SVT: consulted cardiology, input noted +COVID 19: ID following, ordered procalitonin and prone position KI, suspected vasomotor nephropathy, poa, resolved HYpokalemia: replete and monitor closely 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 Chronic Combined heart failure: Cardiology following DM type 2: SSI Seizure D/O: continue Depakote DVT ppx sq lovenox full code 09/04/19: First day with patient, he is COVID 19 positive. D/W ID will start protocol. 09/05/19: still on 3liters O2, 93% o2 sat, holding steady, Inflammatory markers slightly increase, will repeat in 48h 09/06/19: on 2 liters holding steady, markers going up continue to monitor for ARDS. History Interval history: Patient was seen and examined. Follow-up on current diagnosis PNA and PUI for COVID 19. Overnight uneventful as no events directly reported to me. Patient denies any chest pain, or severe headaches. Imaging, nursing note, chart, labs and old chart reviewed. Discussed with patient. PUI?: Yes COVID19: Positive Hospitalist Physical - Physical exam Narrative exam: Gen: WDWN, NAD, Awake, Alert, Orientated HEENT: NCAT, EOMI, PERRL, OP Clear Neck: supple, no adenopathy, no thyromegaly, no JVD CVS/Heart: RRR, normal S1S2, pulses present bilaterally Chest/Lungs: diminished bs bilateral Symmetrical chest expansion, good air entry bilaterally GI/Abdomen: soft, NTND, good bowel sounds, no guarding or rebound /Bladder: no suprapubic tenderness, no CVA or paraspinal tenderness Extermity/Skin: no c/c/e, no obvious rash MSK: FROM x 4 Neuro: CN 2-12 grossly intact, no new focal deficits Psych: calm - Constitutional Vitals: Temp Pulse Resp BP Pulse Ox 98.4 F 84 18 125/64 96 09/06/19 05:13 09/06/19 05:13 09/06/19 10:00 09/06/19 05:13 09/06/19 09:18 Results - Labs CBC & Chem 7: 09/04/19 04:36 09/04/19 04:36 Labs: Laboratory Last Values WBC 5.3 K/mm3 (4.5-11.0) 09/04/19 04:36 RBC 4.66 M/mm3 (3.65-5.03) 09/04/19 04:36 Hgb 15.3 gm/dl (10.1-14.3) H 09/04/19 04:36 Hct 45.4 % (30.3-42.9) H 09/04/19 04:36 MCV 97 fl (79-97) 09/04/19 04:36 MCH 33 pg (28-32) H 09/04/19 04:36 MCHC 34 % (30-34) 09/04/19 04:36 RDW 15.2 % (13.2-15.2) 09/04/19 04:36 Plt Count 142 K/mm3 (140-440) 09/04/19 04:36 Lymph % (Auto) 16.2 % (13.4-35.0) 09/03/19 10:20 Grant % (Auto) 5.6 % (0.0-7.3) 09/03/19 10:20 Eos % (Auto) 0.0 % (0.0-4.3) 09/03/19 10:20 Baso % (Auto) 0.8 % (0.0-1.8) 09/03/19 10:20 Lymph # 0.7 K/mm3 (1.2-5.4) L 09/03/19 10:20 Grant # 0.3 K/mm3 (0.0-0.8) 09/03/19 10:20 Eos # 0.0 K/mm3 (0.0-0.4) 09/03/19 10:20 Baso # 0.0 K/mm3 (0.0-0.1) 09/03/19 10:20 Seg Neutrophils % 77.4 % (40.0-70.0) H 09/03/19 10:20 Seg Neutrophils # 3.6 K/mm3 (1.8-7.7) 09/03/19 10:20 PT 13.8 Sec. (12.2-14.9) 09/01/19 22:42 INR 1.05 (0.87-1.13) 09/01/19 22:42 APTT 25.7 Sec. (24.2-36.6) 09/01/19 22:42 D-Dimer 843.94 ng/mlDDU (0-234) H 09/06/19 05:16 Sodium 136 mmol/L (137-145) L 09/04/19 04:36 Potassium 3.3 mmol/L (3.6-5.0) L 09/04/19 04:36 Chloride 97.2 mmol/L (98-107) L 09/04/19 04:36 Carbon Dioxide 22 mmol/L (22-30) 09/04/19 04:36 Anion Gap 20 mmol/L 09/04/19 04:36 BUN 10 mg/dL (7-17) 09/04/19 04:36 Creatinine 0.8 mg/dL (0.7-1.2) 09/04/19 04:36 Estimated GFR > 60 ml/min 09/04/19 04:36 BUN/Creatinine Ratio 13 % 09/04/19 04:36 Glucose 89 mg/dL (65-100) 09/04/19 04:36 POC Glucose 118 (70-105) H 09/05/19 21:33 Calcium 8.9 mg/dL (8.4-10.2) 09/04/19 04:36 Magnesium 2.10 mg/dL (1.7-2.3) 09/02/19 13:51 Ferritin 856.2 ng/mL (13.0-400.0) H 09/06/19 05:16 Total Bilirubin 0.50 mg/dL (0.1-1.2) 09/01/19 22:42 AST 18 units/L (5-40) 09/01/19 22:42 ALT 8 units/L (7-56) 09/01/19 22:42 Alkaline Phosphatase 72 units/L (35-129) 09/01/19 22:42 Lactate Dehydrogenase 491 units/L (91-180) H 09/06/19 05:16 Total Creatine Kinase 68 units/L (30-135) 09/02/19 08:24 CK-MB (CK-2) 3.1 ng/mL (0.0-4.0) 09/02/19 08:24 CK-MB (CK-2) Rel Index 4.5 (0-4) H 09/02/19 08:24 Troponin T 0.047 ng/mL (0.00-0.029) H D 09/02/19 08:24 C-Reactive Protein 17.30 mg/dL (0.00-1.30) H 09/06/19 05:16 NT-Pro-B Natriuret Pep 532.1 pg/mL (0-900) 09/01/19 22:42 Total Protein 7.2 g/dL (6.3-8.2) 09/01/19 22:42 Albumin 3.2 g/dL (3.9-5) L 09/01/19 22:42 Albumin/Globulin Ratio 0.8 % 09/01/19 22:42 Triglycerides 147 mg/dL (2-149) 09/01/19 22:42 Cholesterol 190 mg/dL (50-199) 09/01/19 22:42 LDL Cholesterol Direct 125 mg/dL (50-130) 09/01/19 22:42 HDL Cholesterol 32 mg/dL (40-59) L 09/01/19 22:42 Cholesterol/HDL Ratio 5.93 % 09/01/19 22:42 Procalcitonin < 0.05 ng/mL (<0.15) 09/04/19 04:36 TSH 0.868 mlU/mL (0.270-4.200) 09/02/19 13:51 Free T4 1.04 ng/dL (0.76-1.46) 09/02/19 13:51 Influenza A (Rapid) Negative (Negative) 09/02/19 02:36 Influenza B (Rapid) Negative (Negative) 09/02/19 02:36 Miscellaneous Test See scanned result 09/02/19 Unknown Microbiology: Microbiology 09/05/19 19:37 Peripheral/Venous Blood Culture - Preliminary Culture in Progress 09/05/19 19:35 Peripheral/Venous Blood Culture - Preliminary Culture in Progress - Diagnostic Impressions Diagnostic Impressions: Echocardiogram 09/02/19 02:58 Transthoracic Echocardiogram Indication: SVT BP: 116/58 HR: 89 Conclusions *Mild concentric left ventricular hypertrophy is observed. *Global left ventricular systolic function is moderately decreased. *The estimated ejection fraction is 35-40%. *There is no pericardial effusion. Findings Procedure Info: The study quality is technically difficult. Left Ventricle: The left ventricular chamber size is normal. Mild concentric left ventricular hypertrophy is observed. Global left ventricular systolic function is moderately decreased. The estimated ejection fraction is 35-40%. Abnormal left ventricular diastolic filling is observed, consistent with impaired relaxation. Left Atrium: The left atrial chamber size is normal. Right Ventricle: The right ventricular cavity size is normal. The right ventricular global systolic function is mildly reduced. Right Atrium: The right atrial cavity size is normal. Aortic Valve: Mild aortic leaflet calcification is visualized. Mitral Valve: The mitral valve leaflets are mildly thickened. There is trace of mitral regurgitation. Tricuspid Valve: The tricuspid valve leaflets are normal. Pulmonic Valve: The pulmonic valve is not well visualized. Pericardium: There is no pericardial effusion. Aorta: The aorta appears normal. Venous: The inferior vena cava appears normal. Measurements Chambers 2D Name Value Normal Range IVSd (2D) 1.17 cm (0.6 - 1.1) LVPWd (2D) 1.16 cm (0.6 - 1.1) LVIDd (2D) 4.74 cm (3.7 - 5.6) LVIDs (2D) 3.87 cm (2 - 3.8) LV FS (2D) 18.41 % - EF Teichholz (2D) 38.12 % - Ao root diameter (2D) 2.89 cm (2 - 3.7) Volumes/Mass Name Value Normal Range LA ESV SP 4CH (A/L) 29.66 ml - LA ESV SP 2CH (A/L) 42.5 ml - LA ESV BP (A/L) 38.26 ml - LA ESV BP (A/L) index 18.22 ml/m2 - LA ESV SP 4CH (MOD) 28.22 ml - LA ESV SP 2CH (MOD) 40.85 ml - LA ESV BP (MOD) 36.54 ml - LA ESV BP (MOD) index 17.4 ml/m2 - LV EDV SP 4CH (MOD) 66.87 ml - LV ESV SP 4CH (MOD) 50.83 ml - EF SP 4CH (MOD) 23.99 % - LV EDV SP 2CH (MOD) 83.49 ml - LV ESV SP 2CH (MOD) 51.79 ml - EF SP 2CH (MOD) 37.98 % - LV EDV BP 80.05 ml - LV ESV BP 52.53 ml - BP EF (MOD) 34.38 % - Diastolic/Systolic Function Name Value Normal Range MV E-wave Vmax 0.68 m/sec - MV deceleration time 223.11 msec - MV A-wave Vmax 1.06 m/sec - MV E:A ratio 0.64 ratio - Aortic Valve Name Value Normal Range AV Vmax 1.31 m/sec - AV VTI 22.93 cm - AV peak gradient 6.86 mmHg - AV mean gradient 3.78 mmHg - LVOT diameter 2.06 cm - LVOT Vmax 0.8 m/sec - LVOT VTI 16.35 cm - LVOT peak gradient 2.57 mmHg - LVOT mean gradient 1.4 mmHg - SV LVOT 54.25 ml - CARLTON (continuity Vmax) 2.03 cm2 - CARLTON (continuity VTI) 2.37 cm2 - Mitral Valve Name Value Normal Range MR Vmax 3.22 m/sec - Fountain/IV: Voiding Method External Female Catheter IV Catheter Type [Left Hand] Peripheral IV Active Medications - Current Medications Current Medications: Generic Name Dose Route Start Last Admin Trade Name Freq PRN Reason Stop Dose Admin Acetaminophen 650 mg 09/02/19 02:54 09/05/19 22:00 Tylenol PO 650 mg Q4H PRN Administration Pain MILD(1-3)/Fever >100.5/NÚÑEZ Amitriptyline HCl 25 mg 09/02/19 22:00 09/05/19 22:00 Elavil PO 25 mg QHS EYAD Administration Dextrose 0 ml 09/02/19 02:54 D50w (25gm) Syringe IV Q30MIN PRN Hypoglycemia Protocol Divalproex Sodium 250 mg 09/04/19 22:00 09/06/19 09:[address] PO 250 mg BID EYAD Administration Enoxaparin Sodium 40 mg 09/02/19 10:00 09/06/19 09:48 Enoxaparin SUB-Q 40 mg QDAY EYAD Administration Hydroxychloroquine Sulfate 200 mg 09/05/19 10:00 09/06/19 09:48 Plaquenil PO 09/08/19 22:01 200 mg BID EYAD Administration Sodium Chloride 1,000 mls @ 75 mls/hr 09/02/19 03:00 09/06/19 09:50 Nacl 0.9% 1000 Ml IV 75 mls/hr DIRECT EYAD Administration Ceftriaxone Sodium 2 gm in 100 mls @ 200 mls/hr 09/02/19 21:00 09/05/19 09:37 Rocephin/Ns 2 Gm/100 Ml IV 200 mls/hr Q24HR EYAD Administration Protocol Insulin Human Lispro 0 unit 09/04/19 11:30 09/06/19 09:50 Humalog SUB-Q Not Given ACHS EYAD Protocol Linagliptin 5 mg 09/02/19 10:00 09/06/19 11:01 Tradjenta PO Not Given QDAY EYAD Lisinopril 2.5 mg 09/02/19 10:00 09/06/19 09:48 Zestril PO 2.5 mg QDAY EYAD Administration Metoprolol Tartrate 25 mg 09/02/19 22:00 09/06/19 09:48 Metoprolol PO 25 mg BID EYAD Administration Ondansetron HCl 4 mg 09/02/19 02:54 Zofran IV Q8H PRN Nausea And Vomiting Sodium Chloride 10 ml 09/02/19 10:00 09/06/19 09:51 Sodium Chloride Flush Syringe 10 Ml IV 10 ml BID EYAD Administration Sodium Chloride 10 ml 09/02/19 02:54 Sodium Chloride Flush Syringe 10 Ml IV PRN PRN LINE FLUSH Zinc Sulfate 220 mg 09/05/19 12:00 09/05/19 12:00 Zinc Sulfate PO 09/08/19 12:01 220 mg DAILY@1200 EYAD Administration
[2019-09-06] MEDS: ZINC SULFATE 220 MG CAP PO SCH (12:11)
[2019-09-06] MEDS: cefTRIAXone/NS 2 GM/100 ML 2 GM/100 ML BAG IV SCH (12:11)
[2019-09-06] MEDS: AMITRIPTYLINE 25 MG TAB PO SCH (21:48)
[2019-09-06] MEDS: ACETAMINOPHEN 325 MG TAB PO PRN (21:48)
[2019-09-07] MEDS: INSULIN LISPRO 100 UNIT/ML SUB-Q SCH ×5 (05:10→21:26)
[2019-09-07 06:08] LABS: C-Reactive Protein 14.6 mg/dL (0.00-1.30)
[2019-09-07] MEDS: METOPROLOL TARTRATE 25 MG TAB PO SCH ×2 (10:09→21:28)
[2019-09-07] MEDS: ENOXAPARIN 40 MG/0.4 ML INJ SUB-Q SCH (10:09)
[2019-09-07] MEDS: cefTRIAXone/NS 2 GM/100 ML 2 GM/100 ML BAG IV SCH (10:09)
[2019-09-07] MEDS: HYDROXYCHLOROQUINE 200 MG TAB PO SCH ×2 (10:09→21:29)
[2019-09-07] MEDS: DIVALPROEX DR 250 MG TAB PO SCH ×2 (10:10→21:28)
[2019-09-07] MEDS: LINAGLIPTIN 5 MG TAB PO SCH (10:10)
[2019-09-07] MEDS: LISINOPRIL 5 MG TAB PO SCH (10:10)
--- NOTE | 2019-09-07 10:55 | Progress Note ---
Assessment and Plan Assessment and plan: Patient is a 69 yo woman with a history of tobacco dependency, OA, SVT, hypertension, seizure disorder and DM type 2 who presented to [facility] ED on 09/02/19 with SOB and cough. Per ED documentation, EMS found HR >200, SVT, SBP 240 mmHg and treated with Amiodarone and Adenosine. * pCXR: Mild bilateral interstitial disease * NM perfusion lung scan (v/q not available) Impression: Abnormal perfusion scan most likely on the basis of chronic interstitial fibrosis but small PE could produce these findings (no CTA due Ki and lack IV access placement) * TTE Conclusions: mild concentric LVH, est EF 35-40%, abnormal diastolic filling c/w impaired relaxation, RVSF mildly reduced, technically difficult Severe Sespis due to pneumonia: treat with IV abx Bilateral pneumonia most likely COVID 19 related: treat with rocephin, azithromycin, ID following Acute hypoxic respiratory failure: continue O2 supplementation SVT: consulted cardiology, input noted +COVID 19: ID following, ordered procalitonin and prone position KI, suspected vasomotor nephropathy, poa, resolved HYpokalemia: replete and monitor closely 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 Chronic Combined heart failure: Cardiology following DM type 2: SSI Seizure D/O: continue Depakote DVT ppx sq lovenox full code 09/04/19: First day with patient, he is COVID 19 positive. D/W ID will start protocol. 09/05/19: still on 3liters O2, 93% o2 sat, holding steady, Inflammatory markers slightly increase, will repeat in 48h 09/06/19: on 2 liters holding steady, markers going up continue to monitor for ARDS. 09/07/19: doing well, no complaints, eating well, wants to go home 97% on 2 liters. some markers are normal now, hopefully home with o2 soon. History Interval history: Patient was seen and examined. Follow-up on current diagnosis PNA and PUI for COVID 19. Overnight uneventful as no events directly reported to me. Patient denies any chest pain, or severe headaches. Imaging, nursing note, chart, labs and old chart reviewed. Discussed with patient. PUI?: Yes COVID19: Positive Hospitalist Physical - Physical exam Narrative exam: Gen: WDWN, NAD, Awake, Alert, Orientated HEENT: NCAT, EOMI, PERRL, OP Clear Neck: supple, no adenopathy, no thyromegaly, no JVD CVS/Heart: RRR, normal S1S2, pulses present bilaterally Chest/Lungs: diminished bs bilateral Symmetrical chest expansion, good air entry bilaterally GI/Abdomen: soft, NTND, good bowel sounds, no guarding or rebound /Bladder: no suprapubic tenderness, no CVA or paraspinal tenderness Extermity/Skin: no c/c/e, no obvious rash MSK: FROM x 4 Neuro: CN 2-12 grossly intact, no new focal deficits Psych: calm - Constitutional Vitals: Temp Pulse Resp BP Pulse Ox 97.6 F 66 16 110/56 96 09/07/19 05:43 09/07/19 05:43 09/07/19 08:35 09/07/19 05:43 09/07/19 05:43 Results - Labs CBC & Chem 7: 09/04/19 04:36 09/04/19 04:36 Labs: Laboratory Last Values WBC 5.3 K/mm3 (4.5-11.0) 09/04/19 04:36 RBC 4.66 M/mm3 (3.65-5.03) 09/04/19 04:36 Hgb 15.3 gm/dl (10.1-14.3) H 09/04/19 04:36 Hct 45.4 % (30.3-42.9) H 09/04/19 04:36 MCV 97 fl (79-97) 09/04/19 04:36 MCH 33 pg (28-32) H 09/04/19 04:36 MCHC 34 % (30-34) 09/04/19 04:36 RDW 15.2 % (13.2-15.2) 09/04/19 04:36 Plt Count 142 K/mm3 (140-440) 09/04/19 04:36 Lymph % (Auto) 16.2 % (13.4-35.0) 09/03/19 10:20 Schleicher % (Auto) 5.6 % (0.0-7.3) 09/03/19 10:20 Eos % (Auto) 0.0 % (0.0-4.3) 09/03/19 10:20 Baso % (Auto) 0.8 % (0.0-1.8) 09/03/19 10:20 Lymph # 0.7 K/mm3 (1.2-5.4) L 09/03/19 10:20 Schleicher # 0.3 K/mm3 (0.0-0.8) 09/03/19 10:20 Eos # 0.0 K/mm3 (0.0-0.4) 09/03/19 10:20 Baso # 0.0 K/mm3 (0.0-0.1) 09/03/19 10:20 Seg Neutrophils % 77.4 % (40.0-70.0) H 09/03/19 10:20 Seg Neutrophils # 3.6 K/mm3 (1.8-7.7) 09/03/19 10:20 PT 13.8 Sec. (12.2-14.9) 09/01/19 22:42 INR 1.05 (0.87-1.13) 09/01/19 22:42 APTT 25.7 Sec. (24.2-36.6) 09/01/19 22:42 D-Dimer < 135.00 ng/mlDDU (0-234) 09/07/19 04:53 Sodium 136 mmol/L (137-145) L 09/04/19 04:36 Potassium 3.3 mmol/L (3.6-5.0) L 09/04/19 04:36 Chloride 97.2 mmol/L (98-107) L 09/04/19 04:36 Carbon Dioxide 22 mmol/L (22-30) 09/04/19 04:36 Anion Gap 20 mmol/L 09/04/19 04:36 BUN 10 mg/dL (7-17) 09/04/19 04:36 Creatinine 0.8 mg/dL (0.7-1.2) 09/04/19 04:36 Estimated GFR > 60 ml/min 09/04/19 04:36 BUN/Creatinine Ratio 13 % 09/04/19 04:36 Glucose 89 mg/dL (65-100) 09/04/19 04:36 POC Glucose 83 (70-105) 09/06/19 16:43 Calcium 8.9 mg/dL (8.4-10.2) 09/04/19 04:36 Magnesium 2.10 mg/dL (1.7-2.3) 09/02/19 13:51 Ferritin 1011.0 ng/mL (13.0-400.0) H 09/07/19 04:53 Total Bilirubin 0.50 mg/dL (0.1-1.2) 09/01/19 22:42 AST 18 units/L (5-40) 09/01/19 22:42 ALT 8 units/L (7-56) 09/01/19 22:42 Alkaline Phosphatase 72 units/L (35-129) 09/01/19 22:42 Lactate Dehydrogenase 393 units/L (91-180) H 09/07/19 04:53 Total Creatine Kinase 68 units/L (30-135) 09/02/19 08:24 CK-MB (CK-2) 3.1 ng/mL (0.0-4.0) 09/02/19 08:24 CK-MB (CK-2) Rel Index 4.5 (0-4) H 09/02/19 08:24 Troponin T 0.047 ng/mL (0.00-0.029) H D 09/02/19 08:24 C-Reactive Protein 14.60 mg/dL (0.00-1.30) H 09/07/19 04:53 NT-Pro-B Natriuret Pep 532.1 pg/mL (0-900) 09/01/19 22:42 Total Protein 7.2 g/dL (6.3-8.2) 09/01/19 22:42 Albumin 3.2 g/dL (3.9-5) L 09/01/19 22:42 Albumin/Globulin Ratio 0.8 % 09/01/19 22:42 Triglycerides 147 mg/dL (2-149) 09/01/19 22:42 Cholesterol 190 mg/dL (50-199) 09/01/19 22:42 LDL Cholesterol Direct 125 mg/dL (50-130) 09/01/19 22:42 HDL Cholesterol 32 mg/dL (40-59) L 09/01/19 22:42 Cholesterol/HDL Ratio 5.93 % 09/01/19 22:42 Procalcitonin < 0.05 ng/mL (<0.15) 09/04/19 04:36 TSH 0.868 mlU/mL (0.270-4.200) 09/02/19 13:51 Free T4 1.04 ng/dL (0.76-1.46) 09/02/19 13:51 Influenza A (Rapid) Negative (Negative) 09/02/19 02:36 Influenza B (Rapid) Negative (Negative) 09/02/19 02:36 Miscellaneous Test See scanned result 09/02/19 Unknown Microbiology: Microbiology 09/05/19 19:37 Peripheral/Venous Blood Culture - Preliminary NO GROWTH AFTER 24 HOURS 09/05/19 19:35 Peripheral/Venous Blood Culture - Preliminary NO GROWTH AFTER 24 HOURS - Diagnostic Impressions Diagnostic Impressions: Echocardiogram 09/02/19 02:58 Transthoracic Echocardiogram Indication: SVT BP: 116/58 HR: 89 Conclusions *Mild concentric left ventricular hypertrophy is observed. *Global left ventricular systolic function is moderately decreased. *The estimated ejection fraction is 35-40%. *There is no pericardial effusion. Findings Procedure Info: The study quality is technically difficult. Left Ventricle: The left ventricular chamber size is normal. Mild concentric left ventricular hypertrophy is observed. Global left ventricular systolic function is moderately decreased. The estimated ejection fraction is 35-40%. Abnormal left ventricular diastolic filling is observed, consistent with impaired relaxation. Left Atrium: The left atrial chamber size is normal. Right Ventricle: The right ventricular cavity size is normal. The right ventricular global systolic function is mildly reduced. Right Atrium: The right atrial cavity size is normal. Aortic Valve: Mild aortic leaflet calcification is visualized. Mitral Valve: The mitral valve leaflets are mildly thickened. There is trace of mitral regurgitation. Tricuspid Valve: The tricuspid valve leaflets are normal. Pulmonic Valve: The pulmonic valve is not well visualized. Pericardium: There is no pericardial effusion. Aorta: The aorta appears normal. Venous: The inferior vena cava appears normal. Measurements Chambers 2D Name Value Normal Range IVSd (2D) 1.17 cm (0.6 - 1.1) LVPWd (2D) 1.16 cm (0.6 - 1.1) LVIDd (2D) 4.74 cm (3.7 - 5.6) LVIDs (2D) 3.87 cm (2 - 3.8) LV FS (2D) 18.41 % - EF Teichholz (2D) 38.12 % - Ao root diameter (2D) 2.89 cm (2 - 3.7) Volumes/Mass Name Value Normal Range LA ESV SP 4CH (A/L) 29.66 ml - LA ESV SP 2CH (A/L) 42.5 ml - LA ESV BP (A/L) 38.26 ml - LA ESV BP (A/L) index 18.22 ml/m2 - LA ESV SP 4CH (MOD) 28.22 ml - LA ESV SP 2CH (MOD) 40.85 ml - LA ESV BP (MOD) 36.54 ml - LA ESV BP (MOD) index 17.4 ml/m2 - LV EDV SP 4CH (MOD) 66.87 ml - LV ESV SP 4CH (MOD) 50.83 ml - EF SP 4CH (MOD) 23.99 % - LV EDV SP 2CH (MOD) 83.49 ml - LV ESV SP 2CH (MOD) 51.79 ml - EF SP 2CH (MOD) 37.98 % - LV EDV BP 80.05 ml - LV ESV BP 52.53 ml - BP EF (MOD) 34.38 % - Diastolic/Systolic Function Name Value Normal Range MV E-wave Vmax 0.68 m/sec - MV deceleration time 223.11 msec - MV A-wave Vmax 1.06 m/sec - MV E:A ratio 0.64 ratio - Aortic Valve Name Value Normal Range AV Vmax 1.31 m/sec - AV VTI 22.93 cm - AV peak gradient 6.86 mmHg - AV mean gradient 3.78 mmHg - LVOT diameter 2.06 cm - LVOT Vmax 0.8 m/sec - LVOT VTI 16.35 cm - LVOT peak gradient 2.57 mmHg - LVOT mean gradient 1.4 mmHg - SV LVOT 54.25 ml - CARLTON (continuity Vmax) 2.03 cm2 - CARLTON (continuity VTI) 2.37 cm2 - Mitral Valve Name Value Normal Range MR Vmax 3.22 m/sec - Fountain/IV: Voiding Method External Female Catheter IV Catheter Type [Left Forearm Peripheral IV ] IV Catheter Type [Left Hand] Peripheral IV Active Medications - Current Medications Current Medications: Generic Name Dose Route Start Last Admin Trade Name Freq PRN Reason Stop Dose Admin Acetaminophen 650 mg 09/02/19 02:54 09/06/19 21:48 Tylenol PO 650 mg Q4H PRN Administration Pain MILD(1-3)/Fever >100.5/NÚÑEZ Amitriptyline HCl 25 mg 09/02/19 22:00 09/06/19 21:48 Elavil PO 25 mg QHS EYAD Administration Dextrose 0 ml 09/02/19 02:54 D50w (25gm) Syringe IV Q30MIN PRN Hypoglycemia Protocol Divalproex Sodium 250 mg 09/04/19 22:00 09/07/19 10:[address] PO 250 mg BID EYAD Administration Enoxaparin Sodium 40 mg 09/02/19 10:00 09/07/19 10:09 Enoxaparin SUB-Q 40 mg QDAY EYAD Administration Hydroxychloroquine Sulfate 200 mg 09/05/19 10:00 09/07/19 10:09 Plaquenil PO 09/08/19 22:01 200 mg BID EYAD Administration Sodium Chloride 1,000 mls @ 75 mls/hr 09/02/19 03:00 09/06/19 21:50 Nacl 0.9% 1000 Ml IV 75 mls/hr DIRECT EYAD Administration Ceftriaxone Sodium 2 gm in 100 mls @ 200 mls/hr 09/02/19 21:00 09/07/19 10:09 Rocephin/Ns 2 Gm/100 Ml IV 200 mls/hr Q24HR EYAD Administration Protocol Insulin Human Lispro 0 unit 09/04/19 11:30 09/07/19 08:00 Humalog SUB-Q Not Given ACHS EYAD Protocol Linagliptin 5 mg 09/02/19 10:00 09/07/19 10:10 Tradjenta PO Not Given QDAY EYAD Lisinopril 2.5 mg 09/02/19 10:00 09/07/19 10:10 Zestril PO 2.5 mg QDAY EYAD Administration Metoprolol Tartrate 25 mg 09/02/19 22:00 09/07/19 10:09 Metoprolol PO 25 mg BID EYAD Administration Ondansetron HCl 4 mg 09/02/19 02:54 Zofran IV Q8H PRN Nausea And Vomiting Sodium Chloride 10 ml 09/02/19 10:00 09/07/19 10:10 Sodium Chloride Flush Syringe 10 Ml IV 10 ml BID EYAD Administration Sodium Chloride 10 ml 09/02/19 02:54 Sodium Chloride Flush Syringe 10 Ml IV PRN PRN LINE FLUSH Zinc Sulfate 220 mg 09/05/19 12:00 09/06/19 12:11 Zinc Sulfate PO 09/08/19 12:01 220 mg DAILY@1200 EYAD Administration
[2019-09-07] MEDS: ZINC SULFATE 220 MG CAP PO SCH (14:15)
[2019-09-07] MEDS: SODIUM CHLORIDE 0.9% 1000 ML 1,000 ML IV SCH (15:35)
[2019-09-07] MEDS: AMITRIPTYLINE 25 MG TAB PO SCH (21:28)
[2019-09-07] MEDS: ACETAMINOPHEN 325 MG TAB PO PRN (21:28)
[2019-09-07] MEDS ORDERED: METOPROLOL TARTRATE 5 MG/5 ML INJ IV ONE (23:39)
[2019-09-08] MEDS ORDERED: dilTIAZem 25 MG/5 ML INJ IV ONE (00:08)
[2019-09-08 06:42] LABS: C-Reactive Protein 6.9 mg/dL (0.00-1.30)
[2019-09-08] MEDS: DIVALPROEX DR 250 MG TAB PO SCH ×2 (09:36→22:06)
[2019-09-08] MEDS: ENOXAPARIN 40 MG/0.4 ML INJ SUB-Q SCH (09:36)
[2019-09-08] MEDS: HYDROXYCHLOROQUINE 200 MG TAB PO SCH ×2 (09:36→22:06)
[2019-09-08] MEDS: cefTRIAXone/NS 2 GM/100 ML 2 GM/100 ML BAG IV SCH (09:36)
[2019-09-08] MEDS: LINAGLIPTIN 5 MG TAB PO SCH (09:36)
[2019-09-08] MEDS: INSULIN LISPRO 100 UNIT/ML SUB-Q SCH ×4 (09:37→23:22)
[2019-09-08] MEDS: LISINOPRIL 5 MG TAB PO SCH (09:42)
[2019-09-08] MEDS: METOPROLOL TARTRATE 25 MG TAB PO SCH ×2 (09:42→23:19)
--- NOTE | 2019-09-08 12:05 | Progress Note ---
Assessment and Plan Assessment and plan: Patient is a 69 yo woman with a history of tobacco dependency, OA, SVT, hypertension, seizure disorder and DM type 2 who presented to [facility] ED on 09/02/19 with SOB and cough. Per ED documentation, EMS found HR >200, SVT, SBP 240 mmHg and treated with Amiodarone and Adenosine. * pCXR: Mild bilateral interstitial disease * NM perfusion lung scan (v/q not available) Impression: Abnormal perfusion scan most likely on the basis of chronic interstitial fibrosis but small PE could produce these findings (no CTA due Ki and lack IV access placement) * TTE Conclusions: mild concentric LVH, est EF 35-40%, abnormal diastolic filling c/w impaired relaxation, RVSF mildly reduced, technically difficult Severe Sespis due to pneumonia: treat with IV abx Bilateral pneumonia most likely COVID 19 related: treat with rocephin, azithromycin, ID following Acute hypoxic respiratory failure: continue O2 supplementation SVT: consulted cardiology, input noted +COVID 19: ID following, ordered procalitonin and prone position KI, suspected vasomotor nephropathy, poa, resolved HYpokalemia: replete and monitor closely Tobacco dependency: senior counsel commercial on stopping. Chronic Combined heart failure: Cardiology following DM type 2: SSI Seizure D/O: continue Depakote DVT ppx sq lovenox full code 09/04/19: First day with patient, he is COVID 19 positive. D/W ID will start protocol. 09/05/19: still on 3liters O2, 93% o2 sat, holding steady, Inflammatory markers slightly increase, will repeat in 48h 09/06/19: on 2 liters holding steady, markers going up continue to monitor for ARDS. 09/07/19: doing well, no complaints, eating well, wants to go home 97% on 2 liters. some markers are normal now, hopefully home with o2 soon. 09/08/19: Inflammatory markers are slightly going down, d/c once cleared by ID History Interval history: Patient was seen and examined. Follow-up on current diagnosis PNA and PUI for COVID 19. Overnight uneventful as no events directly reported to me. Patient denies any chest pain, or severe headaches. Imaging, nursing note, chart, labs and old chart reviewed. Discussed with patient. PUI?: Yes COVID19: Positive Hospitalist Physical - Physical exam Narrative exam: Gen: WDWN, NAD, Awake, Alert, Orientated HEENT: NCAT, EOMI, PERRL, OP Clear Neck: supple, no adenopathy, no thyromegaly, no JVD CVS/Heart: RRR, normal S1S2, pulses present bilaterally Chest/Lungs: diminished bs bilateral Symmetrical chest expansion, good air entry bilaterally GI/Abdomen: soft, NTND, good bowel sounds, no guarding or rebound /Bladder: no suprapubic tenderness, no CVA or paraspinal tenderness Extermity/Skin: no c/c/e, no obvious rash MSK: FROM x 4 Neuro: CN 2-12 grossly intact, no new focal deficits Psych: calm - Constitutional Vitals: Temp Pulse Resp BP Pulse Ox 97.8 F 71 18 128/68 96 09/07/19 23:57 09/08/19 09:42 09/08/19 04:33 09/08/19 09:42 09/08/19 08:51 Results - Labs CBC & Chem 7: 09/04/19 04:36 09/04/19 04:36 Labs: Laboratory Last Values WBC 5.3 K/mm3 (4.5-11.0) 09/04/19 04:36 RBC 4.66 M/mm3 (3.65-5.03) 09/04/19 04:36 Hgb 15.3 gm/dl (10.1-14.3) H 09/04/19 04:36 Hct 45.4 % (30.3-42.9) H 09/04/19 04:36 MCV 97 fl (79-97) 09/04/19 04:36 MCH 33 pg (28-32) H 09/04/19 04:36 MCHC 34 % (30-34) 09/04/19 04:36 RDW 15.2 % (13.2-15.2) 09/04/19 04:36 Plt Count 142 K/mm3 (140-440) 09/04/19 04:36 Lymph % (Auto) 16.2 % (13.4-35.0) 09/03/19 10:20 [place] % (Auto) 5.6 % (0.0-7.3) 09/03/19 10:20 Eos % (Auto) 0.0 % (0.0-4.3) 09/03/19 10:20 Baso % (Auto) 0.8 % (0.0-1.8) 09/03/19 10:20 Lymph # 0.7 K/mm3 (1.2-5.4) L 09/03/19 10:20 [place] # 0.3 K/mm3 (0.0-0.8) 09/03/19 10:20 Eos # 0.0 K/mm3 (0.0-0.4) 09/03/19 10:20 Baso # 0.0 K/mm3 (0.0-0.1) 09/03/19 10:20 Seg Neutrophils % 77.4 % (40.0-70.0) H 09/03/19 10:20 Seg Neutrophils # 3.6 K/mm3 (1.8-7.7) 09/03/19 10:20 PT 13.8 Sec. (12.2-14.9) 09/01/19 22:42 INR 1.05 (0.87-1.13) 09/01/19 22:42 APTT 25.7 Sec. (24.2-36.6) 09/01/19 22:42 D-Dimer 810.2 ng/mlDDU (0-234) H 09/08/19 04:33 Sodium 136 mmol/L (137-145) L 09/04/19 04:36 Potassium 3.3 mmol/L (3.6-5.0) L 09/04/19 04:36 Chloride 97.2 mmol/L (98-107) L 09/04/19 04:36 Carbon Dioxide 22 mmol/L (22-30) 09/04/19 04:36 Anion Gap 20 mmol/L 09/04/19 04:36 BUN 10 mg/dL (7-17) 09/04/19 04:36 Creatinine 0.8 mg/dL (0.7-1.2) 09/04/19 04:36 Estimated GFR > 60 ml/min 09/04/19 04:36 BUN/Creatinine Ratio 13 % 09/04/19 04:36 Glucose 89 mg/dL (65-100) 09/04/19 04:36 POC Glucose 85 (70-105) 09/08/19 08:05 Calcium 8.9 mg/dL (8.4-10.2) 09/04/19 04:36 Magnesium 2.10 mg/dL (1.7-2.3) 09/02/19 13:51 Ferritin 893.8 ng/mL (13.0-400.0) H 09/08/19 04:33 Total Bilirubin 0.50 mg/dL (0.1-1.2) 09/01/19 22:42 AST 18 units/L (5-40) 09/01/19 22:42 ALT 8 units/L (7-56) 09/01/19 22:42 Alkaline Phosphatase 72 units/L (35-129) 09/01/19 22:42 Lactate Dehydrogenase 387 units/L (91-180) H 09/08/19 04:33 Total Creatine Kinase 68 units/L (30-135) 09/02/19 08:24 CK-MB (CK-2) 3.1 ng/mL (0.0-4.0) 09/02/19 08:24 CK-MB (CK-2) Rel Index 4.5 (0-4) H 09/02/19 08:24 Troponin T 0.047 ng/mL (0.00-0.029) H D 09/02/19 08:24 C-Reactive Protein 6.90 mg/dL (0.00-1.30) H 09/08/19 04:33 NT-Pro-B Natriuret Pep 532.1 pg/mL (0-900) 09/01/19 22:42 Total Protein 7.2 g/dL (6.3-8.2) 09/01/19 22:42 Albumin 3.2 g/dL (3.9-5) L 09/01/19 22:42 Albumin/Globulin Ratio 0.8 % 09/01/19 22:42 Triglycerides 147 mg/dL (2-149) 09/01/19 22:42 Cholesterol 190 mg/dL (50-199) 09/01/19 22:42 LDL Cholesterol Direct 125 mg/dL (50-130) 09/01/19 22:42 HDL Cholesterol 32 mg/dL (40-59) L 09/01/19 22:42 Cholesterol/HDL Ratio 5.93 % 09/01/19 22:42 Procalcitonin < 0.05 ng/mL (<0.15) 09/04/19 04:36 TSH 0.868 mlU/mL (0.270-4.200) 09/02/19 13:51 Free T4 1.04 ng/dL (0.76-1.46) 09/02/19 13:51 Influenza A (Rapid) Negative (Negative) 09/02/19 02:36 Influenza B (Rapid) Negative (Negative) 09/02/19 02:36 Miscellaneous Test See scanned result 09/02/19 Unknown Microbiology: Microbiology 09/05/19 19:37 Peripheral/Venous Blood Culture - Preliminary NO GROWTH AFTER 48 HOURS 09/05/19 19:35 Peripheral/Venous Blood Culture - Preliminary NO GROWTH AFTER 48 HOURS - Diagnostic Impressions Diagnostic Impressions: Echocardiogram 09/02/19 02:58 Transthoracic Echocardiogram Indication: SVT BP: 116/58 HR: 89 Conclusions *Mild concentric left ventricular hypertrophy is observed. *Global left ventricular systolic function is moderately decreased. *The estimated ejection fraction is 35-40%. *There is no pericardial effusion. Findings Procedure Info: The study quality is technically difficult. Left Ventricle: The left ventricular chamber size is normal. Mild concentric left ventricular hypertrophy is observed. Global left ventricular systolic function is moderately decreased. The estimated ejection fraction is 35-40%. Abnormal left ventricular diastolic filling is observed, consistent with impaired relaxation. Left Atrium: The left atrial chamber size is normal. Right Ventricle: The right ventricular cavity size is normal. The right ventricular global systolic function is mildly reduced. Right Atrium: The right atrial cavity size is normal. Aortic Valve: Mild aortic leaflet calcification is visualized. Mitral Valve: The mitral valve leaflets are mildly thickened. There is trace of mitral regurgitation. Tricuspid Valve: The tricuspid valve leaflets are normal. Pulmonic Valve: The pulmonic valve is not well visualized. Pericardium: There is no pericardial effusion. Aorta: The aorta appears normal. Venous: The inferior vena cava appears normal. Measurements Chambers 2D Name Value Normal Range IVSd (2D) 1.17 cm (0.6 - 1.1) LVPWd (2D) 1.16 cm (0.6 - 1.1) LVIDd (2D) 4.74 cm (3.7 - 5.6) LVIDs (2D) 3.87 cm (2 - 3.8) LV FS (2D) 18.41 % - EF Teichholz (2D) 38.12 % - Ao root diameter (2D) 2.89 cm (2 - 3.7) Volumes/Mass Name Value Normal Range LA ESV SP 4CH (A/L) 29.66 ml - LA ESV SP 2CH (A/L) 42.5 ml - LA ESV BP (A/L) 38.26 ml - LA ESV BP (A/L) index 18.22 ml/m2 - LA ESV SP 4CH (MOD) 28.22 ml - LA ESV SP 2CH (MOD) 40.85 ml - LA ESV BP (MOD) 36.54 ml - LA ESV BP (MOD) index 17.4 ml/m2 - LV EDV SP 4CH (MOD) 66.87 ml - LV ESV SP 4CH (MOD) 50.83 ml - EF SP 4CH (MOD) 23.99 % - LV EDV SP 2CH (MOD) 83.49 ml - LV ESV SP 2CH (MOD) 51.79 ml - EF SP 2CH (MOD) 37.98 % - LV EDV BP 80.05 ml - LV ESV BP 52.53 ml - BP EF (MOD) 34.38 % - Diastolic/Systolic Function Name Value Normal Range MV E-wave Vmax 0.68 m/sec - MV deceleration time 223.11 msec - MV A-wave Vmax 1.06 m/sec - MV E:A ratio 0.64 ratio - Aortic Valve Name Value Normal Range AV Vmax 1.31 m/sec - AV VTI 22.93 cm - AV peak gradient 6.86 mmHg - AV mean gradient 3.78 mmHg - LVOT diameter 2.06 cm - LVOT Vmax 0.8 m/sec - LVOT VTI 16.35 cm - LVOT peak gradient 2.57 mmHg - LVOT mean gradient 1.4 mmHg - SV LVOT 54.25 ml - CARLTON (continuity Vmax) 2.03 cm2 - CARLTON (continuity VTI) 2.37 cm2 - Mitral Valve Name Value Normal Range MR Vmax 3.22 m/sec - [place]/IV: Voiding Method External Female Catheter IV Catheter Type [Left Forearm Peripheral IV ] IV Catheter Type [Left Hand] Peripheral IV Active Medications - Current Medications Current Medications: Generic Name Dose Route Start Last Admin Trade Name Freq PRN Reason Stop Dose Admin Acetaminophen 650 mg 09/02/19 02:54 09/07/19 21:28 Tylenol PO 650 mg Q4H PRN Administration Pain MILD(1-3)/Fever >100.5/NÚÑEZ Amitriptyline HCl 25 mg 09/02/19 22:00 09/07/19 21:28 Elavil PO 25 mg QHS EYAD Administration Dextrose 0 ml 09/02/19 02:54 D50w (25gm) Syringe IV Q30MIN PRN Hypoglycemia Protocol Divalproex Sodium 250 mg 09/04/19 22:00 09/08/19 09:[address] PO 250 mg BID EYAD Administration Enoxaparin Sodium 40 mg 09/02/19 10:00 09/08/19 09:36 Enoxaparin SUB-Q 40 mg QDAY EYAD Administration Hydroxychloroquine Sulfate 200 mg 09/05/19 10:00 09/08/19 09:36 Plaquenil PO 09/08/19 22:01 200 mg BID EYAD Administration Sodium Chloride 1,000 mls @ 75 mls/hr 09/02/19 03:00 09/07/19 15:35 Nacl 0.9% 1000 Ml IV 75 mls/hr DIRECT EYAD Administration Ceftriaxone Sodium 2 gm in 100 mls @ 200 mls/hr 09/02/19 21:00 09/08/19 09:36 Rocephin/Ns 2 Gm/100 Ml IV 200 mls/hr Q24HR EYAD Administration Protocol Insulin Human Lispro 0 unit 09/04/19 11:30 09/08/19 09:37 Humalog SUB-Q Not Given ACHS EYAD Protocol Linagliptin 5 mg 09/02/19 10:00 09/08/19 09:36 Tradjenta PO 5 mg QDAY EYAD Administration Lisinopril 2.5 mg 09/02/19 10:00 09/08/19 09:42 Zestril PO 2.5 mg QDAY EYAD Administration Metoprolol Tartrate 25 mg 09/02/19 22:00 09/08/19 09:42 Metoprolol PO 25 mg BID EYAD Administration Ondansetron HCl 4 mg 09/02/19 02:54 Zofran IV Q8H PRN Nausea And Vomiting Sodium Chloride 10 ml 09/02/19 10:00 09/08/19 09:37 Sodium Chloride Flush Syringe 10 Ml IV 10 ml BID EYAD Administration Sodium Chloride 10 ml 09/02/19 02:54 Sodium Chloride Flush Syringe 10 Ml IV PRN PRN LINE FLUSH
[2019-09-08] MEDS: ZINC SULFATE 220 MG CAP PO SCH (13:35)
--- NOTE | 2019-09-08 15:03 | Progress Note ---
Assessment and Plan Assessment: 69-year-old woman with hypertension, paroxysmal SVT, seizure disorder, diabetes, chronic kidney disease admitted on due to 3-day history of generalized weakness, palpitations, sweats, cough and progressive SOB: #Severe sepsis: Likely due to bilateral pneumonia. #COVID-19 pneumonia: COVID test positive. #Acute hypoxic respiratory failure: on NC 2 L now on 3L #Thrombocytopenia: due to COVID? Better Recommendations: CRP trending down. Ferritin, LDH, d-dimer stable. No fever. Remains on oxygen. Completed 5 days of Plaquenil. OK for discharge home, eval for home oxygen prior to discharge. Return to the hospital if breathing worsens Preston Mccauley MD, FACP [facility] ([facility] C: [phone] O: [phone] F: [phone] Subjective Date of service: 09/08/19 Principal diagnosis: SVT Interval history: Afebrile. On oxygen, stable requirements, 2 liters by NC. PUI?: Yes COVID19: Positive Objective - Exam Narrative Exam: Physical Exam (reviewed in chart due to PPE conservation) Constitutional: limited due to PPE conservation strategy Head, Ears, Nose: limited due to PPE conservation strategy Eyes: limited due to PPE conservation strategy Neck: limited due to PPE conservation strategy Oral: limited due to PPE conservation strategy Cardiovascular: limited due to PPE conservation strategy Respiratory: limited due to PPE conservation strategy GI: limited due to PPE conservation strategy Musculoskeletal: limited due to PPE conservation strategy Skin: limited due to PPE conservation strategy Hem/Lymphatic: limited due to PPE conservation strategy Psych: limited due to PPE conservation strategy Neurological: limited due to PPE conservation strategy - Constitutional Vitals: Vital Signs Temp Pulse Resp BP Pulse Ox 98.4 F 77 18 138/65 91 09/08/19 12:08 09/08/19 12:08 09/08/19 12:08 09/08/19 12:08 09/08/19 12:08 Temperature -Last 24 Hours Temperature 98.4 F Temperature 98.0 F Temperature 97.8 F Temperature 97.8 F Temperature 98.1 F Temperature 99.3 F - Labs CBC & Chem 7: 09/04/19 04:36 09/04/19 04:36 Labs: Abnormal lab results 09/08/19 09/08/19 09/08/19 Range/Units 04:33 04:33 04:33 D-Dimer 810.2 H (0-234) ng/mlDDU Ferritin 893.8 H (13.0-400.0) ng/mL Lactate Dehydrogenase 387 H (91-180) units/L C-Reactive Protein 6.90 H (0.00-1.30) mg/dL
[2019-09-08] MEDS: SODIUM CHLORIDE 0.9% 1000 ML 1,000 ML IV SCH (16:57)
[2019-09-08] MEDS: AMITRIPTYLINE 25 MG TAB PO SCH (22:06)
[2019-09-09] MEDS: SODIUM CHLORIDE 0.9% 1000 ML 1,000 ML IV SCH (06:48)
[2019-09-09] MEDS: METOPROLOL TARTRATE 25 MG TAB PO SCH (09:37)
[2019-09-09] MEDS: ENOXAPARIN 40 MG/0.4 ML INJ SUB-Q SCH (09:37)
[2019-09-09] MEDS: LISINOPRIL 5 MG TAB PO SCH (09:37)
[2019-09-09] MEDS: cefTRIAXone/NS 2 GM/100 ML 2 GM/100 ML BAG IV SCH (09:37)
[2019-09-09] MEDS: DIVALPROEX DR 250 MG TAB PO SCH (09:38)
[2019-09-09] MEDS: LINAGLIPTIN 5 MG TAB PO SCH (09:38)
[2019-09-09] MEDS: INSULIN LISPRO 100 UNIT/ML SUB-Q SCH (09:39)
--- NOTE | 2019-09-09 14:09 | Discharge Summary ---
Providers - Providers Date of Admission: 09/02/19 03:42 Date of discharge: 09/09/19 Attending physician: RILEY GUSMAN 09/02/19 02:54 Consult to Physician [CONS] Routine Comment: Consulting Provider: DAVID RANGEL Physician Instructions: Reason For Exam: cough, sob, possible covid 09/02/19 02:57 Consult to Physician [CONS] Routine Comment: Consulting Provider: ARASELI VASQUEZ Physician Instructions: Reason For Exam: svt Primary care physician: MANAGER PLANNING Hospitalization Condition: Stable Hospital course: Patient is a 69 yo woman with a history of tobacco dependency, OA, SVT, hypertension, seizure disorder and DM type 2 who presented to [facility] ED on 09/02/19 with SOB and cough. Per ED documentation, EMS found HR >200, SVT, SBP 240 mmHg and treated with Amiodarone and Adenosine. His chest x-ray showed bilateral interstitial disease, suspected for COVID-19 and test was positive. ID was consulted patient was treated with Plaquenil. She has clinically improved, and ID cleared for discharge. Patient will follow-up outpatient and was discharged home with home oxygen in stable condition. Pshould self-quarantine for 14 days from symptom beginning. Patients should return to hospital regardless if they have worsening fevers or respiratory status. Please avoid NSAIDs. Radiological data: pCXR: Mild bilateral interstitial disease NM perfusion lung scan (v/q not available) Impression: Abnormal perfusion scan most likely on the basis of chronic interstitial fibrosis but small PE could produce these findings (no CTA due Ki and lack IV access placement) TTE Conclusions: mild concentric LVH, est EF 35-40%, abnormal diastolic filling c/w impaired relaxation, RVSF mildly reduced, technically difficult Discharge diagnosis: Severe Sespis due to pneumonia: Bilateral pneumonia most likely COVID 19 related: Acute hypoxic respiratory failure: Due to bilateral pneumonia, will need home oxygen SVT: consulted cardiology, input noted. Need stress test as outpatient +COVID 19 pneumonia KI, suspected vasomotor nephropathy, poa, resolved HYpokalemia: replete and monitor closely Tobacco dependency: pre parole counseling aide on stopping. Chronic Combined heart failure: Cardiology following DM type 2: SSI Seizure D/O: continue Depakote DVT ppx sq lovenox Physical exam: Gen: WDWN, NAD, Awake, Alert, Orientated HEENT: NCAT, EOMI, PERRL, OP Clear Neck: supple, no adenopathy, no thyromegaly, no JVD CVS/Heart: RRR, normal S1S2, pulses present bilaterally Chest/Lungs: diminished bs bilateral Symmetrical chest expansion, good air entry bilaterally GI/Abdomen: soft, NTND, good bowel sounds, no guarding or rebound /Bladder: no suprapubic tenderness, no CVA or paraspinal tenderness Extermity/Skin: no c/c/e, no obvious rash MSK: FROM x 4 Neuro: CN 2-12 grossly intact, no new focal deficits Psych: calm Disposition: DC/TX-06 HOME UNDER HOME HL Time spent for discharge: 34 minutes Core Measure Documentation - Palliative Care Palliative Care/ Comfort Measures: Not Applicable - Core Measures Any of the following diagnoses?: history only Exam - Constitutional Vitals: Temp Pulse Resp BP Pulse Ox 98.2 F 75 22 133/72 98 09/09/19 11:43 09/09/19 11:43 09/09/19 11:43 09/09/19 11:43 09/09/19 11:43 Plan Activity: advance as tolerated Weight Bearing Status: Weight Bear as Tolerated Diet: low fat, low salt Special Instructions: restrict fluid intake to (1.2L perday), record daily weights, home oxygen via (n/c) Additional Instructions: Patient should self-quarantine for 14 days from symptom beginning. Patients should return to hospital regardless if they have worsening fevers or respiratory status. Please avoid NSAIDs. need outpt stress test. Follow up with: VIOLET CAREY MD [Primary Care Provider] - 7 Days HAYLEY JOHNSON MD [Staff Physician] - 7 Days Prescriptions: Metoprolol [Lopressor TAB] 25 mg PO BID #60 tablet
--- NOTE | 2019-09-09 14:44 | Progress Note ---
Assessment and Plan Assessment: 69-year-old woman with hypertension, paroxysmal SVT, seizure disorder, diabetes, chronic kidney disease admitted on due to 3-day history of generalized weakness, palpitations, sweats, cough and progressive SOB: #Severe sepsis: Likely due to bilateral pneumonia. #COVID-19 pneumonia: COVID test positive. CRP trending down. Ferritin, LDH, d- dimer stable. No fever. Remains on oxygen. Completed 5 days of Plaquenil. #Acute hypoxic respiratory failure: on NC 2 L now on 3L #Thrombocytopenia: due to COVID? Better Recommendations: OK for discharge home with home oxygen Preston Mccauley MD, FACP [facility] [place] [facility] C: [phone] O: [phone] F: [phone] Subjective Date of service: 09/09/19 Principal diagnosis: SVT Interval history: Afebrile. On oxygen, stable requirements. PUI?: Yes COVID19: Positive Objective - Exam Narrative Exam: Physical Exam (reviewed in chart due to PPE conservation) Constitutional: limited due to PPE conservation strategy Head, Ears, Nose: limited due to PPE conservation strategy Eyes: limited due to PPE conservation strategy Neck: limited due to PPE conservation strategy Oral: limited due to PPE conservation strategy Cardiovascular: limited due to PPE conservation strategy Respiratory: limited due to PPE conservation strategy GI: limited due to PPE conservation strategy Musculoskeletal: limited due to PPE conservation strategy Skin: limited due to PPE conservation strategy Hem/Lymphatic: limited due to PPE conservation strategy Psych: limited due to PPE conservation strategy Neurological: limited due to PPE conservation strategy - Constitutional Vitals: Vital Signs Temp Pulse Resp BP Pulse Ox 98.2 F 75 22 133/72 98 09/09/19 11:43 09/09/19 11:43 09/09/19 11:43 09/09/19 11:43 09/09/19 11:43 Temperature -Last 24 Hours Temperature 98.2 F Temperature 97.0 F Temperature 97.6 F - Labs CBC & Chem 7: 09/04/19 04:36 09/04/19 04:36
[2019-09-09 16:31] VITALS: BP 143/87
== END 2019-09-09 17:00 | disposition home health service (06) | DRG 871 ==
LOC: ED 22:17 → 3A 09-02 03:42
PROVIDERS: ADMIT Internal Medicine; ATTEND Internal Medicine
DX: A41.89 Other specified sepsis (principal); U07.1 COVID-19; J12.89 Other viral pneumonia; N17.0 Acute kidney failure with tubular necrosis; J96.01 Acute respiratory failure with hypoxia; I47.1 Supraventricular tachycardia; I50.42 Chronic combined systolic (congestive) and diastolic (congestive) heart failure; I13.0 Hypertensive heart and chronic kidney disease with heart failure and stage 1 through stage 4 chronic kidney disease, or unspecified chronic kidney disease; M19.90 Unspecified osteoarthritis, unspecified site; G40.909 Epilepsy, unspecified, not intractable, without status epilepticus; I45.19 Other right bundle-branch block; D69.6 Thrombocytopenia, unspecified; E87.6 Hypokalemia; R65.20 Severe sepsis without septic shock; N18.9 Chronic kidney disease, unspecified; E11.22 Type 2 diabetes mellitus with diabetic chronic kidney disease; F17.210 Nicotine dependence, cigarettes, uncomplicated; Z86.711 Personal history of pulmonary embolism; Z90.710 Acquired absence of both cervix and uterus; Z90.89 Acquired absence of other organs; Z82.49 Family history of ischemic heart disease and other diseases of the circulatory system; Z71.6 Tobacco abuse counseling; Z79.4 Long term (current) use of insulin
CPT/HCPCS: 36415; 71045; 78580; 80048; 80053; 80061; 82550; 82553; 82728; 82962; 83615; 83735; 83880; 84145; 84439; 84443; 84484; 85025; 85027; 85379; 85610; 85730; 86140; 87040; 87400; 93005; 93010; 93306; 94760; G0378; 87502; A9540; J0696; J1650; J7030

== ENCOUNTER 2020-09-08 21:02 | Observation (INO) | payer MEDICARE ==
[2020-09-08] MEDS ORDERED: niCARdipine DRIP 40 MG/200 ML BAG ONE (21:05)
[2020-09-08] MEDS ORDERED: dilTIAZem 25 MG/5 ML INJ ONE (21:06)
[2020-09-08] MEDS ORDERED: dilTIAZem/D5W 100 MG/100 ML BAG IV ONE (21:14)
[2020-09-08] MEDS ORDERED: ASPIRIN 81 MG TAB CHEW PO ONE (21:15)
[2020-09-08] MEDS ORDERED: SODIUM CHLORIDE 0.9% 1000 ML 1,000 ML IV ONE (21:15)
[2020-09-08] MEDS ORDERED: dilTIAZem 25 MG/5 ML INJ IV ONE (21:15)
--- NOTE | 2020-09-08 21:19 | Emergency Department Report ---
ED Palpitations HPI - General Chief Complaint: Chest Pain Stated Complaint: CHEST PAIN Time Seen by Provider: 09/08/20 21:02 Source: patient, EMS Mode of arrival: Stretcher Limitations: No Limitations - History of Present Illness Initial Comments: Patient is a 70-year-old female who presents emergency with complaints of palpitations and shortness of breath. Patient had symptoms started 45 minutes prior to arrival. Patient brought in by EMS. EMS was unable to start an IV and give the patient medications. Patient had SVT on the EKG by EMS. Patient states her symptoms are better with rest and worse with exertion. Patient denies chest pain. Patient denies cough. Patient states she had this in the past when she was sick with Covid. Patient that she was started on metoprolol. Patient that she is compliant with her medications. Patient denies recent travel. Patient denies recent international travel. Patient denies exposure to the novel coronavirus. Patient denies sick contacts. Patient denies fever and chills. Patient denies cough. Patient denies diarrhea. Patient denies coming in contact with anybody with symptoms of the no new coronavirus. MD Complaint: rapid heart beat, palpitations -: Sudden Arrythmia History: SVT Associated Symptoms: shortness of breath. denies: chest pain, syncope, near- syncope, nausea/vomiting, anxiety, diaphoresis, feeling of impending doom, muscle cramps Treatments Prior to Arrival: vagal maneuvers - Related Data Home Medications Medication Instructions Recorded Confirmed Last Taken Amitriptyline [Elavil] 25 mg PO QHS 09/01/19 09/01/19 Unknown Divalproex ER [Depakote ER] 250 mg PO BID 09/01/19 09/01/19 Unknown Lisinopril [Zestril TAB] 2.5 mg PO QDAY 09/01/19 09/01/19 Unknown Sitagliptin Phosphate [Januvia] 100 mg PO DAILY 09/01/19 09/01/19 Unknown Previous Rx's Medication Instructions Recorded Last Taken Type Metoprolol [Lopressor TAB] 25 mg PO BID #60 tablet 09/09/19 Unknown Rx Allergies Allergy/AdvReac Type Severity Reaction Status Date / Time No Known Allergies Allergy Verified 10/22/15 09:48 ED Review of Systems ROS: Stated complaint: CHEST PAIN Other details as noted in HPI Constitutional: denies: chills, fever Eyes: denies: eye pain, eye discharge, vision change ENT: denies: ear pain, throat pain Respiratory: see HPI, shortness of breath. denies: cough, wheezing Cardiovascular: as per HPI, palpitations, dyspnea on exertion. denies: chest pain Endocrine: no symptoms reported Gastrointestinal: denies: abdominal pain, nausea, diarrhea Genitourinary: denies: urgency, dysuria, discharge Musculoskeletal: denies: back pain, joint swelling, arthralgia Skin: denies: rash, lesions Neurological: denies: headache, weakness, paresthesias Psychiatric: denies: anxiety, depression Hematological/Lymphatic: denies: easy bleeding, easy bruising ED Past Medical Hx - Past Medical History Previous Medical History?: Yes Hx Hypertension: Yes Hx Arthritis: Yes Hx Seizures: Yes - Surgical History Additional Surgical History: Hysterectomy, Tonsillectomy - Family History Family history: no significant - Social History Smoking Status: Never Smoker Substance Use Type: None - Medications Home Medications: Home Medications Medication Instructions Recorded Confirmed Last Taken Type Amitriptyline [Elavil] 25 mg PO QHS 09/01/19 09/01/19 Unknown History Divalproex ER [Depakote ER] 250 mg PO BID 09/01/19 09/01/19 Unknown History Lisinopril [Zestril TAB] 2.5 mg PO QDAY 09/01/19 09/01/19 Unknown History Sitagliptin Phosphate [Januvia] 100 mg PO DAILY 09/01/19 09/01/19 Unknown History Metoprolol [Lopressor TAB] 25 mg PO BID #60 tablet 09/09/19 Unknown Rx ED Physical Exam - General Limitations: No Limitations General appearance: alert, in no apparent distress - Head Head exam: Present: atraumatic, normocephalic - Eye Eye exam: Present: normal appearance - ENT ENT exam: Present: mucous membranes moist - Neck Neck exam: Present: normal inspection - Respiratory Respiratory exam: Present: normal lung sounds bilaterally. Absent: respiratory distress - Cardiovascular Cardiovascular Exam: Present: regular rate, normal rhythm. Absent: systolic murmur, diastolic murmur, rubs, gallop - GI/Abdominal GI/Abdominal exam: Present: soft, normal bowel sounds - Extremities Exam Extremities exam: Present: normal inspection - Back Exam Back exam: Present: normal inspection - Neurological Exam Neurological exam: Present: alert, oriented X3 - Psychiatric Psychiatric exam: Present: normal affect, normal mood - Skin Skin exam: Present: warm, dry, intact, normal color. Absent: rash ED Course Vital Signs 09/08/20 09/08/20 09/08/20 21:08 21:11 21:16 Pulse Rate 168 H 170 H 66 Respiratory 12 Rate Blood Pressure 113/81 O2 Sat by Pulse 93 Oximetry 09/08/20 09/08/20 09/08/20 21:30 21:43 21:46 Pulse Rate 69 72 76 Respiratory 20 17 Rate Blood Pressure 112/63 115/64 O2 Sat by Pulse 92 89 Oximetry 09/08/20 09/08/20 09/08/20 22:00 22:15 22:31 Pulse Rate 69 65 71 Respiratory 24 13 21 Rate Blood Pressure 109/64 96/68 O2 Sat by Pulse 93 93 93 Oximetry 09/08/20 22:45 Pulse Rate 68 Respiratory 11 L Rate Blood Pressure 96/68 O2 Sat by Pulse 95 Oximetry - Reevaluation(s) Reevaluation #1: Initial evaluation done. Patient found to be in SVT. Patient given Cardizem push and patient's heart rate improved. Patient then placed on a Cardizem drip and her heart rate dropped to 60-70. Patient states she feels much better. 09/08/20 21:20 Reevaluation #2: Patient states she is feeling much better. 09/08/20 22:01 Reevaluation #3: I discussed all results with patient. I discussed plan of care with patient. Patient agrees with plan of care and admission. Patient to be admitted to the hospitalist service. 09/08/20 22:45 - Consultations Consultation #1: Hospitalist consulted for admission. Hospitalist to admit patient. 09/08/20 22:46 ED Medical Decision Making - Lab Data Result diagrams: 09/08/20 21:19 09/08/20 21:19 - EKG Data -: EKG Interpreted by Me EKG shows normal: sinus rhythm, intervals, ST-T waves Rate: normal - EKG Data Interpretation: other (Right bundle branch block, axis deviation) - Radiology Data Radiology results: report reviewed, image reviewed interpreted by me: Chest x-ray: No pneumonia, no pneumothorax, no foreign body, no osseous findings, no acute findings - Medical Decision Making Patient is a 70-year-old female who presents emergency room with complaints of palpitations shortness of breath. Patient has history of SVT in the past. Patient is currently on metoprolol. Patient has been taking her metoprolol as prescribed. Patient brought in by EMS. Report received from EMS. Patient given Cardizem IV push and placed on a Cardizem drip and her rate converted. Patient given IV fluids. Patient had labs done which were essentially unremarkable. Patient admitted to the hospitalist service for further evaluation and treatment and admitted to the ICU. Critical care time documented due to the multiple reassessments, prolonged time at the bedside, interpretation of diagnostics and labs. - Differential Diagnosis SVT, palpitations, shortness of breath, dehydration, Critical Care Time: Yes Critical care time in (mins) excluding proc time.: 35 Critical care attestation.: If time is entered above; I have spent that time in minutes in the direct care of this critically ill patient, excluding procedure time. Critical Care Time: 35 minutes ED Disposition Clinical Impression: SVT (supraventricular tachycardia), SOB (shortness of breath), Heart palpitations, Renal insufficiency, RBBB Disposition: DC-09 OP ADMIT IP TO THIS HOSP Is pt being admited?: Yes Does the pt Need Aspirin: No Condition: Critical Time of Disposition: 22:49
[2020-09-08 21:49] LABS: Basophils % (Auto) 1.3 % (0.0-1.8); Eosinophils % (Auto) 4.9 % (0.0-4.3); Hemoglobin 16.2 gm/dl (10.1-14.3); Lymphocytes # (Auto) 3.2 K/mm3 (1.2-5.4); Lymphocytes % (Auto) 30.6 % (13.4-35.0); Mean Corpuscular HGB Conc 33 % (30-34); Mean Corpuscular Volume 100 fl (79-97); Monocytes % (Auto) 4.6 % (0.0-7.3); Platelet Count 246 K/mm3 (140-440); Red Blood Count 4.89 M/mm3 (3.65-5.03); Red Cell Distribution Width 15.1 % (13.2-15.2)
[2020-09-08 21:50] LABS: Basophils # (Auto) 0.1 K/mm3 (0.0-0.1); Eosinophils # (Auto) 0.5 K/mm3 (0.0-0.4); Monocytes # (Auto) 0.5 K/mm3 (0.0-0.8)
[2020-09-08] MEDS ORDERED: dilTIAZem/D5W 100 MG/100 ML BAG IV SCH (22:00)
--- NOTE | 2020-09-08 22:08 | XRay Report ---
CHEST 1 VIEW 09/08/2020 9:22 PM INDICATION / CLINICAL INFORMATION: sob. COMPARISON: 09/05/2019 FINDINGS: SUPPORT DEVICES: None. HEART / MEDIASTINUM: Stable. LUNGS / PLEURA: Coarsened interstitial pulmonary markings similar to prior exam. Mild central pulmona ry vascular congestion unchanged. No confluent infiltrates or pleural effusions. No pneumothorax. ADDITIONAL FINDINGS: No significant additional findings. IMPRESSION: 1. No significant interval change since 09/05/2019. Signer Name: Steve Felzi MD Signed: 09/08/2020 10:03 PM Workstation Name: [id number]
[2020-09-08 22:17] LABS: Alanine Aminotransferase 14 units/L (7-56); Albumin 3.8 g/dL (3.9-5); BUN/Creatinine Ratio 10; Blood Urea Nitrogen 13 mg/dL (7-17); Calcium 9.9 mg/dL (8.4-10.2); Hemolysis Index 66
[2020-09-08] MEDS ORDERED: ONDANSETRON 4 MG/2 ML INJ IV PRN (23:03)
[2020-09-08] MEDS ORDERED: MAGNESIUM HYDROXIDE (MOM) ORAL LIQD UDC PO PRN (23:03)
[2020-09-08] MEDS ORDERED: MORPHINE 2 MG/1 ML INJ IV PRN (23:03)
--- NOTE | 2020-09-08 23:18 | History and Physical Report ---
History of Present Illness Date of examination: 09/08/20 Date of admission: 09/08/2020 Chief complaint: Palpitations and shortness of breath. History of present illness: 70-year-old female with known history of hypertension, diabetes mellitus, hypertension and seizure disorder presenting in the emergency room today complaining of shortness of breath and palpitations which has been ongoing for about 45 minutes prior to arrival in the emergency room. Patient denies any chest pain, no cough, no nausea or vomiting, no abdominal pain, no diarrhea, no hematuria or dysuria. Symptoms gets worse upon exertion and improves upon resting. She had similar episodes when she was sick with Covid in the past. At that time patient was started on metoprolol. She indicates she has been compliant with her medication. EMS could not initiate IV medication en route to the hospital as an IV line could not be started. Vagal maneuvers were done with no significant improvement . Upon arrival in the emergency room patient was in SVT with rates of about 180. Patient was given IV Cardizem and subsequently started on Cardizem drip. Work-up in the emergency room including chest x-ray, labs including TSH were unremarkable. Patient has been admitted with SVT. Past History Past Medical History: arthritis, hypertension, seizures Past Surgical History: hysterectomy, Other (Tonsillectomy) Social history: no significant social history Family history: no significant family history Medications and Allergies Allergies Allergy/AdvReac Type Severity Reaction Status Date / Time No Known Allergies Allergy Verified 10/22/15 09:48 Home Medications Medication Instructions Recorded Confirmed Last Taken Type Amitriptyline [Elavil] 25 mg PO QHS 09/01/19 09/09/20 09/07/20 22:00 History 25 Divalproex ER [Depakote ER] 250 mg PO BID 09/01/19 09/09/20 09/08/20 10:00 History 250 Lisinopril [Zestril TAB] 2.5 mg PO QDAY 09/01/19 09/09/20 09/08/20 10:00 History 2.5 Sitagliptin Phosphate [Januvia] 100 mg PO DAILY 09/01/19 09/09/20 09/08/20 10:00 History 100 Metoprolol [Lopressor TAB] 25 mg PO BID #60 tablet 09/09/19 09/09/20 09/08/20 10:00 Rx 25 Aspirin [Adult Aspirin] 81 tab PO DAILY 09/09/20 09/09/20 09/08/20 10:00 History 81 Varenicline Tartrate [Chantix] 1 tab PO BID 09/09/20 09/09/20 09/08/20 18:00 History 1 amLODIPine 2.5 mg PO DAILY 09/09/20 09/09/20 09/08/20 10:00 History 2.5 hydroCHLOROthiazide 25 mg PO DAILY 09/09/20 09/09/20 09/08/20 10:00 History [Hydrochlorothiazide] 1 Active Meds: Active Medications Diltiazem HCl (Cardizem/D5w 100mg/100ml) 100 mg in 100 mls @ 5 mls/hr IV TITR EYAD; Protocol Last Admin: 09/08/20 21:43 Dose: 5 mg/hr, 5 mls/hr Documented by: Magnesium Hydroxide (Magnesium Hydroxide (Mom) Oral Liqd Udc) 30 ml PO Q4H PRN PRN Reason: Constipation Morphine Sulfate (Morphine 2 Mg/1 Ml Inj) 2 mg IV Q4H PRN PRN Reason: Pain, Moderate (4-6) Sodium Chloride (Sodium Chloride 0.9% 10 Ml Flush Syringe) 10 ml IV BID EYAD Sodium Chloride (Sodium Chloride 0.9% 10 Ml Flush Syringe) 10 ml IV PRN PRN PRN Reason: LINE FLUSH Review of Systems Constitutional: no fever, no chills Ears, nose, mouth and throat: no nasal congestion, no sore throat Cardiovascular: palpitations, no chest pain Respiratory: no cough, no shortness of breath Gastrointestinal: no abdominal pain, no nausea, no vomiting, no diarrhea Genitourinary Female: no pelvic pain, no flank pain, no dysuria, no hematuria Musculoskeletal: no neck pain, no low back pain Integumentary: no rash, no pruritis Neurological: no headaches, no confusion Psychiatric: no anxiety, no depression Endocrine: no polyphagia, no polydipsia, no polyuria, no nocturia Exam - Constitutional Vitals: Temp Pulse Resp BP Pulse Ox 68 11 L 96/68 95 09/08/20 22:45 09/08/20 22:45 09/08/20 22:45 09/08/20 22:45 General appearance: Present: no acute distress, well-nourished - EENT Eyes: Present: PERRL, EOM intact. Absent: scleral icterus ENT: hearing intact, clear oral mucosa, dentition normal - Neck Neck: Present: supple, normal ROM - Respiratory Respiratory effort: normal Respiratory: bilateral: CTA - Cardiovascular Rhythm: irregularly irregular Heart Sounds: Present: S1 & S2. Absent: gallop, systolic murmur, diastolic murmur, rub, click - Extremities Extremities: no ischemia, pulses intact, pulses symmetrical, normal temperature, normal color, Full ROM Extremity abnormal: edema (Trace bilateral ankle edema) Peripheral Pulses: within normal limits - Abdominal General gastrointestinal: Present: soft, non-tender, non-distended, normal bowel sounds. Absent: mass - Integumentary Integumentary: Present: clear, warm, dry. Absent: rash - Musculoskeletal Musculoskeletal: strength equal bilaterally - Psychiatric Psychiatric: appropriate mood/affect, intact judgment & insight, memory intact, cooperative - Neurologic Neurologic: CNII-XII intact, no focal deficits, moves all extremities HEART Score - HEART Score Troponin: Troponin T < 0.010 ng/mL (0.00-0.029) 09/08/20 21:19 Results - Labs CBC & Chem 7: 09/08/20 21:19 09/08/20 21:19 Labs: Abnormal lab results 09/08/20 09/08/20 Range/Units 21:19 21:19 Hgb 16.2 H (10.1-14.3) gm/dl Hct 49.0 H (30.3-42.9) % MCV 100 H (79-97) fl MCH 33 H (28-32) pg Eos % (Auto) 4.9 H (0.0-4.3) % Eos # (Auto) 0.5 H (0.0-0.4) K/mm3 Chloride 96.7 L (98-107) mmol/L Creatinine 1.3 H (0.6-1.2) mg/dL Glucose 122 H (65-100) mg/dL Albumin 3.8 L (3.9-5) g/dL Assessment and Plan - Patient Problems (1) SVT (supraventricular tachycardia) Current Visit: Yes Status: Acute Plan to address problem: Patient has been started on Cardizem drip. Patient will be scheduled for echocardiogram. Will await further evaluation and recommendation from cardiology. (2) HTN (hypertension) Current Visit: No Status: Chronic Plan to address problem: We will resume routine home medications and monitor vital signs closely. (3) Diabetes Current Visit: No Status: Chronic Plan to address problem: We will monitor Accu-Cheks. (4) History of seizure Current Visit: No Status: Chronic Plan to address problem: Patient will be placed on seizure precautions. (5) DVT prophylaxis Current Visit: Yes Status: Acute Plan to address problem: Patient placed on anticoagulation. (6) Full code status Current Visit: Yes Status: Acute Plan to address problem: Patient is full code.
[2020-09-09] MEDS: HEPARIN 5,000 UNIT/1 ML VIAL SUB-Q SCH ×3 (05:44→21:09)
[2020-09-09 07:57] LABS: Hemoglobin 14.2 gm/dl (10.1-14.3); Mean Corpuscular HGB Conc 33 % (30-34); Mean Corpuscular Volume 97 fl (79-97); Platelet Count 221 K/mm3 (140-440); Red Blood Count 4.41 M/mm3 (3.65-5.03); Red Cell Distribution Width 14.3 % (13.2-15.2)
[2020-09-09] MEDS ORDERED: ACETAMINOPHEN 325 MG TAB PO PRN (08:00)
[2020-09-09 08:08] LABS: INR 1.04 (0.87-1.13)
[2020-09-09 08:21] LABS: BUN/Creatinine Ratio 13; Blood Urea Nitrogen 13 mg/dL (7-17); Calcium 9.3 mg/dL (8.4-10.2); Hemolysis Index 32
[2020-09-09] MEDS ORDERED: VARENICLINE TARTRATE PO SCH (10:00)
[2020-09-09] MEDS ORDERED: NON-FORMULARY EACH (Lisinopril [Zestril Tab] 2.5 MG Tablet) PO SCH (10:00)
[2020-09-09] MEDS ORDERED: METOPROLOL TARTRATE 25 MG TAB PO SCH ×2 (10:00→22:00)
[2020-09-09] MEDS ORDERED: LISINOPRIL 5 MG TAB PO SCH (10:00)
[2020-09-09] MEDS ORDERED: ASPIRIN EC 81 MG TAB PO SCH (10:00)
[2020-09-09] MEDS ORDERED: hydroCHLOROthiazide 25 MG TAB PO SCH (10:00)
[2020-09-09] MEDS ORDERED: NON-FORMULARY EACH (Hydrochlorothiazide [Hydrochlorothiazide] 50 MG Tablet) PO SCH (10:00)
[2020-09-09] MEDS ORDERED: amLODIPine 5 MG TAB PO SCH (10:00)
[2020-09-09] MEDS: DIVALPROEX ER 250 MG TAB PO SCH ×2 (10:13→21:08)
--- NOTE | 2020-09-09 11:45 | Electrocardiograph Report ---
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
[2020-09-09] MEDS ORDERED: oxyCODONE /ACETAMINOPHEN 5-325MG TAB PO PRN (12:00)
--- NOTE | 2020-09-09 13:23 | Consultation ---
History of Present Illness Consult date: 09/09/20 Requesting physician: WENDY ABARCA Consult reason: arrhythmia, tachycardia History of present illness: This pt is a 70 year old female with a significant hx of HTN, DM, seizure disorder, and hx of covid 19 infection. She is previously unknown to our practice. She is followed by Dr Man Momin. Pt presdnted to [facility] via EMS with a complaint of SOB, palpitations. She was found to be in SVT HR180 and was subsequently converted to sinus rhythm with cardizem bolus and gtt. Pt denied any weakness, dizziness, CP, cough, abd pain, N/V/D, recent illness or exposures. She has no prior hx of SVT, CVA, AMI, or other cardiac condition. Cardiology is consulted for tachy arrhythmia. At time of interview pt is resting comfortably in bed, no SOB, no CP. Echo reviewed (08/2019): EF 35-40. Mild LVH. LVSF mod decreased. Past History Past Medical History: arthritis, hypertension, seizures Past Surgical History: hysterectomy, Other (Tonsillectomy) Social history: no significant social history Family history: no significant family history Medications and Allergies Allergies Allergy/AdvReac Type Severity Reaction Status Date / Time No Known Allergies Allergy Verified 10/22/15 09:48 Home Medications Medication Instructions Recorded Confirmed Last Taken Type Amitriptyline [Elavil] 25 mg PO QHS 09/01/19 09/09/20 09/07/20 22:00 History 25 Divalproex ER [Depakote ER] 250 mg PO BID 09/01/19 09/09/20 09/08/20 10:00 History 250 Lisinopril [Zestril TAB] 2.5 mg PO QDAY 09/01/19 09/09/20 09/08/20 10:00 History 2.5 Sitagliptin Phosphate [Januvia] 100 mg PO DAILY 09/01/19 09/09/20 09/08/20 10:00 History 100 Metoprolol [Lopressor TAB] 25 mg PO BID #60 tablet 09/09/19 09/09/20 09/08/20 10:00 Rx 25 Aspirin [Adult Aspirin] 81 tab PO DAILY 09/09/20 09/09/20 09/08/20 10:00 History 81 Varenicline Tartrate [Chantix] 1 tab PO BID 09/09/20 09/09/20 09/08/20 18:00 History 1 amLODIPine 2.5 mg PO DAILY 09/09/20 09/09/20 09/08/20 10:00 History 2.5 hydroCHLOROthiazide 25 mg PO DAILY 09/09/20 09/09/20 09/08/20 10:00 History [Hydrochlorothiazide] 1 Active Meds: Active Medications Acetaminophen (Acetaminophen 325 Mg Tab) 650 mg PO Q6H PRN PRN Reason: Pain, Mild (1-3) Last Admin: 09/09/20 08:15 Dose: 650 mg Documented by: Amitriptyline HCl (Amitriptyline 25 Mg Tab) 25 mg PO QHS [facility] Amlodipine Besylate (Amlodipine 5 Mg Tab) 2.5 mg PO DAILY [facility] Last Admin: 09/09/20 09:15 Dose: 2.5 mg Documented by: Aspirin (Aspirin Ec 81 Mg Tab) 81 mg PO DAILY [facility] Last Admin: 09/09/20 09:14 Dose: 81 mg Documented by: Divalproex Sodium (Divalproex Er 250 Mg Tab) 250 mg PO BID [facility] Last Admin: 09/09/20 10:13 Dose: 250 mg Documented by: Heparin Sodium (Porcine) (Heparin 5,000 Unit/1 Ml Vial) 5,000 unit SUB-Q Q8HR [facility] Last Admin: 09/09/20 05:44 Dose: 5,000 unit Documented by: Hydrochlorothiazide (Hydrochlorothiazide 25 Mg Tab) 25 mg PO QDAY [facility] Last Admin: 09/09/20 09:15 Dose: 25 mg Documented by: Lisinopril (Lisinopril 5 Mg Tab) 2.5 mg PO QDAY [facility] Last Admin: 09/09/20 09:15 Dose: 2.5 mg Documented by: Magnesium Hydroxide (Magnesium Hydroxide (Mom) Oral Liqd Udc) 30 ml PO Q4H PRN PRN Reason: Constipation Metoprolol Tartrate (Metoprolol Tartrate 25 Mg Tab) 50 mg PO BID [facility] Miscellaneous Medication (Varenicline Tartrate [Chantix]) 1 tab PO BID [facility] Morphine Sulfate (Morphine 2 Mg/1 Ml Inj) 2 mg IV Q4H PRN PRN Reason: Pain, Moderate (4-6) Ondansetron HCl (Ondansetron 4 Mg/2 Ml Inj) 4 mg IV Q8H PRN PRN Reason: Nausea And Vomiting Oxycodone/Acetaminophen (Oxycodone /Acetaminophen 5-325mg Tab) 1 tab PO Q6HR PRN PRN Reason: Pain, Moderate (4-6) Last Admin: 09/09/20 10:12 Dose: 1 tab Documented by: Sodium Chloride (Sodium Chloride 0.9% 10 Ml Flush Syringe) 10 ml IV BID [facility] Last Admin: 09/09/20 09:20 Dose: Not Given Documented by: Sodium Chloride (Sodium Chloride 0.9% 10 Ml Flush Syringe) 10 ml IV PRN PRN PRN Reason: LINE FLUSH Review of Systems Constitutional: no weight loss, no weight gain, no fever, no chills, no sweats Ears, nose, mouth and throat: no ear pain, no ear discharge, no nasal congest ion, no nasal discharge, no sinus pressure Cardiovascular: palpitations, shortness of breath, no chest pain, no orthopnea, no rapid/irregular heart beat, no edema, no syncope, no lightheadedness Respiratory: no cough, no cough with sputum, no hemoptysis, no shortness of breath, no dyspnea on exertion Gastrointestinal: no abdominal pain, no nausea, no vomiting, no diarrhea, no constipation Genitourinary Female: no pelvic pain, no flank pain Musculoskeletal: no neck stiffness, no neck pain, no shooting arm pain, no arm numbness/tingling, no low back pain, no shooting leg pain Integumentary: no rash, no pruritis, no redness, no sores, no wounds Neurological: no head injury, no paralysis, no weakness, no parathesias, no numbness, no tingling, no seizures, no syncope Psychiatric: no anxiety Endocrine: no cold intolerance, no heat intolerance Hematologic/Lymphatic: no easy bruising, no easy bleeding Allergic/Immunologic: no urticaria Physical Examination Last Vital Signs Temp 98.7 F 09/09/20 12:22 Pulse 58 L 09/09/20 12:00 Resp 15 09/09/20 12:00 BP 132/66 09/09/20 12:00 Pulse Ox 92 09/09/20 12:00 General appearance: no acute distress HEENT: Positive: PERRL, Normocephaly, Mucus Membranes Moist Neck: Positive: neck supple, trachea midline Cardiac: Positive: Reg Rate and Rhythm, S1/S2 Lungs: Positive: clear to auscultation, Normal Breath Sounds Neuro: Positive: Grossly Intact Abdomen: Positive: Unremarkable, Soft Skin: Negative: Rash, Wound Musculoskeletal: No Pain Extremities: Present: upper extr. pulses, lower extr. pulses. Absent: edema Results 09/09/20 07:24 09/09/20 07:24 Cardiac Enzymes 09/08/20 Range/Units 21:19 AST 24 (5-40) units/L Coagulation 09/09/20 Range/Units 07:24 PT 13.5 (12.2-14.9) Sec. INR 1.04 (0.87-1.13) CBC 09/08/20 09/09/20 Range/Units 21:19 07:24 WBC 10.6 11.7 H (4.5-11.0) K/mm3 RBC 4.89 4.41 (3.65-5.03) M/mm3 Hgb 16.2 H 14.2 (10.1-14.3) gm/dl Hct 49.0 H 43.0 H D (30.3-42.9) % Plt Count 246 221 (140-440) K/mm3 Lymph # (Auto) 3.2 (1.2-5.4) K/mm3 [place] # (Auto) 0.5 (0.0-0.8) K/mm3 Eos # (Auto) 0.5 H (0.0-0.4) K/mm3 Baso # (Auto) 0.1 (0.0-0.1) K/mm3 Comprehensive Metabolic Panel 09/08/20 09/09/20 Range/Units 21:19 07:24 Sodium 137 136 L (137-145) mmol/L Potassium 3.8 3.7 (3.6-5.0) mmol/L Chloride 96.7 L 99.5 (98-107) mmol/L Carbon Dioxide 23 28 (22-30) mmol/L BUN 13 13 (7-17) mg/dL Creatinine 1.3 H 1.0 (0.6-1.2) mg/dL Glucose 122 H 100 (65-100) mg/dL Calcium 9.9 9.3 (8.4-10.2) mg/dL AST 24 (5-40) units/L ALT 14 (7-56) units/L Alkaline Phosphatase 113 (35-129) units/L Total Protein 7.3 (6.3-8.2) g/dL Albumin 3.8 L (3.9-5) g/dL - Imaging and Cardiology Echo: report reviewed (Echo reviewed (08/2019): EF 35-40. Mild LVH. LVSF mod decreased.), image reviewed EKG: report reviewed, image reviewed EKG interpretations - Telemetry EKG Rhythm: Sinus Rhythm - EKG Sinus rhythms and dysrhythmias: sinus rhythm Assessment and Plan This pt is a 70 year old female with a significant hx of HTN, DM, seizure disorder, and hx of covid 19 infection. She is previously unknown to our practice. She is followed by Dr Man Momin. Pt presented to [facility] via EMS with a complaint of SOB, palpitations. She was found to be in SVT HR180 and was subsequently converted to sinus rhythm with cardizem bolus and gtt. Pt denied any weakness, dizziness, CP, cough, abd pain, N/V/D, recent illness or exposures. She has no prior hx of SVT, CVA, AMI, or other cardiac condition. Cardiology is consulted for tachy arrhythmia. At time of interview pt is resting comfortably in bed, no SOB, no CP. Cardiology is consulted for tachycardia/SVT. 12 lead reviewed, no STEMI, RBBB noted. RBBB also present on ECG from 08/2019. Troponin is negative x 1. Continue to trend [place]. Echo reviewed (08/2019): EF 35-40. Mild LVH. LVSF mod decreased. Repeat echo pending. TSH is normal. Optimize BP and HR control. Discontinue Amlodipine. Increase BB Metoprolol 50mg BID and continue ACEI Lisinopril 2.5 in given hx of CMP. For Exercise MPI Stress test in am. repeat bmp in am. NPO after midnight. Continue to monitor on telemetry. Of note pt has hx of Covid 19 infection, Covid PCR is negative. Will follow. This pt was seen in conjunction with Dr Urena who agrees with this assessment and plan of care. - Patient Problems (1) SVT (supraventricular tachycardia) Current Visit: Yes Status: Acute (2) Cardiomyopathy Current Visit: Yes Status: Chronic (3) RBBB Current Visit: Yes Status: Chronic (4) History of seizure Current Visit: Yes Status: Chronic (5) HTN (hypertension) Current Visit: Yes Status: Acute (6) Diabetes Current Visit: Yes Status: Chronic (7) History of COVID-19 Current Visit: Yes Status: Chronic
[2020-09-09 17:19] LABS: Band Neutrophils # (Manual) 0.1 K/mm3; Total Cells Counted 100
[2020-09-09 17:20] LABS: Large Platelets Rare; Platelet Estimate Consistent w Auto; RBC Morphology Normal
--- NOTE | 2020-09-09 17:52 | Progress Note ---
<BRAEDEN AC - Last Filed: 09/09/20 18:23> Assessment and Plan Assessment and plan: This is a 70-year-old female with hypertension, diabetes mellitus, seizure disorder, history of COVID-19 infection was admitted for SVT with heart rate in the 180s. Supraventricular Tachycardia Leukocytosis Acute kidney injury 2/2 vasomotor nephropathy Slight hyponatremia Cardiomyopathy Right bundle branch block Seizures Hypertension Diabetes History of COVID-19 infection -[facility] and cardiology consulted, appreciate recommendations -08/2019 echocardiogram shows ejection fraction of 35 to 40%, mild LVH, left ventricular systolic function moderately decreased. -S/p Cardizem drip now on p.o. metoprolol -Continue home JEAN inhibitor -Cardiac diet -N.p.o. after midnight for exercise MPI stress test in the a.m. on 09/10 -Blood pressure monitor per protocol -Continue home antiseizure medication -Seizure precautions -Trend BMP DVT/GI prophylaxis: Heparin subcu, SCDs to bilateral ultrasound in bed, PPI Disposition: Transfer to floor History Interval history: This is a 70-year-old female with hypertension, diabetes mellitus, seizure disorder, history of COVID-19 infection who presented to emergency department on 09/08 with complaints of strands of breath and palpitations. In the emergency room she was found to be in SVT with heart rate in the 180s subsequently covered with sinus rhythm with Cardizem bolus and initiated on Cardizem drip. Lab work revealed slight hypochloremia and KI. Patient was admitted to the hospital service for further work-up with consultation to cardiology. 09/09: Patient has been transitioned off of Cardizem drip and on p.o. beta- blockers. Cardiology plans to conduct a stress test in the morning. Patient will be n.p.o. after midnight. No acute events reported while in the ICU. Hospitalist Physical - Constitutional Vitals: Temp Pulse Resp BP Pulse Ox 98.4 F 71 14 139/78 96 09/09/20 17:32 09/09/20 17:10 09/09/20 17:10 09/09/20 17:10 09/09/20 17:10 General appearance: Present: no acute distress - EENT Eyes: Present: PERRL, EOM intact ENT: hearing intact, clear oral mucosa, dentition normal - Neck Neck: Present: normal ROM - Respiratory Respiratory effort: normal Respiratory: bilateral: CTA - Cardiovascular Rhythm: regular Heart Sounds: Present: S1 & S2. Absent: systolic murmur, diastolic murmur - Extremities Extremities: no ischemia, pulses intact, pulses symmetrical, No edema, normal temperature, normal color, Full ROM Peripheral Pulses: within normal limits - Abdominal General gastrointestinal: soft, non-tender, non-distended, normal bowel sounds - Integumentary Integumentary: Present: clear, warm, dry - Psychiatric Psychiatric: appropriate mood/affect, cooperative - Neurologic Neurologic: CNII-XII intact, no focal deficits, moves all extremities - Allied Health Allied health notes reviewed: nursing, social work HEART Score - HEART Score Troponin: Troponin T < 0.010 ng/mL (0.00-0.029) 09/08/20 21:19 Results - Labs CBC & Chem 7: 09/09/20 07:24 09/09/20 07:24 Labs: Laboratory Last Values WBC 11.7 K/mm3 (4.5-11.0) H 09/09/20 07:24 RBC 4.41 M/mm3 (3.65-5.03) 09/09/20 07:24 Hgb 14.2 gm/dl (10.1-14.3) 09/09/20 07:24 Hct 43.0 % (30.3-42.9) H D 09/09/20 07:24 MCV 97 fl (79-97) 09/09/20 07:24 MCH 32 pg (28-32) 09/09/20 07:24 MCHC 33 % (30-34) 09/09/20 07:24 RDW 14.3 % (13.2-15.2) 09/09/20 07:24 Plt Count 221 K/mm3 (140-440) 09/09/20 07:24 Lymph % (Auto) 30.6 % (13.4-35.0) 09/08/20 21:19 Menard % (Auto) 4.6 % (0.0-7.3) 09/08/20 21:19 Eos % (Auto) 4.9 % (0.0-4.3) H 09/08/20 21:19 Baso % (Auto) 1.3 % (0.0-1.8) 09/08/20 21:19 Lymph # (Auto) 3.2 K/mm3 (1.2-5.4) 09/08/20 21:19 Menard # (Auto) 0.5 K/mm3 (0.0-0.8) 09/08/20 21:19 Eos # (Auto) 0.5 K/mm3 (0.0-0.4) H 09/08/20 21:19 Baso # (Auto) 0.1 K/mm3 (0.0-0.1) 09/08/20 21:19 Add Manual Diff Complete 09/09/20 07:24 Total Counted 100 09/09/20 07:24 Seg Neutrophils % 58.6 % (40.0-70.0) 09/08/20 21:19 Seg Neuts % (Manual) 69.0 % (40.0-70.0) 09/09/20 07:24 Band Neutrophils % 1.0 % 09/09/20 07:24 Lymphocytes % (Manual) 19.0 % (13.4-35.0) 09/09/20 07:24 Monocytes % (Manual) 6.0 % (0.0-7.3) 09/09/20 07:24 Eosinophils % (Manual) 5.0 % (0.0-4.3) H 09/09/20 07:24 Nucleated RBC % Not Reportable 09/09/20 07:24 Seg Neutrophils # 6.2 K/mm3 (1.8-7.7) 09/08/20 21:19 Seg Neutrophils # Man 8.1 K/mm3 (1.8-7.7) H 09/09/20 07:24 Band Neutrophils # 0.1 K/mm3 09/09/20 07:24 Lymphocytes # (Manual) 2.2 K/mm3 (1.2-5.4) 09/09/20 07:24 Abs React Lymphs (Man) 0.0 K/mm3 09/09/20 07:24 Monocytes # (Manual) 0.7 K/mm3 (0.0-0.8) 09/09/20 07:24 Eosinophils # (Manual) 0.6 K/mm3 (0.0-0.4) H 09/09/20 07:24 Basophils # (Manual) 0.0 K/mm3 (0.0-0.1) 09/09/20 07:24 Metamyelocytes # 0.0 K/mm3 09/09/20 07:24 Myelocytes # 0.0 K/mm3 09/09/20 07:24 Promyelocytes # 0.0 K/mm3 09/09/20 07:24 Blast Cells # 0.0 K/mm3 09/09/20 07:24 WBC Morphology Not Reportable 09/09/20 07:24 Hypersegmented Neuts Not Reportable 09/09/20 07:24 Hyposegmented Neuts Not Reportable 09/09/20 07:24 Hypogranular Neuts Not Reportable 09/09/20 07:24 Smudge Cells Not Reportable 09/09/20 07:24 Toxic Granulation Not Reportable 09/09/20 07:24 Toxic Vacuolation Not Reportable 09/09/20 07:24 Dohle Bodies Not Reportable 09/09/20 07:24 Pelger-Huet Anomaly Not Reportable 09/09/20 07:24 Emre Rods Not Reportable 09/09/20 07:24 Platelet Estimate Consistent w auto 09/09/20 07:24 Clumped Platelets Not Reportable 09/09/20 07:24 Plt Clumps, EDTA Not Reportable 09/09/20 07:24 Large Platelets Rare 09/09/20 07:24 Giant Platelets Not Reportable 09/09/20 07:24 Platelet Satelliting Not Reportable 09/09/20 07:24 Plt Morphology Comment Not Reportable 09/09/20 07:24 RBC Morphology Normal 09/09/20 07:24 Dimorphic RBCs Not Reportable 09/09/20 07:24 Polychromasia Not Reportable 09/09/20 07:24 Hypochromasia Not Reportable 09/09/20 07:24 Poikilocytosis Not Reportable 09/09/20 07:24 Anisocytosis Not Reportable 09/09/20 07:24 Microcytosis Not Reportable 09/09/20 07:24 Macrocytosis Not Reportable 09/09/20 07:24 Spherocytes Not Reportable 09/09/20 07:24 Pappenheimer Bodies Not Reportable 09/09/20 07:24 Sickle Cells Not Reportable 09/09/20 07:24 Target Cells Not Reportable 09/09/20 07:24 Tear Drop Cells Not Reportable 09/09/20 07:24 Ovalocytes Not Reportable 09/09/20 07:24 Helmet Cells Not Reportable 09/09/20 07:24 [place] Bodies Not Reportable 09/09/20 07:24 [place] Rings Not Reportable 09/09/20 07:24 [place] Cells Not Reportable 09/09/20 07:24 Bite Cells Not Reportable 09/09/20 07:24 Crenated Cell Not Reportable 09/09/20 07:24 Elliptocytes Not Reportable 09/09/20 07:24 Acanthocytes (Spur) Not Reportable 09/09/20 07:24 Rouleaux Not Reportable 09/09/20 07:24 Hemoglobin C Crystals Not Reportable 09/09/20 07:24 Schistocytes Not Reportable 09/09/20 07:24 Malaria parasites Not Reportable 09/09/20 07:24 Bryan Bodies Not Reportable 09/09/20 07:24 Hem Pathologist Commnt No 09/09/20 07:24 PT 13.5 Sec. (12.2-14.9) 09/09/20 07:24 INR 1.04 (0.87-1.13) 09/09/20 07:24 Sodium 136 mmol/L (137-145) L 09/09/20 07:24 Potassium 3.7 mmol/L (3.6-5.0) 09/09/20 07:24 Chloride 99.5 mmol/L (98-107) 09/09/20 07:24 Carbon Dioxide 28 mmol/L (22-30) 09/09/20 07:24 Anion Gap 12 mmol/L 09/09/20 07:24 BUN 13 mg/dL (7-17) 09/09/20 07:24 Creatinine 1.0 mg/dL (0.6-1.2) 09/09/20 07:24 Estimated GFR > 60 ml/min 09/09/20 07:24 BUN/Creatinine Ratio 13 % 09/09/20 07:24 Glucose 100 mg/dL (65-100) 09/09/20 07:24 Calcium 9.3 mg/dL (8.4-10.2) 09/09/20 07:24 Magnesium 1.90 mg/dL (1.7-2.3) 09/09/20 10:35 Total Bilirubin 0.30 mg/dL (0.1-1.2) 09/08/20 21:19 AST 24 units/L (5-40) 09/08/20 21:19 ALT 14 units/L (7-56) 09/08/20 21:19 Alkaline Phosphatase 113 units/L (35-129) 09/08/20 21:19 Troponin T < 0.010 ng/mL (0.00-0.029) 09/08/20 21:19 Total Protein 7.3 g/dL (6.3-8.2) 09/08/20 21:19 Albumin 3.8 g/dL (3.9-5) L 09/08/20 21:19 Albumin/Globulin Ratio 1.1 % 09/08/20 21:19 TSH 4.150 mlU/mL (0.270-4.200) 09/08/20 21:26 Coronavirus (PCR) Negative (Negative) 09/09/20 08:50 [place]ountain/IV: Voiding Method External Female Catheter Active Medications - Current Medications Current Medications: Generic Name Dose Route Start Last Admin Trade Name Freq PRN Reason Stop Dose Admin Acetaminophen 650 mg 09/09/20 08:00 09/09/20 08:15 Acetaminophen 325 Mg Tab PO 650 mg Q6H PRN Administration Pain, Mild (1-3) Amitriptyline HCl 25 mg 09/09/20 22:00 Amitriptyline 25 Mg Tab PO QHS [facility] Aspirin 81 mg 09/09/20 10:00 09/09/20 09:14 Aspirin Ec 81 Mg Tab PO 81 mg DAILY EYAD Administration Divalproex Sodium 250 mg 09/09/20 10:00 09/09/20 10:13 Divalproex Er 250 Mg Tab PO 250 mg BID EYAD Administration Famotidine 20 mg 09/10/20 10:00 Famotidine 20 Mg Tab PO QDAY [facility] Heparin Sodium (Porcine) 5,000 unit 09/09/20 06:00 09/09/20 13:24 Heparin 5,000 Unit/1 Ml Vial SUB-Q 5,000 unit Q8HR EYAD Administration Hydrochlorothiazide 25 mg 09/09/20 10:00 09/09/20 09:15 Hydrochlorothiazide 25 Mg Tab PO 25 mg QDAY EYAD Administration Lisinopril 2.5 mg 09/09/20 10:00 09/09/20 09:15 Lisinopril 5 Mg Tab PO 2.5 mg QDAY EYAD Administration Magnesium Hydroxide 30 ml 09/08/20 23:03 Magnesium Hydroxide (Mom) Oral Liqd Udc PO Q4H PRN Constipation Metoprolol Tartrate 50 mg 09/09/20 22:00 Metoprolol Tartrate 25 Mg Tab PO BID [facility] Miscellaneous Medication 1 tab 09/09/20 10:00 Varenicline Tartrate [Chantix] PO BID [facility] Morphine Sulfate 2 mg 09/08/20 23:03 Morphine 2 Mg/1 Ml Inj IV Q4H PRN Pain, Moderate (4-6) Ondansetron HCl 4 mg 09/08/20 23:03 Ondansetron 4 Mg/2 Ml Inj IV Q8H PRN Nausea And Vomiting Oxycodone/Acetaminophen 1 tab 09/09/20 12:00 09/09/20 10:12 Oxycodone /Acetaminophen 5-325mg Tab PO 1 tab Q6HR PRN Administration Pain, Moderate (4-6) Sodium Chloride 10 ml 09/09/20 10:00 09/09/20 09:20 Sodium Chloride 0.9% 10 Ml Flush Syringe IV Not Given BID EYAD Sodium Chloride 10 ml 09/08/20 23:03 Sodium Chloride 0.9% 10 Ml Flush Syringe IV PRN PRN LINE FLUSH Nutrition/Malnutrition Assess - Dietary Evaluation Nutrition/Malnutrition Findings: Nutrition Notes Start: 09/09/20 12:3 0 Freq: Status: Active Protocol: Document 09/09/20 12:30 CW (Rec: 09/09/20 12:35 CW [id number]) Nutrition Notes Need for Assessment generated from: MD Order,Education Initial or Follow up Brief Note Current Diagnosis Acute Kidney Injury,Diabetes, Heart Failure Other Pertinent Diagnosis SOB Labs/Tests BG 122 on adm Cr 1.3 BP 138/72 on admission Height 5 ft 8 in Weight 96 kg Usual Body Weight 92 kg [place] Body Weight (kg) 63.63 BMI 32.1 Intake Prior to Admission Excellent Weight Status Obese Subjective/Other Information MD consult for diet education. BG WNL on adm. BP slightly elevated. Spoke with pt regarding heart healthy diet. Emphasized importance of monitoring salt and freid foods intakes. Pt reported having no questions. Pt reports moderately stable weight and good appetite. Skin is intact. Burn Absent Trauma Absent GI Symptoms None Current % PO Good (75-100%) Minimum of two criteria No physical signs of malnutrition #1 Nutrition Diagnosis No nutrition diagnosis at this time Nutrition Intervention Change Diet Order: Continue Cardiac diet Teaching Recipient Patient Learning Readiness Good Teaching Methods Discussion Response to Teaching Verbalize understanding Barriers to Learning No Barriers RD phone number provided Yes Patient aware of follow up options Yes Anticipated Discharge Needs: Cardiac Consistent Carbohydrate Diet Revisit per MD consult or patient Sign Off request: Additional Comments S/O for diet education discussed, stable weight, good appetite <RILEY GUSMAN R - Last Filed: 09/10/20 09:14> Assessment and Plan Assessment and plan: I saw and evaluated the patient. I agree with the findings and the plan of care as documented in the Nurse Practitioner's~note, Hospitalist Physical - Constitutional Vitals: Temp Pulse Resp BP Pulse Ox 97.9 F 67 16 138/74 95 09/10/20 04:26 09/10/20 04:26 09/10/20 04:26 09/10/20 04:26 09/10/20 08:51 HEART Score - HEART Score Troponin: Troponin T < 0.010 ng/mL (0.00-0.029) 09/10/20 05:27 Results - Labs CBC & Chem 7: 09/09/20 07:24 09/10/20 05:27 Labs: Laboratory Last Values WBC 11.7 K/mm3 (4.5-11.0) H 09/09/20 07:24 RBC 4.41 M/mm3 (3.65-5.03) 09/09/20 07:24 Hgb 14.2 gm/dl (10.1-14.3) 09/09/20 07:24 Hct 43.0 % (30.3-42.9) H D 09/09/20 07:24 MCV 97 fl (79-97) 09/09/20 07:24 MCH 32 pg (28-32) 09/09/20 07:24 MCHC 33 % (30-34) 09/09/20 07:24 RDW 14.3 % (13.2-15.2) 09/09/20 07:24 Plt Count 221 K/mm3 (140-440) 09/09/20 07:24 Lymph % (Auto) 30.6 % (13.4-35.0) 09/08/20 21:19 Menard % (Auto) 4.6 % (0.0-7.3) 09/08/20 21:19 Eos % (Auto) 4.9 % (0.0-4.3) H 09/08/20 21:19 Baso % (Auto) 1.3 % (0.0-1.8) 09/08/20 21:19 Lymph # (Auto) 3.2 K/mm3 (1.2-5.4) 09/08/20 21:19 [place] # (Auto) 0.5 K/mm3 (0.0-0.8) 09/08/20 21:19 Eos # (Auto) 0.5 K/mm3 (0.0-0.4) H 09/08/20 21:19 Baso # (Auto) 0.1 K/mm3 (0.0-0.1) 09/08/20 21:19 Add Manual Diff Complete 09/09/20 07:24 Total Counted 100 09/09/20 07:24 Seg Neutrophils % 58.6 % (40.0-70.0) 09/08/20 21:19 Seg Neuts % (Manual) 69.0 % (40.0-70.0) 09/09/20 07:24 Band Neutrophils % 1.0 % 09/09/20 07:24 Lymphocytes % (Manual) 19.0 % (13.4-35.0) 09/09/20 07:24 Monocytes % (Manual) 6.0 % (0.0-7.3) 09/09/20 07:24 Eosinophils % (Manual) 5.0 % (0.0-4.3) H 09/09/20 07:24 Nucleated RBC % Not Reportable 09/09/20 07:24 Seg Neutrophils # 6.2 K/mm3 (1.8-7.7) 09/08/20 21:19 Seg Neutrophils # Man 8.1 K/mm3 (1.8-7.7) H 09/09/20 07:24 Band Neutrophils # 0.1 K/mm3 09/09/20 07:24 Lymphocytes # (Manual) 2.2 K/mm3 (1.2-5.4) 09/09/20 07:24 Abs React Lymphs (Man) 0.0 K/mm3 09/09/20 07:24 Monocytes # (Manual) 0.7 K/mm3 (0.0-0.8) 09/09/20 07:24 Eosinophils # (Manual) 0.6 K/mm3 (0.0-0.4) H 09/09/20 07:24 Basophils # (Manual) 0.0 K/mm3 (0.0-0.1) 09/09/20 07:24 Metamyelocytes # 0.0 K/mm3 09/09/20 07:24 Myelocytes # 0.0 K/mm3 09/09/20 07:24 Promyelocytes # 0.0 K/mm3 09/09/20 07:24 Blast Cells # 0.0 K/mm3 09/09/20 07:24 WBC Morphology Not Reportable 09/09/20 07:24 Hypersegmented Neuts Not Reportable 09/09/20 07:24 Hyposegmented Neuts Not Reportable 09/09/20 07:24 Hypogranular Neuts Not Reportable 09/09/20 07:24 Smudge Cells Not Reportable 09/09/20 07:24 Toxic Granulation Not Reportable 09/09/20 07:24 Toxic Vacuolation Not Reportable 09/09/20 07:24 Dohle Bodies Not Reportable 09/09/20 07:24 Pelger-Huet Anomaly Not Reportable 09/09/20 07:24 Emre Rods Not Reportable 09/09/20 07:24 Platelet Estimate Consistent w auto 09/09/20 07:24 Clumped Platelets Not Reportable 09/09/20 07:24 Plt Clumps, EDTA Not Reportable 09/09/20 07:24 Large Platelets Rare 09/09/20 07:24 Giant Platelets Not Reportable 09/09/20 07:24 Platelet Satelliting Not Reportable 09/09/20 07:24 Plt Morphology Comment Not Reportable 09/09/20 07:24 RBC Morphology Normal 09/09/20 07:24 Dimorphic RBCs Not Reportable 09/09/20 07:24 Polychromasia Not Reportable 09/09/20 07:24 Hypochromasia Not Reportable 09/09/20 07:24 Poikilocytosis Not Reportable 09/09/20 07:24 Anisocytosis Not Reportable 09/09/20 07:24 Microcytosis Not Reportable 09/09/20 07:24 Macrocytosis Not Reportable 09/09/20 07:24 Spherocytes Not Reportable 09/09/20 07:24 Pappenheimer Bodies Not Reportable 09/09/20 07:24 Sickle Cells Not Reportable 09/09/20 07:24 Target Cells Not Reportable 09/09/20 07:24 Tear Drop Cells Not Reportable 09/09/20 07:24 Ovalocytes Not Reportable 09/09/20 07:24 Helmet Cells Not Reportable 09/09/20 07:24 [place] Bodies Not Reportable 09/09/20 07:24 [place] Rings Not Reportable 09/09/20 07:24 [place] Cells Not Reportable 09/09/20 07:24 Bite Cells Not Reportable 09/09/20 07:24 Crenated Cell Not Reportable 09/09/20 07:24 Elliptocytes Not Reportable 09/09/20 07:24 Acanthocytes (Spur) Not Reportable 09/09/20 07:24 Rouleaux Not Reportable 09/09/20 07:24 Hemoglobin C Crystals Not Reportable 09/09/20 07:24 Schistocytes Not Reportable 09/09/20 07:24 Malaria parasites Not Reportable 09/09/20 07:24 Bryan Bodies Not Reportable 09/09/20 07:24 Hem Pathologist Commnt No 09/09/20 07:24 PT 13.5 Sec. (12.2-14.9) 09/09/20 07:24 INR 1.04 (0.87-1.13) 09/09/20 07:24 Sodium 135 mmol/L (137-145) L 09/10/20 05:27 Potassium 3.8 mmol/L (3.6-5.0) 09/10/20 05:27 Chloride 97.9 mmol/L (98-107) L 09/10/20 05:27 Carbon Dioxide 27 mmol/L (22-30) 09/10/20 05:27 Anion Gap 14 mmol/L 09/10/20 05:27 BUN 15 mg/dL (7-17) 09/10/20 05:27 Creatinine 1.0 mg/dL (0.6-1.2) 09/10/20 05:27 Estimated GFR > 60 ml/min 09/10/20 05:27 BUN/Creatinine Ratio 15 % 09/10/20 05:27 Glucose 99 mg/dL (65-100) 09/10/20 05:27 Calcium 9.2 mg/dL (8.4-10.2) 09/10/20 05:27 Magnesium 1.90 mg/dL (1.7-2.3) 09/09/20 10:35 Total Bilirubin 0.30 mg/dL (0.1-1.2) 09/08/20 21:19 AST 24 units/L (5-40) 09/08/20 21:19 ALT 14 units/L (7-56) 09/08/20 21:19 Alkaline Phosphatase 113 units/L (35-129) 09/08/20 21:19 Troponin T < 0.010 ng/mL (0.00-0.029) 09/10/20 05:27 Total Protein 7.3 g/dL (6.3-8.2) 09/08/20 21:19 Albumin 3.8 g/dL (3.9-5) L 09/08/20 21:19 Albumin/Globulin Ratio 1.1 % 09/08/20 21:19 TSH 4.150 mlU/mL (0.270-4.200) 09/08/20 21:26 Coronavirus (PCR) Negative (Negative) 09/09/20 08:50 [place]/IV: Voiding Method External Female Catheter Active Medications - Current Medications Current Medications: Generic Name Dose Route Start Last Admin Trade Name Freq PRN Reason Stop Dose Admin Acetaminophen 650 mg 09/09/20 08:00 09/09/20 08:15 Acetaminophen 325 Mg Tab PO 650 mg Q6H PRN Administration Pain, Mild (1-3) Amitriptyline HCl 25 mg 09/09/20 22:00 09/09/20 21:08 Amitriptyline 25 Mg Tab PO 25 mg QHS EYAD Administration Aspirin 81 mg 09/09/20 10:00 09/09/20 09:14 Aspirin Ec 81 Mg Tab PO 81 mg DAILY EYAD Administration Divalproex Sodium 250 mg 09/09/20 10:00 09/09/20 21:08 Divalproex Er 250 Mg Tab PO 250 mg BID EYAD Administration Famotidine 20 mg 09/10/20 10:00 Famotidine 20 Mg Tab PO QDAY EYAD Heparin Sodium (Porcine) 5,000 unit 09/09/20 06:00 09/10/20 06:30 Heparin 5,000 Unit/1 Ml Vial SUB-Q 5,000 unit Q8HR EYAD Administration Hydrochlorothiazide 25 mg 09/09/20 10:00 09/09/20 09:15 Hydrochlorothiazide 25 Mg Tab PO 25 mg QDAY EYAD Administration Lisinopril 2.5 mg 09/09/20 10:00 09/09/20 09:15 Lisinopril 5 Mg Tab PO 2.5 mg QDAY EYAD Administration Magnesium Hydroxide 30 ml 09/08/20 23:03 Magnesium Hydroxide (Mom) Oral Liqd Udc PO Q4H PRN Constipation Metoprolol Tartrate 50 mg 09/09/20 22:00 09/09/20 21:08 Metoprolol Tartrate 25 Mg Tab PO 50 mg BID EYAD Administration Miscellaneous Medication 1 tab 09/09/20 10:00 Varenicline Tartrate [Chantix] PO BID EYAD Morphine Sulfate 2 mg 09/08/20 23:03 Morphine 2 Mg/1 Ml Inj IV Q4H PRN Pain, Moderate (4-6) Ondansetron HCl 4 mg 09/08/20 23:03 Ondansetron 4 Mg/2 Ml Inj IV Q8H PRN Nausea And Vomiting Oxycodone/Acetaminophen 1 tab 09/09/20 12:00 09/09/20 10:12 Oxycodone /Acetaminophen 5-325mg Tab PO 1 tab Q6HR PRN Administration Pain, Moderate (4-6) Sodium Chloride 10 ml 09/09/20 10:00 09/09/20 21:09 Sodium Chloride 0.9% 10 Ml Flush Syringe IV 10 ml BID EYAD Administration Sodium Chloride 10 ml 09/08/20 23:03 Sodium Chloride 0.9% 10 Ml Flush Syringe IV PRN PRN LINE FLUSH Nutrition/Malnutrition Assess - Dietary Evaluation Nutrition/Malnutrition Findings: Nutrition Notes Start: 09/09/20 12:30 Freq: Status: Active Protocol: Document 09/09/20 12:30 CW (Rec: 09/09/20 12:35 CW [id number]) Nutrition Notes Need for Assessment generated from: MD Order,Education Initial or Follow up Brief Note Current Diagnosis Acute Kidney Injury,Diabetes, Heart Failure Other Pertinent Diagnosis SOB Labs/Tests BG 122 on adm Cr 1.3 BP 138/72 on admission Height 5 ft 8 in Weight 96 kg Usual Body Weight 92 kg [place] Body Weight (kg) 63.63 BMI 32.1 Intake Prior to Admission Excellent Weight Status Obese Subjective/Other Information MD consult for diet education. BG WNL on adm. BP slightly elevated. Spoke with pt regarding heart healthy diet. Emphasized importance of monitoring salt and freid foods intakes. Pt reported having no questions. Pt reports moderately stable weight and good appetite. Skin is intact. Burn Absent Trauma Absent GI Symptoms None Current % PO Good (75-100%) Minimum of two criteria No physical signs of malnutrition #1 Nutrition Diagnosis No nutrition diagnosis at this time Nutrition Intervention Change Diet Order: Continue Cardiac diet Teaching Recipient Patient Learning Readiness Good Teaching Methods Discussion Response to Teaching Verbalize understanding Barriers to Learning No Barriers RD phone number provided Yes Patient aware of follow up options Yes Anticipated Discharge Needs: Cardiac Consistent Carbohydrate Diet Revisit per MD consult or patient Sign Off request: Additional Comments S/O for diet education discussed, stable weight, good appetite
--- NOTE | 2020-09-09 18:24 | Consultation ---
History of Present Illness Consult date: 09/09/20 Requesting physician: WENDY ABARCA Reason for consult: other (SVT on cardizem) History of present illness: PULMONARY/CCM CONSULT NOTE (Full dictation # [id number]) Please see dictated notes for full details Past History Past Medical History: arthritis, hypertension, seizures Past Surgical History: hysterectomy, Other (Tonsillectomy) Social history: no significant social history Family history: no significant family history Medications and Allergies Allergies Allergy/AdvReac Type Severity Reaction Status Date / Time No Known Allergies Allergy Verified 10/22/15 09:48 Home Medications Medication Instructions Recorded Confirmed Last Taken Type RX: Amitriptyline [Elavil] 25 mg PO QHS 09/01/19 09/09/20 09/07/20 22:00 History 25 RX: Divalproex ER [Depakote ER] 250 mg PO BID 09/01/19 09/09/20 09/08/20 10:00 History 250 RX: Lisinopril [Zestril TAB] 2.5 mg PO QDAY 09/01/19 09/09/20 09/08/20 10:00 History 2.5 RX: Sitagliptin Phosphate [Januvia] 100 mg PO DAILY 09/01/19 09/09/20 09/08/20 10:00 History 100 RX: Aspirin [Adult Aspirin] 81 tab PO DAILY 09/09/20 09/09/20 09/08/20 10:00 History 81 RX: Varenicline Tartrate [Chantix] 1 tab PO BID 09/09/20 09/09/20 09/08/20 18:00 History 1 RX: hydroCHLOROthiazide 25 mg PO DAILY 09/09/20 09/09/20 09/08/20 10:00 History [Hydrochlorothiazide] 1 RX: Metoprolol [Lopressor TAB] 50 mg PO BID #60 tablet 09/10/20 Unknown Rx Active Meds: Active Medications Acetaminophen (Acetaminophen 325 Mg Tab) 650 mg PO Q6H PRN PRN Reason: Pain, Mild (1-3) Last Admin: 09/09/20 08:15 Dose: 650 mg Documented by: Amitriptyline HCl (Amitriptyline 25 Mg Tab) 25 mg PO QHS [facility] Aspirin (Aspirin Ec 81 Mg Tab) 81 mg PO DAILY [facility] Last Admin: 09/09/20 09:14 Dose: 81 mg Documented by: Divalproex Sodium (Divalproex Er 250 Mg Tab) 250 mg PO BID [facility] Last Admin: 09/09/20 10:13 Dose: 250 mg Documented by: Famotidine (Famotidine 20 Mg Tab) 20 mg PO QDAY [facility] Heparin Sodium (Porcine) (Heparin 5,000 Unit/1 Ml Vial) 5,000 unit SUB-Q Q8HR [facility] Last Admin: 09/09/20 13:24 Dose: 5,000 unit Documented by: Hydrochlorothiazide (Hydrochlorothiazide 25 Mg Tab) 25 mg PO QDAY [facility] Last Admin: 09/09/20 09:15 Dose: 25 mg Documented by: Lisinopril (Lisinopril 5 Mg Tab) 2.5 mg PO QDAY [facility] Last Admin: 09/09/20 09:15 Dose: 2.5 mg Documented by: Magnesium Hydroxide (Magnesium Hydroxide (Mom) Oral Liqd Udc) 30 ml PO Q4H PRN PRN Reason: Constipation Metoprolol Tartrate (Metoprolol Tartrate 25 Mg Tab) 50 mg PO BID [facility] Miscellaneous Medication (Varenicline Tartrate [Chantix]) 1 tab PO BID [facility] Morphine Sulfate (Morphine 2 Mg/1 Ml Inj) 2 mg IV Q4H PRN PRN Reason: Pain, Moderate (4-6) Ondansetron HCl (Ondansetron 4 Mg/2 Ml Inj) 4 mg IV Q8H PRN PRN Reason: Nausea And Vomiting Oxycodone/Acetaminophen (Oxycodone /Acetaminophen 5-325mg Tab) 1 tab PO Q6HR PRN PRN Reason: Pain, Moderate (4-6) Last Admin: 09/09/20 10:12 Dose: 1 tab Documented by: Sodium Chloride (Sodium Chloride 0.9% 10 Ml Flush Syringe) 10 ml IV BID [facility] Last Admin: 09/09/20 09:20 Dose: Not Given Documented by: Sodium Chloride (Sodium Chloride 0.9% 10 Ml Flush Syringe) 10 ml IV PRN PRN PRN Reason: LINE FLUSH Physical Examination Vital signs: Vital Signs Pulse 168 H 09/08/20 21:08 Results - Laboratory Findings CBC and BMP: 09/09/20 07:24 09/10/20 05:27 PT/INR, D-dimer PT 13.5 Sec. (12.2-14.9) 09/09/20 07:24 INR 1.04 (0.87-1.13) 09/09/20 07:24 Abnormal lab findings: Abnormal Labs 09/08/20 09/08/20 09/09/20 21:19 21:19 07:24 WBC 11.7 H Hgb 16.2 H Hct 49.0 H 43.0 H D MCV 100 H MCH 33 H Eos % (Auto) 4.9 H Eos # (Auto) 0.5 H Eosinophils % (Manual) 5.0 H Seg Neutrophils # Man 8.1 H Eosinophils # (Manual) 0.6 H Sodium Chloride 96.7 L Creatinine 1.3 H Glucose 122 H Albumin 3.8 L 09/09/20 07:24 WBC Hgb Hct MCV MCH Eos % (Auto) Eos # (Auto) Eosinophils % (Manual) Seg Neutrophils # Man Eosinophils # (Manual) Sodium 136 L Chloride Creatinine Glucose Albumin
[2020-09-09] MEDS ORDERED: AMITRIPTYLINE 25 MG TAB PO SCH (22:00)
[2020-09-10 06:26] LABS: BUN/Creatinine Ratio 15; Blood Urea Nitrogen 15 mg/dL (7-17); Calcium 9.2 mg/dL (8.4-10.2); Hemolysis Index 46
[2020-09-10] MEDS: HEPARIN 5,000 UNIT/1 ML VIAL SUB-Q SCH (06:30)
[2020-09-10] MEDS ORDERED: REGADENOSON 0.4 MG/5 ML INJ IV ONE ×2 (07:14→11:08)
[2020-09-10 09:36] VITALS: BP 144/80
[2020-09-10] MEDS ORDERED: FAMOTIDINE 20 MG TAB PO SCH (10:00)
--- NOTE | 2020-09-10 11:12 | Progress Note ---
Assessment and Plan This pt is a 70 year old female with a significant hx of HTN, DM, seizure disorder, and hx of covid 19 infection- Covid testing is negative. She is previously unknown to our practice. She is followed by Dr Man Momin. Pt presented to [facility] ER via EMS with a complaint of SOB, palpitations. She was found to be in SVT HR180 and was subsequently converted to sinus rhythm with cardizem bolus and gtt. Pt denied any weakness, dizziness, CP, cough, abd pain, N/V/D, recent illness or exposures. She has no prior hx of SVT, CVA, AMI, or other cardiac condition. Cardiology is consulted for tachy arrhythmia. At time of interview pt is resting comfortably in bed, no SOB, no CP. Echo reviewed (08/2019): EF 35-40. Mild LVH. LVSF mod decreased. Repeat echo pending. Cardiology is consulted for tachycardia/SVT. (09/10/2020)-Pt seen in Stress lab, resting comfortably in bed. Tele reviewed: SR 71. No Events. AMI ruled out. Echo reviewed (09/09/2020): EF 45-50%. Lexiscan MPI stress test is negative for ischemia. EF 45% Continue current antihypertensive regimen. BB Metoprolol 50mg BID and continue ACEI Lisinopril 2.5 in given hx of CMP. Pt is in stable cardiac status. Pt may discharge from cardiac standpoint. Will follow in outpatient setting. f/u with Dr Urena in our [place] office on 09/27/2020 @ 2:15pm. This pt was seen in conjunction with Dr Urena who agrees with this assessment and plan of care. - Patient Problems (1) SVT (supraventricular tachycardia) Current Visit: Yes Status: Acute (2) Cardiomyopathy Current Visit: Yes Status: Chronic (3) RBBB Current Visit: Yes Status: Chronic (4) History of seizure Current Visit: Yes Status: Chronic (5) HTN (hypertension) Current Visit: Yes Status: Acute (6) Diabetes Current Visit: Yes Status: Chronic (7) History of COVID-19 Current Visit: Yes Status: Chronic Subjective Date of service: 09/10/20 Principal diagnosis: Chest Pain Interval history: (09/10/2020)-Pt seen in Stress lab, resting comfortably in bed. Tele reviewed: SR 71. No Events. Objective Last Vital Signs Temp 98.0 F 09/10/20 08:19 Pulse 65 09/10/20 08:19 Resp 20 09/10/20 08:19 BP 144/80 09/10/20 08:19 Pulse Ox 95 09/10/20 08:51 - Physical Examination HEENT: Positive: PERRL, Normocephaly, Mucus Membranes Moist Neck: Positive: neck supple, trachea midline Neuro: Positive: Grossly Intact Abdomen: Positive: Unremarkable, Soft Skin: Negative: Rash, Wound Musculoskeletal: No Pain Extremities: Present: upper extr. pulses, lower extr. pulses. Absent: edema - Labs and Meds Comprehensive Metabolic Panel 09/10/20 Range/Units 05:27 Sodium 135 L (137-145) mmol/L Potassium 3.8 (3.6-5.0) mmol/L Chloride 97.9 L (98-107) mmol/L Carbon Dioxide 27 (22-30) mmol/L BUN 15 (7-17) mg/dL Creatinine 1.0 (0.6-1.2) mg/dL Glucose 99 (65-100) mg/dL Calcium 9.2 (8.4-10.2) mg/dL - Imaging and Cardiology EKG: report reviewed, image reviewed Echo: report reviewed (Echo reviewed (08/2019): EF 35-40. Mild LVH. LVSF mod decreased.), image reviewed - EKG Sinus rhythms and dysrhythmias: sinus rhythm
--- NOTE | 2020-09-10 13:52 | Discharge Summary ---
Providers - Providers Date of Admission: 09/08/20 22:47 Date of discharge: 09/10/20 Attending physician: RILEY GUSMAN 09/08/20 23:04 Consult to Dietitian/Nutrition [CONS] Routine Physician Instructions: Reason For Exam: Reason for Consult: Diet education Consult to Physician [CONS] Routine Comment: Consulting Provider: HAYLEY JOHNSON Physician Instructions: Reason For Exam: Cardiac Arrythmia 09/09/20 00:20 Consult to Physician [CONS] Routine Comment: Consulting Provider: ANGELITA NELSON Physician Instructions: Reason For Exam: Cardiac Arryhthmia- on Cardizem drip Primary care physician: [employer] Hospitalization Condition: Critical Hospital course: This is a 70-year-old female with hypertension, diabetes mellitus, seizure disorder, history of COVID-19 infection who presented to emergency department on 09/08 with complaints of strands of breath and palpitations. In the emergency room she was found to be in SVT with heart rate in the 180s subsequently covered with sinus rhythm with Cardizem bolus and initiated on Cardizem drip. Lab work revealed slight hypochloremia and KI. Patient was admitted to the hospital service for further work-up with consultation to cardiology. Daily clinical course: 09/09: Patient has been transitioned off of Cardizem drip and on p.o. beta- blockers. Cardiology plans to conduct a stress test in the morning. Patient will be n.p.o. after midnight. No acute events reported while in the ICU. 09/10: patient clinically stable. had stress test today. Cardiology cleared for discharge and recommended her to follow-up as outpatient in 1 week. Patient verbalized understanding and was discharged home in stable condition with outpat ient follow-up. Disposition: - TO HOME OR SELFCARE Final Discharge Diagnosis (Prints w/discharge instructions): Supraventricular Tachycardia. Leukocytosis, likely reactive. Acute kidney injury 2/2 vasomotor nephropathy. Slight hyponatremia. History of cardiomyopathy. Right bundle branch block. Seizures. Hypertension. Diabetes. History of COVID-19 infection Time spent for discharge: 34 minutes Core Measure Documentation - Palliative Care Palliative Care/ Comfort Measures: Not Applicable - Core Measures Any of the following diagnoses?: history only Exam - Physical Exam Narrative exam: General appearance: Present: no acute distress - EENT Eyes: Present: PERRL, EOM intact ENT: hearing intact, clear oral mucosa, dentition normal - Neck Neck: Present: normal ROM - Respiratory Respiratory effort: normal Respiratory: bilateral: CTA - Cardiovascular Rhythm: regular Heart Sounds: Present: S1 & S2. Absent: systolic murmur, diastolic murmur - Extremities Extremities: no ischemia, pulses intact, pulses symmetrical, No edema, normal temperature, normal color, Full ROM Peripheral Pulses: within normal limits - Abdominal General gastrointestinal: soft, non-tender, non-distended, normal bowel sounds - Integumentary Integumentary: Present: clear, warm, dry - Psychiatric Psychiatric: appropriate mood/affect, cooperative - Neurologic Neurologic: CNII-XII intact, no focal deficits, moves all extremities - Allied Health Allied health notes reviewed: nursing, social work - Constitutional Vitals: Temp Pulse Resp BP Pulse Ox 98.0 F 65 20 144/80 95 09/10/20 08:19 09/10/20 08:19 09/10/20 08:19 09/10/20 08:19 09/10/20 08:51 Plan Activity: advance as tolerated Weight Bearing Status: Non-Weight Bearing Diet: low fat, low salt, diabetic Follow up with: PRIMARY CARE, [Primary Care Provider] - 7 Days JOSSELIN ROLON MD [Staff Physician] - 7 Days Prescriptions: Metoprolol [Lopressor TAB] 50 mg PO BID #60 tablet
--- NOTE | 2020-09-10 14:01 | Nuclear Medicine Report ---
APPROVED REPORT Exam: Nuclear Stress Test BMI: 0 Stress Test Details Stress Test: Pharmacologic stress testing performed using 0.4 mg of regadenoson per 5 mL given IV over 10 seconds. HR Resting HR: 95 bpmMax Heart Rate (APMHR): 148 bpm Max HR Achieved: 118 bpmTarget HR (85% APMHR): 125 bpm % of APMHR: 79 Recovery HR: 103 bpm HR response to stress: Normal HR response to stress BP Resting BP: 143/88 mmHg Max BP: 143/88 mmHg Recovery BP: 118/71 mmHg BP response to stress: Normal blood pressure response to stress. ECG Resting ECG: Sinus Rhythm Stress ECG: Sinus Tachycardia Clinical Reason for Termination: Completed protocol NM EXAM: Myocardial Perfusion REST/STRESS Resting Data Rest SPECT myocardial perfusion imaging was performed in supine position 45 minutes following the intravenous injection of 10 mCi of Tc-99m Myoview. Time of rest injection: 0735 Pharmacologic Stress Pharmacologic stress test was performed by injecting Regadenoson 0.4 mg IV push followed by the intravenous injection of 28 mCi of Tc-99m Myoview. Time of stress injection: 1108 Gated Stress SPECT was performed 90 minutes after stress injection. The images were gated to evaluate regional wall motion and calculate left ventricular ejection fraction. Study Data TID = 0.92. Perfusion Nuclear Conclusion ECG Findings: negative for ischemia Clinical Findings: negative for ischemia Nuclear Findings: negative for ischemia Exercise Capacity: abnormal Left Ventricular Function: abnormal Normal study. No scintigraphic evidence for myocardial ischemia or scar. 4 minutes esteban protocol, sob no ekg changes or arrthymia no exaggerated bp mild lv dsyfunction ef 45%, non ischemic cardiomyopathy , negative lexiscan ekg
--- NOTE | 2020-09-10 16:38 | Progress Note ---
Assessment and Plan - continue to wean supplemental oxygen to keep O2 sats > 90% - prn bronchodilators (MARCELO) with pulm hygiene per RT - ACS w/up per cardiology - rate control per cardiology - continue to avoid nephrotoxins, renally dose all medications - continue mobility protocols to prevent pressure ulcers - PT/OT as tolerated - Wound care per RN/WCT - continue accuchecks with glycemic control per SSI for target blood glucose < 180 mg/dL - tobacco abstinence strongly counseled at the bedside - home oxygen evaluation at discharge - GI & VTE prophylaxis - Flu & pneumovax per protocol - Pulmonary out patient follow up for PFTs and optimization of respiratory status - prn analgesia per pain score - continue other care per attending / other consultants ... re-evaluate in am & prn Subjective Date of service: 09/10/20 Principal diagnosis: Chest Pain Interval history: Patient is seen today for: Seen and examined at bedside; 24hour events reviewed; nursing and respiratory care staff consulted; no adverse overnight events reported to me; resting peacefully in bed; denies acute chest pains or palpitations; s/p NM stress test today Objective Vital Signs - 12hr 09/10/20 09/10/20 09/10/20 08:00 08:19 08:51 Temperature 98.0 F Pulse Rate 86 65 Respiratory 20 Rate Blood Pressure 144/80 O2 Sat by Pulse 89 95 Oximetry Constitutional: no acute distress Eyes: non-icteric ENT: oropharynx moist Neck: supple, no lymphadenopathy, no JVD Effort: normal Ascultation: Bilateral: clear Percussion: Bilateral: not dull Cardiovascular: regular rate and rhythm Gastrointestinal: normoactive bowel sounds, soft, non-tender, non-distended Integumentary: normal Extremities: no cyanosis, no edema, pulses normal, no ischemia or petechiae Neurologic: normal mental status, non-focal exam, pupils equal and round, motor strength normal and Psychiatric: mood appropriate, affect normal CBC and BMP: 09/09/20 07:24 09/10/20 05:27 ABG, PT/INR, D-dimer: PT/INR, D-dimer PT 13.5 Sec. (12.2-14.9) 09/09/20 07:24 INR 1.04 (0.87-1.13) 09/09/20 07:24 Abnormal lab findings: Abnormal Labs 09/08/20 09/08/20 09/09/20 21:19 21:19 07:24 WBC 11.7 H Hgb 16.2 H Hct 49.0 H 43.0 H D MCV 100 H MCH 33 H Eos % (Auto) 4.9 H Eos # (Auto) 0.5 H Eosinophils % (Manual) 5.0 H Seg Neutrophils # Man 8.1 H Eosinophils # (Manual) 0.6 H Sodium Chloride 96.7 L Creatinine 1.3 H Glucose 122 H Albumin 3.8 L 09/09/20 09/10/20 07:24 05:27 WBC Hgb Hct MCV MCH Eos % (Auto) Eos # (Auto) Eosinophils % (Manual) Seg Neutrophils # Man Eosinophils # (Manual) Sodium 136 L 135 L Chloride 97.9 L Creatinine Glucose Albumin Allied health notes reviewed: nursing
--- NOTE | 2020-09-10 21:43 | Consultation ---
PULMONARY CRITICAL CARE CONSULT NOTE CONSULTING PHYSICIAN: Dr. Valentino Blank. REASON FOR CONSULTATION: Supraventricular tachycardia, on Cardizem drip. CHIEF COMPLAINT AND HISTORY OF PRESENT ILLNESS: The patient is a 70-year-old female with a past medical history significant amongst other things for a diagnosis of diabetes and seizure disorder, presented to the Emergency Room complaining of shortness of breath and palpitation. It had been going on for about an hour prior to arrival. She said that she has never had it as bad as that before. She denied chest pain, cough, nausea, or vomiting. Denied any fevers or chills. She did complain of dyspnea on exertion and increasing palpitation when she does exert herself. She states she was recently treated for COVID-19 infection. She had similar episodes at that time and so she came in to check and make sure that she did have a recurrence. Vagal maneuvers did not work in the Emergency Room, she was found to essentially be in an SVT with a rate of about 180. She was given IV Cardizem bolus and then started on a Cardizem drip and transferred to the intensive care unit. When I stopped by to see her, she was off Cardizem drip and told that she really never had been started in the Intensive Care Unit. She might have had some in the Emergency Room, she was feeling much better. Symptoms were better. She denied chest pain. She denied palpitations. No nausea, no vomiting. No fevers, no chills. She denies any new onset leg pain or swelling either unilaterally or bilaterally. That really is as much of the history of presentation as I have. PAST MEDICAL HISTORY: Again, significant for hypertension, diabetes, seizure disorder. She is obese. PAST SURGICAL HISTORY: She has had a hysterectomy and she has had a tonsillectomy. MEDICATIONS: She was on at the time I stopped by to see were reviewed. Pertinent medications included the following: Tylenol 650 mg p.o. q. 6 hours p.r.n. mild pain or fevers, Elavil 25 mg p.o. at bedtime, aspirin 81 mg p.o. daily, Depakote 250 mg p.o. b.i.d., Pepcid 20 mg p.o. daily, heparin 5000 units subcutaneous q. 8 hours, hydrochlorothiazide 25 mg p.o. daily, lisinopril 2.5 mg p.o. daily, metoprolol 50 mg p.o. b.i.d., Chantix 1 tablet p.o. b.i.d., morphine sulfate 2 mg IV q. 4 hours p.r.n. moderate pain, Zofran 4 mg IV q. 8 hours p.r.n. nausea and vomiting. ALLERGIES: No known drug allergies. DIET: Obese lady. Denies acute weight loss or gain in the preceding few weeks to months. FAMILY AND SOCIAL HISTORY: Lives in the community. Denies alcohol, tobacco, or illicit drug use or abuse. I do note that she is on Chantix and she does admits to remote history of tobacco abuse, otherwise family history is noncontributory. REVIEW OF SYSTEMS: No loss of consciousness. No new onset seizures. No new onset focal weakness. Denies gross hematochezia or melena. Denies gross hematuria or dysuria. No hematemesis. No hemoptysis. Denies heat or cold intolerance. Denies polydipsia or polyuria. Complete 13-system review of systems obtained. Pertinent positives and/or negatives as in body of history above, otherwise noncontributory. PHYSICAL EXAMINATION: VITAL SIGNS: On examination at presentation, first temperature was 98.0 degrees Fahrenheit, pulse was 168, respiratory rate was 12, blood pressure was 113/81, O2 sats were 93%, inspired oxygen concentration at that time was not recorded. When I stopped by to see her, O2 sats were 98% that was on 2 liters nasal cannula. GENERAL: Again, she is an elderly looking obese female, normocephalic, atraumatic, talking to me in full sentences, but with mildly increased respiratory effort at rest. HEAD, EYES, EARS, NOSE AND THROAT: Anicteric. No conjunctival erythema. Oropharynx was moist. No gross jugular venous distention, no thyromegaly. NECK: Grossly, there were no palpable lymph nodes in the supraclavicular or submandibular lymph node chains. LUNGS: Auscultation of both lung petit significant only for diminished bilateral breath sounds, but clear. No wheezing. HEART: Heart sounds 1 and 2 are heard. They were irregularly irregular at the time of my evaluation without overt rubs or murmurs. ABDOMEN: Soft, full, bowel sounds are positive, nontender, no palpable hepatosplenomegaly. EXTREMITIES: Without overt digital clubbing or cyanosis. Trace pedal edema. Pedal pulses were 2+ bilaterally. NEUROLOGIC: Pupils are equal, round, about 4 mm, reactive to light. Extraocular muscle movements were intact. She moves all 4 extremities spontaneously. SKIN: Normal turgor in the areas examined without overt cellulitis or rash. Please see the wound care nurse's notes for full description of her skin. PSYCHIATRIC: Mood was normal. Affect was appropriate. She had intact judgment and insight. LABORATORY DATA: From my review as follows: Admission white cell count 10,600, hemoglobin 16.2, hematocrit 49.0, platelet count of 246, no significant band forms on the manual differential. INR is 1.04. Serum sodium 137, potassium 3.8, chloride 97, bicarbonate 23, BUN 13, creatinine 1.3, glucose 122. Liver function tests essentially within normal limits. Coronavirus PCR test report has been resulted as negative. No blood cultures. Chest x-ray was done. I have reviewed the images as well as the radiologist's interpretation, borderline cardiomegaly, but no acute process and no significant change from a recent chest x-ray in September 04. Perhaps even if any changes improved from 09/04/2020 chest x-ray. An echocardiogram was also done. It reports EF of 45-50%, mild diastolic dysfunction. Normal right ventricular function and systolic function. ASSESSMENT: 1. Supraventricular tachycardia. 2. Palpitations and shortness of breath. 3. History of hypertension. 4. Diabetes. 5. Seizure disorder. 6. Obesity. 7. Acute kidney injury at presentation. PLAN: The SVT workup is ongoing. I should mention her TSH was within normal limits. I do not see any EKG tracings that document as supraventricular tachycardia; however, the monitoring analyst seems to have recorded a pulse of about 117 in the Emergency Room, I will defer to Cardiology for further management. I do believe she is going to get a stress test. In the meantime, we will continue supplemental oxygen to keep sats greater than or equal to about 90%. Aspiration precautions are being maintained. Tobacco continued abstinence has been counseled. Chronic disease medications should and will be continued including her antiepileptic drugs. She is appropriately on GI and DVT prophylaxis. Weight loss has been counseled. She will benefit from a Sleep Clinic evaluation also. Home oxygen evaluation should be done at discharge. Otherwise, she is on GI and DVT prophylaxis. Flu and pneumonia vaccination should be addressed per protocol. Thank you very much for the consult. We will follow along and make further recommendations as picture progresses/becomes clearer. JOB# [id number] MICHAEL/NATI
--- NOTE | 2020-09-12 11:28 | Treadmill Report ---
[facility] Test Date: 2020-09-10 Test Time: 09:14:55 Pat Name: JESSICA DE ANDA Department: Room: A476 1 Gender: F Science Consultant: Krystle Sanchez : 1950 Requested By: RILEY GUSMAN Order Number: [id number] Reading MD: Tip Choe Interpretive Statements Electronically Signed On 09-12-2020 11:27:34 EDT by Tip Choe
== END 2020-09-10 18:41 | disposition home or self-care (01) ==
LOC: ED 21:02 → CC1 22:47 → INTOOBSV 22:47 → 4A 09-09 22:44
PROVIDERS: ADMIT Internal Medicine Geriatric Medicine; ATTEND Internal Medicine
DX: I47.1 Supraventricular tachycardia (principal); Z20.822 Contact with and (suspected) exposure to COVID-19; I42.9 Cardiomyopathy, unspecified; N17.9 Acute kidney failure, unspecified; E87.1 Hypo-osmolality and hyponatremia; I10 Essential (primary) hypertension; E11.9 Type 2 diabetes mellitus without complications; R56.9 Unspecified convulsions; N28.9 Disorder of kidney and ureter, unspecified; D72.829 Elevated white blood cell count, unspecified; I45.10 Unspecified right bundle-branch block; R00.2 Palpitations; M19.90 Unspecified osteoarthritis, unspecified site; Z90.710 Acquired absence of both cervix and uterus; Z90.49 Acquired absence of other specified parts of digestive tract; Z79.82 Long term (current) use of aspirin
CPT/HCPCS: 36415; 71045; 78452; 80048; 80053; 83735; 84443; 84484; 85025; 85610; 93005; 93017; 93306; 96365; 96366; 96372; 96376; 99291; A9502; G0378; J1644; J2785; J7030; U0003; 85007